=== PATIENT | female | born 1935 | race Caucasian/White ===

== ENCOUNTER → 2019-07-16 15:25 | Outpatient (BNVA) | payer MEDICARE, SELFPAY | PROVIDERS: Family Provider Family Medicine; PCP Family Medicine; Visit Provider Specialist | DX: G30.1 Alzheimer's disease with late onset (principal); F02.80 Dementia in other diseases classified elsewhere, unspecified severity, without behavioral disturbance, psychotic disturbance, mood disturbance, and anxiety | CPT/HCPCS: 99213; 99214 ==

== ENCOUNTER 2019-07-31 12:48 | Emergency (ER) | payer MEDICARE, SELFPAY ==
[2019-07-31 12:51] VITALS: BP 189/103; PULSE 90; RESP 14; TEMP 36.7; O2SAT 97; BMI 25.3
--- NOTE | 2019-07-31 13:10 | CT_ITS ---
WS: [id number] CT HEAD NONCONTRAST HISTORY: fall TECHNIQUE: Contiguous axial imaging performed through the brain in 2.5 mm imaging. Bone and soft tiss ue windows. Sagittal and coronal reformats reviewed. All CT scans at [facility] use at ast one of these dose optimization techniques: automated exposure control; mA and/or kV adjustment pe r patient size (includes targeted exams where dose is matched to clinical indication); or iterative r econstruction. DLP: 783.04 mGy.cm COMPARISON: None available. No acute intracranial hemorrhage, midline shift or mass effect. Mild symmetric atrophy. Mild chronic microvascular ischemic disease. Focal area of more decreased at tenuation in the RIGHT frontal lobe is most likely related to chronic ischemic disease. Ventricles: Normal size with no hydrocephalus. Paranasal sinuses: As visualized are clear. Mastoid air cells: Well pneumatized. Calvarium and scalp: No skull fracture is identified. There is a large acute scalp hematoma and lacer ation centered over the RIGHT lateral frontal bone. Mild atherosclerosis intracranial carotid arteries. CT/CT head wo con* [id number] IMPRESSION: 1. No acute intracranial hemorrhage or edema. 2. Large RIGHT frontal scalp hematoma and laceration.
--- NOTE | 2019-07-31 15:05 | ED_ITS ---
Entered by Dejah Garcia, acting as scribe for Alyx Sanchez MD Jul 31, 2019 12:48 HPI - Fall General: Chief Complaint: Fall Stated Complaint: fall Time Seen by Provider: 07/31/19 15:05 Source: patient Mode of arrival: wheelchair Limitations: no limitations History of Present Illness: HPI Narrative: 84 yo Female presents to ED with complaint of head pain post fall. Pt states that she thinks she tripped and fell, hitting her head on the door case. Pt denies any pain other than in her head. Pt denies any vomiting. MD complaint: fall Onset (ago): hour(s) (about 10:30 this morning) Fall from: standing Fall witnessed: no Place fall occurred: home Loss of consciousness: None Prolonged down time: no Symptoms prior to fall: none Context: tripped/slipped Location of injury: head Severity scale (1-10): 7 Associated symptoms-after fall: Reports headache(s); Denies abdominal pain, chest pain or neck pain Review of Systems Const: Denies: fever, chills, body aches or change in appetite Eyes: Denies: blurry vision or eye discomfort ENMT: Denies: throat pain or dental pain Card: Denies: chest pain Resp: Denies: shortness of breath GI: Denies: abdominal pain, nausea, vomiting or diarrhea : Denies: painful urination Musc: Denies: neck pain or back pain Skin/Breast: Denies: rash Neuro: Reports: headache Psych: Denies: depression Huang/Lymph: Denies: easy bruising All/Imm: Denies: hives PFSH ED PFSH: Statuses (acute, chronic, etc) shown below reflect problem list status as previously entered and may not be historically accurate Social History (Updated 07/16/19 @ 16:10 by Chanel Diana LPN) Smoking and tobacco status: never smoked Alcohol intake: never Physical Exam Const: COMMON NORMALS: no apparent distress, oriented x3 and healthy appearing HENMT: COMMON NORMALS: normocephalic; head/scalp not atraumatic HEAD & SCALP: normocephalic and hematoma right frontal ; not atraumatic Eye: COMMON NORMALS: PERRL and EOMs intact bilaterally PUPIL: Yes PERRL Neck/C-Spine: COMMON NORMALS: full ROM and supple Chest: COMMONS NORMALS: inspection of chest normal and palpation of chest normal Resp: COMMON NORMALS: normal respiratory effort, no retractions, no use of accessory muscles and clear to auscultation bilaterally AUSCULTATION: clear to auscultation bilaterally Cardio: COMMON NORMALS: regular rate, regular rhythm and no murmurs RATE: regular rate RHYTHM: regular rhythm GI: COMMON NORMALS: normal to inspection, nondistended, normoactive bowel sounds, soft to palpation, non-tender and no masses PALPATION: Yes soft Extremity: COMMON NORMALS: normal to inspection and full ROM Neuro: COMMON NORMALS: oriented x3, moves all extremities and no focal motor deficits Psych: COMMON NORMALS: mental status grossly normal, thought process normal and cooperative THOUGHT PROCESS: normal thought process Skin: COMMON NORMALS: no rashes or lesions noted and no wounds GENERAL SKIN EXAM: no rashes or lesions noted Course Vital Signs: Vital signs: Vital Signs Temperature 98.0 F 07/31/19 12:51 Pulse Rate 90 07/31/19 12:51 Respiratory Rate 14 07/31/19 12:51 Blood Pressure 189/103 07/31/19 12:51 Pulse Oximetry 97 07/31/19 12:51 MDM - Fall MDM Narrative: Medical decision making narrative: Patient presents here with a closed head injury from a fall. Patient's head CT here is negative. She has a mild headache and no other signs of injuries. She has no neck pain and no hip pain. Patient is amatory. Patient stable for discharge and is to follow-up with primary care doctor and return to ER if worsening. Imaging Data^: CT Head: Radiologist's impression: [address] [address] [address] Scan Report Signed Patient: Rebecca Longoria #: [id number] : 5Acct#:[id number] Age/Sex: 84 / FADM Date: 07/31/19 Loc: ERRoom/Bed: Attending Dr: Ordering Provider/Ordering MD: Alyx Sanchez MD Date of Service: 07/31/19 Procedure(s): CT head wo con* [id number] Accession Number(s): [id number] Report Number: [id number] WS: [id number] CT HEAD NONCONTRAST HISTORY: fall TECHNIQUE: Contiguous axial imaging performed through the brain in 2.5 mm frida ging. Bone and soft tissue windows. Sagittal and coronal reformats reviewed. All CT scans at [facility] use at least one of these dose optimization techniques: automated exposure control; mA and/or kV adjustment per patient size (includes targeted exams where dose is matched to clinical indication); or iterative reconstruction. DLP: 783.04 mGy.cm COMPARISON: None available. No acute intracranial hemorrhage, midline shift or mass effect. Mild symmetric atrophy. Mild chronic microvascular ischemic disease. Focal area of more decreased attenuation in the RIGHT frontal lobe is most likely related to chronic ischemic disease. Ventricles: Normal size with no hydrocephalus. Paranasal sinuses: As visualized are clear. Mastoid air cells: Well pneumatized. Calvarium and scalp: No skull fracture is identified. There is a large acute scalp hematoma and laceration centered over the RIGHT lateral frontal bone. Mild atherosclerosis intracranial carotid arteries. CT/CT head wo con* [id number] IMPRESSION: 1. No acute intracranial hemorrhage or edema. 2. Large RIGHT frontal scalp hematoma and laceration. Dictated By:Louise Fair DO Signed By:Louise Fair DOSigned Date/Time:07/31/19 1400 DD/ 1355 Discharge Plan Discharge Patient Disposition: Home, Self-Care Clinical Impression: Fall CHI (closed head injury) Qualifiers: Encounter type: initial encounter Qualified Code(s): S09.90XA - Unspecified injury of head, initial encounter Condition: Stable Prescriptions: No Action Xylimelts 550 mg muco-adhesive buccal tablet MUCOUS MEM ONCE RF: 0 apple cider vinegar 600 mg capsule 450 mg PO ONCE RF: 0 aloe vera 25 mg capsule PO ONCE RF: 0 prednisone 10 mg tablet 10 mg PO ONCE RF: 0 levothyroxine 50 mcg capsule 50 mcg PO ONCE RF: 0 hydroxychloroquine 200 mg tablet 200 mg PO BID RF: 0 acetaminophen [Tylenol] 325 mg capsule 325 mg PO ONCE RF: 0 melatonin 10 mg capsule 10 mg PO ONCE RF: 0 trazodone 100 mg tablet 100 mg PO ONCE RF: 0 folic acid 1 mg tablet 1 mg PO ONCE RF: 0 rivastigmine 9.5 mg/24 hr patch 24 hour 1 patch TRANSDERMA ONCE Qty: 30 RF: 5 Discharge Orders: Discharge Order (Routine); Ordered 07/31/19 Ordered By: Alyx Sanchez Referrals: Johnnie Tam, DO [Primary Care Provider] - 4-7 days Discharge Diet: Advance as tolerated Discharge Activity: Resume usual activity Patient Instructions: Minor Head Injury (ED), Fall Prevention (ED) Coding Level of Care Code ED Cloth Washer Back Tender for Chg Fwd Exam Problem Focused The documentation recorded by the Jose jesus Carmen, accurately reflects the service I personally performed and the decisions made by Laura velasco Korby, MD Jul 31, 2019 12:48
[2019-07-31] MEDS: acetaminophen 325 mg Tablet 650 MG PO (15:39)
[2019-07-31 15:48] VITALS: BP 118/73; PULSE 70; RESP 20; O2SAT 97
== END 2019-07-31 15:44 | disposition home or self-care (01) ==
PROVIDERS: Emergency Provider Emergency Medicine; Family Provider Family Medicine; PCP Family Medicine
DX: S09.8XXA Other specified injuries of head, initial encounter (principal); W01.0XXA Fall on same level from slipping, tripping and stumbling without subsequent striking against object, initial encounter; Y92.009 Unspecified place in unspecified non-institutional (private) residence as the place of occurrence of the external cause
CPT/HCPCS: 70450; 99281; 99282

== ENCOUNTER 2019-08-20 15:06 | Outpatient (CLI) | payer MEDICARE, SELFPAY ==
--- NOTE | 2019-08-20 15:27 | XR_ITS ---
WS: [id number] KNEE RIGHT TECHNIQUE: 3 views of the right knee CLINICAL INFORMATION: RIGHT HIP PAIN, RIGHT KNEE PAIN COMPARISON: None. FINDINGS: Postoperative changes right TKA. No evidence of hardware loosening. Hardware is in good position. Pat ellar resurfacing. Soft tissue edema. Patellar tendon enthesophyte. XR/XR knee RT 3V* [id number] IMPRESSION: 1. Postoperative changes right TKA. No evidence of loosening. Patellar resurfa cing.
--- NOTE | 2019-08-20 15:27 | XR_ITS ---
WS: [id number] HIP WITH PELVIS RIGHT TECHNIQUE: 3 views of the right hip with pelvis CLINICAL INFORMATION: RIGHT HIP PAIN, RIGHT KNEE PAIN COMPARISON: None. FINDINGS: Osteopenia. Moderate degenerative arthritis right hip with joint space narrowing. Normal pubic rami. No acute fractures. Pelvic phleboliths. XR/XR hip RT 2-3V wo/w pel* [id number] IMPRESSION: Moderate degenerative arthritis right hip. No acute fractures.
== END 2019-08-20 15:07 | disposition home or self-care (01) ==
LOC: RADWPI 15:09
PROVIDERS: Family Provider Family Medicine; PCP Family Medicine; Visit Provider Family Medicine
DX: M25.561 Pain in right knee (principal); W19.XXXA Unspecified fall, initial encounter; Z96.651 Presence of right artificial knee joint; M16.11 Unilateral primary osteoarthritis, right hip
CPT/HCPCS: 73502; 73562

== ENCOUNTER → 2019-09-05 08:46 | Outpatient (BNVA) | payer MEDICARE, SELFPAY | PROVIDERS: Family Provider Family Medicine; PCP Family Medicine; Visit Provider Specialist | DX: G31.83 Neurocognitive disorder with Lewy bodies; F02.80 Dementia in other diseases classified elsewhere, unspecified severity, without behavioral disturbance, psychotic disturbance, mood disturbance, and anxiety | CPT/HCPCS: 96116; 99214 ==

== ENCOUNTER 2019-09-11 06:00 | Outpatient (RCR) | payer MEDICARE, SELFPAY | END 2019-10-02 23:59 | disposition home or self-care (01) | LOC: SPT 06:00 | PROVIDERS: Family Provider Family Medicine; PCP Family Medicine; Referring Provider Family Medicine; Visit Provider Family Medicine | DX: R26.89 Other abnormalities of gait and mobility (principal); M62.81 Muscle weakness (generalized); G47.00 Insomnia, unspecified; F03.90 Unspecified dementia, unspecified severity, without behavioral disturbance, psychotic disturbance, mood disturbance, and anxiety | CPT/HCPCS: 97110; 97162 ==

== ENCOUNTER 2019-10-03 06:00 | Outpatient (RCR) | payer MEDICARE, SELFPAY | END 2019-11-01 23:59 | disposition home or self-care (01) | LOC: SPT 06:00 | PROVIDERS: Family Provider Family Medicine; PCP Family Medicine; Referring Provider Family Medicine; Visit Provider Family Medicine | DX: R26.89 Other abnormalities of gait and mobility (principal); M62.81 Muscle weakness (generalized); G47.00 Insomnia, unspecified; F03.90 Unspecified dementia, unspecified severity, without behavioral disturbance, psychotic disturbance, mood disturbance, and anxiety | CPT/HCPCS: 97110 ==

== ENCOUNTER → 2019-10-29 09:52 | Outpatient (BNVA) | payer MEDICARE, SELFPAY | PROVIDERS: Family Provider Family Medicine; PCP Family Medicine; Visit Provider Specialist | DX: G31.83 Neurocognitive disorder with Lewy bodies (principal); F02.80 Dementia in other diseases classified elsewhere, unspecified severity, without behavioral disturbance, psychotic disturbance, mood disturbance, and anxiety | CPT/HCPCS: 99213 ==

== ENCOUNTER → 2019-12-11 14:22 | Outpatient (BNVA) | payer MEDICARE, SELFPAY | PROVIDERS: Family Provider Family Medicine; PCP Family Medicine; Visit Provider Specialist | DX: G31.83 Neurocognitive disorder with Lewy bodies (principal); F02.80 Dementia in other diseases classified elsewhere, unspecified severity, without behavioral disturbance, psychotic disturbance, mood disturbance, and anxiety | CPT/HCPCS: 99213 ==

== ENCOUNTER → 2020-01-08 09:04 | Outpatient (BNVA) | payer MEDICARE, SELFPAY | PROVIDERS: Family Provider Family Medicine; PCP Family Medicine; Visit Provider Specialist | DX: G31.83 Neurocognitive disorder with Lewy bodies (principal) | CPT/HCPCS: 99213 ==

== ENCOUNTER → 2020-05-28 12:29 | Outpatient (BNVA) | payer MEDICARE, SELFPAY | PROVIDERS: Family Provider Family Medicine; PCP Family Medicine; Visit Provider Specialist | DX: F02.80 Dementia in other diseases classified elsewhere, unspecified severity, without behavioral disturbance, psychotic disturbance, mood disturbance, and anxiety (principal); G31.83 Neurocognitive disorder with Lewy bodies | CPT/HCPCS: 99213 ==

== ENCOUNTER 2020-07-24 15:14 | Outpatient (RCR) | payer MEDICARE, SELFPAY | END 2020-08-03 23:59 | disposition home or self-care (01) | LOC: SPT 15:14 | PROVIDERS: PCP Family Medicine; Referring Provider Family Medicine; Visit Provider Family Medicine | DX: R26.89 Other abnormalities of gait and mobility (principal); M62.81 Muscle weakness (generalized); Z91.81 History of falling | CPT/HCPCS: 97112; 97162 ==

== ENCOUNTER 2020-07-31 18:01 | Emergency (ER) | payer MEDICARE, SELFPAY ==
[2020-07-31] VITALS (8 sets, daily range): BP systolic 158–210; BP diastolic 78–108; PULSE 70–80; RESP 15–18; TEMP 36.7; O2SAT 97–100; BMI 26.2
--- NOTE | 2020-07-31 19:26 | CTR_ITS ---
PROCEDURE INFORMATION: Exam: CT Head Without Contrast Exam date and time: 07/31/2020 7:36 PM Age: 85 years old Clinical indication: Dizziness; Additional info: Dizzy TECHNIQUE: Imaging protocol: Computed tomography of the head without contrast. Radiation optimization: All CT scans at this facility use at least one of these dose optimization techniques: automated exposure control; mA and/or kV adjustment per patient size (includes targeted exams where dose is matched to clinical indication); or iterative reconstruction. COMPARISON: CT head wo con* [id number] 07/31/2019 2:03 PM RADIATION DOSE METRICS: Total DLP (mGy-cm): 768.05 FINDINGS: Brain: There is volume loss and periventricular low density compatible with chronic small vessel disease changes. There is no acute hemorrhage, edema or mass effect. There are small bifrontal benign hygromas. 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 Cerebral ventricles: No ventriculomegaly. Bones/joints: Unremarkable. No acute fracture. Paranasal sinuses: Visualized sinuses are unremarkable. No fluid levels. Mastoid air cells: There is unchanged trace opacity in the bilateral mastoid air cells. Soft tissues: Unremarkable. CT/CT head wo con* [id number] IMPRESSION: 1. No acute intracranial abnormality. 2. There is unchanged trace opacity in the bilateral mastoid air cells. Radiation Dose CTDIVOL = (mGy): DLP = 768.05 (mGy-cm)
--- NOTE | 2020-07-31 19:32 | ED_ITS ---
HPI - General Adult General: Chief complaint: General Medical Stated complaint: High blood pressure for a couple days Time Seen by Provider: 07/31/20 19:03 Source: patient Mode of arrival: ambulatory Limitations: no limitations History of Present Illness: HPI narrative: 85-year-old female states she been having high blood pressure over the last 2 to 3 weeks. Patient states she was started on metoprolol and her understanding she was supposed to take 1 tablet every other day. I reviewed her pill bottle and she is actually supposed to take 1 tablet twice a day so she has not been taking it for her blood pressure medicine. States she has had some slight dizziness. She denies any chest pain. Denies any worsening or improving factors. Associated symptoms: Deny chest pain, dyspnea, headache(s), nausea, rash or vomiting Review of Systems Const: Denies: fever(s), chills, body aches or change in appetite Eyes: Denies: blurry vision or eye discomfort ENMT: Denies: throat pain or dental pain Card: Denies: chest pain Resp: Denies: dyspnea GI: Denies: abdominal pain, nausea, vomiting or diarrhea : Denies: dysuria Musc: Denies: neck pain or back pain Skin/Breast: Denies: rash Neuro: Reports: dizziness; Denies: headache(s) Psych: Denies: depression Huang/Lymph: Denies: easy bruising All/Imm: Denies: urticaria PFSH ED PFSH: Medical History Pacemaker Surgical History S/P cardiac pacemaker procedure Family History Other CAD (coronary artery disease) Cancer Denies family history of Diabetes Hypertension Stroke Social History Smoking and tobacco status: never smoked Alcohol intake: never History of recent travel: No Physical Exam Const: COMMON NORMALS: no acute distress, patient oriented x3 and healthy appearing HENMT: COMMON NORMALS: normocephalic and atraumatic HEAD & SCALP: normocephalic and atraumatic Eye: COMMON NORMALS: Equal, round and reactive pupils present and EOMs intact bilaterally PUPIL: Yes Equal, round and reactive pupils present Neck/C-Spine: COMMON NORMALS: full ROM and supple Chest: COMMONS NORMALS: normal inspection of the chest and normal palpation of entire chest wall Resp: COMMON NORMALS: normal respiratory effort, No retractions, No use of accessory muscles and clear to auscultation bilaterally AUSCULTATION: clear to auscultation bilaterally Cardio: COMMON NORMALS: regular rate, regular rhythm and No murmurs present (Cardio) RATE: regular rate RHYTHM: regular rhythm GI: COMMON NORMALS: Normal to inspection, nondistended, normoactive bowel sounds present, Soft to palpation, non-tender and no masses PALPATION: Yes Soft to palpation Extremity: COMMON NORMALS: normal to inspection and full ROM Neuro: COMMON NORMALS: patient oriented x3, moves all extremities and no focal motor deficits Psych: COMMON NORMALS: mental status grossly normal, Normal thought process present and cooperative THOUGHT PROCESS: Normal thought process present Skin: COMMON NORMALS: no rashes or lesions noted and no wounds GENERAL SKIN EXAM: no rashes or lesions noted Course Vital Signs: Vital signs: Vital Signs Temperature 98.1 F 07/31/20 18:06 Pulse Rate 80 07/31/20 18:06 Respiratory Rate 16 07/31/20 18:06 Blood Pressure 189/103 07/31/20 18:06 Pulse Oximetry 99 07/31/20 18:06 MDM - General Adult MDM Narrative: Medical decision making narrative: Rebecca presents here with hypertension. After speaking to her she is actually been taking her medicine wrong. Said taking her metoprolol twice a day she has been taking it once every other day. This is likely causing her high blood pressure. I did inform her it probably help her to get a pillbox and will help her with her medications. Her blood pressure here is improved and her work appears all normal. She is stable for discharge and I informed her to take her blood pressure log and follow-up with her PCP. Lab Data: Labs: Lab Results 07/31/20 07/31/20 07/31/20 Range/Units 19:16 19:16 19:16 WBC 6.0 (4.0-10.0) 10^3/ uL RBC 4.36 (4.1-5.3) 10^6/u L Hgb 13.3 (11.5-15.3) g/dL Hct 42.9 (37.0-47.0) % MCV 98.4 (81-99) fL MCH 30.5 (28.0-34.0) pg MCHC 31.0 (30.0-36.0) g/dL RDW 12.8 (12.1-15.1) % Plt Count 199 (130-400) 10^3/c mm MPV 11.2 H (7.4-10.4) fL Neut % (Auto) 55.0 % Lymph % (Auto) 32.9 % Sac % (Auto) 8.4 % Eos % (Auto) 2.5 % Baso % (Auto) 1.0 % Neut # (Auto) 3.29 (1.8-7.7) 10^3/u L Lymph # (Auto) 2.0 (0.8-4.8) 10^3/u L Sac # (Auto) 0.5 (0.2-0.9) 10^3/u L Eos # (Auto) 0.2 (0.0-0.8) 10^3/u L Baso # (Auto) 0.1 (0.0-0.1) 10^3/u L Nucleated RBC % (a uto) 0 % Nucleated RBCs # 0.0 /100WBC Sodium 143 (136-145) mmol/L Potassium 3.9 (3.5-5.1) mmol/L Chloride 108 H (98-107) mmol/L Carbon Dioxide 29 (22-29) mmol/L Anion Gap 9.9 (5-19) BUN 19 (8-23) mg/dL Creatinine 0.9 (0.5-0.9) mg/dL GFR Calculation Not Reportable Glucose 96 (65-115) mg/dL Calculated Osmolal ity 298 H (285-295) mOsm/k g Calcium 9.7 (8.5-10.5) mg/dL TSH 2.37 (0.27-4.20) uIU/ mL [employer] 0.5 L (0.6-1.2) mmol/L Imaging Data^: CT Head: Attestation: I personally reviewed and interpreted this imaging study as follows: Radiologist's impression: [address] [address] [address] Scan Report Signed Patient: Rebecca Longoria Unit #: [id number] : 1935 Age/Sex: 85 / F ADM Date: 07/31/20 Loc: ER Room/Bed: Attending Dr: Ordering Provider/Ordering MD: Alyx Sanchez MD Date of Service: 07/31/20 Procedure(s): CT head wo con* [id number] Accession Number(s): [id number] Report Number: [id number] PROCEDURE INFORMATION: Exam: CT Head Without Contrast Exam date and time: 07/31/2020 7:36 PM Age: 85 years old Clinical indication: Dizziness; Additional info: Dizzy TECHNIQUE: Imaging protocol: Computed tomography of the head without contrast. Radiation optimization: All CT scans at this facility use at least one of these dose optimization techniques: automated exposure control; mA and/or kV adjustment per patient size (includes targeted exams where dose is matched to clinical indication); or iterative reconstruction. COMPARISON: CT head wo con* [id number] 07/31/2019 2:03 PM RADIATION DOSE METRICS: Total DLP (mGy-cm): 768.05 FINDINGS: Brain: There is volume loss and periventricular low density compatible with chronic small vessel disease changes. There is no acute hemorrhage, edema or mass effect. There are small bifrontal benign hygromas. 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 Cerebral ventricles: No ventriculomegaly. Bones/joints: Unremarkable. No acute fracture. Paranasal sinuses: Visualized sinuses are unremarkable. No fluid levels. Mastoid air cells: There is unchanged trace opacity in the bilateral mastoid air cells. Soft tissues: Unremarkable. CT/CT head wo con* [id number] IMPRESSION: 1. No acute intracranial abnormality. 2. There is unchanged trace opacity in the bilateral mastoid air cells. Radiation Dose CTDIVOL = (mGy): DLP = 768.05 (mGy-cm) Discharge Plan Discharge Patient Disposition: Home Clinical Impression: HTN (hypertension) with goal to be determined Condition: Stable Prescriptions: New metoprolol tartrate 25 mg tablet 25 mg PO BID Qty: 60 RF: 0 No Action levothyroxine 50 mcg capsule 50 mcg PO DAILY@0630 RF: 0 hydroxychloroquine 200 mg tablet 200 mg PO BID@0700,2100 RF: 0 acetaminophen [Tylenol] 325 mg capsule 487.5 mg PO BEDTIME@2099 RF: 0 folic acid 1 mg tablet 1 mg PO DAILY@0700 RF: 0 lithium carbonate 300 mg capsule See Rx Instructions PO BID RF: 0 latanoprost 0.005 % drops 1 drp ophthalmic (eye) BEDTIME@2099 RF: 0 metoprolol tartrate 25 mg tablet 25 mg PO Q12H RF: 0 rivastigmine [Exelon] 4.6 mg/24 hr patch 24 hour 1 patch transdermal Q24H RF: 0 Discharge Orders: Discharge ED (Routine); Ordered 07/31/20 Ordered By: Alyx Sanchez Referrals: Johnnie Tam, [Primary Care Provider] - 1-3 days Discharge Diet: Advance as tolerated Discharge Activity: Resume usual activity Patient Instructions: Hypertension (ED) Coding Level of Care Code ED Aquatic Instructor for Daniel Fwd Exam Comprehensive
[2020-07-31 19:35] LABS: Basophils # 0.1 10^3/uL (0.0-0.1); Eosinophils # 0.2 10^3/uL (0.0-0.8); Eosinophils % 2.5 %; Hematocrit 42.9 % (37.0-47.0); Hemoglobin 13.3 g/dL (11.5-15.3); Lymphocytes % 32.9 %; Mean Corpuscular Hemoglobin 30.5 pg (28.0-34.0); Mean Corpuscular Volume 98.4 fL (81-99); Mean Platelet Volume 11.2 fL (7.4-10.4); Monocytes # 0.5 10^3/uL (0.2-0.9); Monocytes % 8.4 %; Neutrophils # 3.29 10^3/uL (1.8-7.7); Nucleated Red Blood Cells % 0 %; Platelet Count 199 10^3/cmm (130-400); Red Blood Count 4.36 10^6/uL (4.1-5.3); Red Cell Distribution Width 12.8 % (12.1-15.1)
[2020-07-31 20:02] LABS: Lithium 0.5 mmol/L (0.6-1.2)
[2020-07-31 20:12] LABS: Anion Gap 9.9 (5-19); Blood Urea Nitrogen 19 mg/dL (8-23); Calcium 9.7 mg/dL (8.5-10.5); Carbon Dioxide 29 mmol/L (22-29); Chloride 108 mmol/L (98-107); Glucose 96 mg/dL (65-115); Osmolality Calculated 298 mOsm/kg (285-295); Potassium 3.9 mmol/L (3.5-5.1); Sodium 143 mmol/L (136-145); Thyroid Stimulating Hormone 2.37 uIU/mL (0.27-4.20)
[2020-07-31] MEDS: labetalol 5 mg/mL SDV 20mL 10 MG IVP (20:15)
== END 2020-07-31 21:09 | disposition home or self-care (01) ==
PROVIDERS: Emergency Provider Emergency Medicine; PCP Family Medicine
DX: I10 Essential (primary) hypertension (principal); Z95.0 Presence of cardiac pacemaker
CPT/HCPCS: 12345; 70450; 80048; 80178; 84443; 85025; 96374; 99283; J3490

== ENCOUNTER → 2020-10-22 12:17 | Outpatient (BNVA) | payer MEDICARE, SELFPAY | PROVIDERS: PCP Family Medicine; Visit Provider Specialist | DX: G31.83 Neurocognitive disorder with Lewy bodies (principal); F02.80 Dementia in other diseases classified elsewhere, unspecified severity, without behavioral disturbance, psychotic disturbance, mood disturbance, and anxiety | CPT/HCPCS: 99213 ==

== ENCOUNTER 2021-01-01 06:56 | Emergency (ER) | payer MEDICARE, SELFPAY ==
[2021-01-01 07:26] VITALS: BP 179/106; PULSE 77; RESP 16; TEMP 36.5; O2SAT 97; BMI 24.8
--- NOTE | 2021-01-01 07:37 | XR_ITS ---
WS: [id number] Left knee, 3 views, 01/01/2021 Clinical Data: fall Comparison: None. Findings: No fractures or dislocations are seen. The left knee arthroplasty is intact. No loosening is seen.. T he patella is intact. The soft tissues are unremarkable. XR/XR knee LT 3V* [id number] Impression: 1. Negative for left knee fracture. 2. Intact left knee arthroplasty. Kellgren-Kb Classification: NA
--- NOTE | 2021-01-01 07:37 | W.ED.FALL ---
HPI - Fall General: Chief Complaint: Fall Stated Complaint: FALL Time Seen by Provider: 01/01/21 07:30 Source: patient Mode of arrival: ambulatory Limitations: no limitations History of Present Illness: HPI Narrative: Patient is an 85-year-old female who presents to ED today with complaint of left knee pain following a fall that occurred yesterday. Patient tells me she was coming into her house from the garage and thinks she possibly tripped on one of the steps. She states there was also a box on the ground so is not sure if she tripped on the box. Patient states she never had any feeling of lightheadedness, dizziness. No chest pain, shortness of breath, palpitations. Patient has felt completely normal since the fall with the exception of her left knee pain. Patient has been ambulatory on the extremity since the incident. She states following the fall she could not get up from the ground secondary to my knees not working like that stating she has bilateral knee prosthesis. She states she was able to crawl to the living room and then use a piece of furniture to help pull herself up. She did not strike her head or lose consciousness. She does not complain of neck or back pain. No prolonged downtime. MD complaint: fall Onset (ago): day(s) (yesterday) Fall from: standing Fall witnessed: no Place fall occurred: home Loss of consciousness: None Prolonged down time: no Symptoms prior to fall: none Context: tripped/slipped Location of injury - extremities: Left: knee Associated symptoms-after fall: Denies abdominal pain, chest pain, confusion, difficulty walking, headache(s), lightheadedness, neck pain or vertigo Review of Systems Const: Denies: fever(s), chills, body aches, change in appetite, change in weight, fatigue or malaise Eyes: Denies: change in vision, blurry vision, photophobia, floaters or seeing flashes Card: Denies: chest pain, palpitations, irregular heart rhythm, edema, swelling of feet/ankles, lightheadedness, syncope, pre-syncope or dyspnea on exertion Resp: Denies: dyspnea GI: Denies: abdominal pain, nausea or vomiting : Denies: flank pain or dysuria Musc: Reports: joint pain (L knee) and joint swelling (L knee); Denies: neck pain, back pain, extremity pain, extremity swelling, joint redness, joint warmth or limited range of motion Skin/Breast: Reports: other (bruising to L knee) Neuro: Denies: headache(s), numbness in extremities, weakness in extremities, sensory changes, lack of coordination, difficulty walking, frequent falls, dizziness, vertigo, confusion, behavioral changes, Slurred speech present, difficulty communicating thoughts or seizure-like activity PFS ED PFSH: Medical History Pacemaker Surgical History S/P cardiac pacemaker procedure Family History Other CAD (coronary artery disease) Cancer Denies family history of Diabetes Hypertension Stroke Social History Smoking and tobacco status: never smoked Alcohol intake: never History of recent travel: No Physical Exam Const: COMMON NORMALS: no acute distress, average body habitus, patient oriented x3, no limitations, healthy appearing, alert and well nourished GENERAL APPEARANCE: cooperative ORIENTATION/CONSCIOUSNESS: Yes awake, Yes oriented to person, Yes oriented to place and Yes oriented to time HENMT: COMMON NORMALS: normocephalic and atraumatic HEAD & SCALP: normal to inspection, normocephalic and atraumatic FACE & SINUS: normal facial exam Eye: GENERAL EYE: appearance normal, both eyes and all related structures Neck/C-Spine: COMMON NORMALS: full ROM CERVICAL SPINE: Yes cervical ROM normal, No pain with cervical ROM, No Cervical spine tenderness and No Paracervical muscle tenderness Chest: COMMONS NORMALS: normal inspection of the chest and normal palpation of entire chest wall Resp: COMMON NORMALS: normal respiratory effort and clear to auscultation bilaterally AUSCULTATION: clear to auscultation bilaterally Cardio: COMMON NORMALS: regular rate and regular rhythm RATE: regular rate RHYTHM: regular rhythm Back/Pelvis: COMMON NORMALS: thoracic and lumbar spine normal to inspection, no thoracic nor lumbar tenderness, thoraco-lumbar ROM normal and straight leg raise negative bilaterally Extremity: GENERAL: Yes normal exam except as noted LEFT LOWER EXTREMITY: Yes knee joint (see below) OTHER: she has an area of healing ecchymosis to superior aspect of anterior knee that she states was from bumping it against something 2 wks ago; she has a small area of new ecchymosis to anterior knee just below patella; no obvious swelling noted; maintains fairly normal ROM; NV intact Neuro: COMMON NORMALS: patient oriented x3 SENSORIUM/ORIENTATION: Yes alert, Yes oriented to person, Yes oriented to place and Yes oriented to time Course Vital Signs: Vital signs: Vital Signs Temperature 97.7 F 01/01/21 07:26 Pulse Rate 69 01/01/21 07:40 Respiratory Rate 15 01/01/21 07:40 Blood Pressure 182/77 01/01/21 07:40 Pulse Oximetry 99 01/01/21 07:40 MDM - Fall Imaging Data^: XR L knee: My impression: NAD; no fxs noted; hardware appears intact Discharge Plan Discharge Patient Disposition: Home Clinical Impression: Acute pain of left knee Fall Qualifiers: Encounter type: initial encounter Qualified Code(s): W19.XXXA - Unspecified fall, initial encounter Condition: Stable Prescriptions: No Action levothyroxine 50 mcg capsule 50 mcg PO DAILY@0630 RF: 0 hydroxychloroquine 200 mg tablet 200 mg PO BID@0700,2100 RF: 0 acetaminophen [Tylenol] 325 mg capsule 487.5 mg PO BEDTIME@2100 RF: 0 folic acid 1 mg tablet 1 mg PO DAILY@0700 RF: 0 lithium carbonate 300 mg capsule See Rx Instructions PO BID RF: 0 rivastigmine [Exelon Patch] 4.6 mg/24 hour patch 24 hour 1 patch transdermal Q24H Qty: 30 RF: 5 latanoprost 0.005 % drops 1 drp ophthalmic (eye) BEDTIME@2100 RF: 0 metoprolol tartrate 25 mg tablet 25 mg PO Q12H RF: 0 metoprolol tartrate 25 mg tablet 25 mg PO BID Qty: 60 RF: 0 Discharge Orders: Discharge ED (Routine); Ordered 01/01/21 Ordered By: Romelia Omalley Referrals: Johnnie Tam DO [Primary Care Provider] - Coding Level of Care Code ED [facility] [employer] for Chg Fwd Exam Comprehensive
[2021-01-01 07:40] VITALS: BP 182/77; PULSE 69; RESP 15; O2SAT 99
[2021-01-01 09:17] VITALS: BP 182/77; PULSE 69; RESP 15; O2SAT 99
== END 2021-01-01 09:18 | disposition home or self-care (01) ==
PROVIDERS: Emergency Provider Physician Assistant; PCP Family Medicine
DX: M25.562 Pain in left knee (principal); W19.XXXA Unspecified fall, initial encounter; Z96.652 Presence of left artificial knee joint
CPT/HCPCS: 73562; 99282

== ENCOUNTER 2021-01-06 09:09 | Outpatient (CLI) | payer MEDICARE, SELFPAY ==
--- NOTE | 2021-01-06 09:25 | XRR_ITS ---
PROCEDURE INFORMATION: Exam: XR Bilateral Hips Exam date and time: 01/06/2021 9:25 AM Age: 85 years old Clinical indication: Pain and injury or trauma; Fall; Blunt trauma (contusions or hematomas); Bilateral; Hip pain and pelvic pain; Injury date: 07/2020; Additional info: Hip pain/low back pain/hx of accidental fall TECHNIQUE: Imaging protocol: XR bilateral hips. Views: 2 views of hips with pelvis when performed. COMPARISON: CR XR hip RT 2-3V wo/w pel* [id number] 08/20/2019 3:32 PM FINDINGS: Bones/joints: There is mild degenerative changes of the hip joints, manifested by joint space narrowing and periarticular osteophytes. No acute fracture or dislocation seen. Soft tissues: Unremarkable. XR/XR hip BI 3-4V wo/w pel [id number] IMPRESSION: 1. No acute injury. 2. 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
--- NOTE | 2021-01-06 09:25 | XRR_ITS ---
PROCEDURE INFORMATION: Exam: XR Lumbosacral Spine Exam date and time: 01/06/2021 9:25 AM Age: 85 years old Clinical indication: Pain and injury or trauma; Fall; Blunt trauma (contusions or hematomas); Low back pain; Injury date: 07/2020; Additional info: Hip pain/low back pain/hx of accidental fall TECHNIQUE: Imaging protocol: XR of the lumbosacral spine. Views: 2 or 3 views. COMPARISON: CR XR hip RT 2-3V wo/w pel* [id number] 08/20/2019 3:32 PM FINDINGS: Bones/joints: There is mild dextrocurvature of the lumbar spine. The normal lumbar lordosis is maintained, with grade 1 retrolisthesis of L2. There is mild loss of height along the superior endplate of L2, with evidence of sclerosis, suggestive of chronic fracture. No clear evidence of acute fracture. There is multilevel degenerative changes, manifested by intervertebral disc space narrowing, endplate osteophytes and facet joint arthrosis. Soft tissues: Unremarkable. Vasculature: Aortic atherosclerotic calcifications noted. XR/XR lumbar spine 2-3V* [id number] IMPRESSION: 1. No acute injury. 2. Chronic appearing mild loss of height of the L2 superior endplate. 3. Degenerative changes of the lumbar spine.
== END 2021-01-06 09:10 | disposition home or self-care (01) ==
PROVIDERS: PCP Family Medicine; Visit Provider Nurse Practitioner Family
DX: M25.551 Pain in right hip (principal); M25.552 Pain in left hip; M54.2 Cervicalgia; W19.XXXA Unspecified fall, initial encounter
CPT/HCPCS: 72100; 73522

== ENCOUNTER → 2021-07-11 16:50 | Outpatient (BNVA) | payer MEDICARE, SELFPAY | PROVIDERS: PCP Family Medicine; Visit Provider Family Medicine | DX: N39.0 Urinary tract infection, site not specified (principal) | CPT/HCPCS: 81000 ==

== ENCOUNTER 2021-07-12 17:20 | Observation (INO) | payer MEDICARE, SELFPAY ==
--- NOTE | 2021-07-12 17:23 | ED_ITS ---
Documented by User: Christopher Singleton MD 07/18/21 21:59 HPI - Altered Mental Status General: Chief Complaint: Altered Mental Status Stated Complaint: AMS Time Seen by Provider: 07/12/21 17:23 Source: patient, RN notes reviewed and old records reviewed Limitations: altered mental status History of Present Illness: HPI narrative: Ms. Longoria is an 86-year-old lady who per chart review has a history of hypertension, pacemaker, Parkinson's, Lewy body dementia, and visit for urinary tract infection started on Bactrim who presents to the emergency department due to altered mental status. History is severely limited by mental status. Per nursing report and review of chart patient has been confused perhaps since however more confused today. She was seen in clinic yesterday as noted. The patient apparently does take lithium and it was recommended in previous note by Dr. Villarreal that if patient continues to worsen/fails to improve that she needs to come to the [facility]. 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 Surgical History (Updated 07/12/21 @ 20:50 by Genna Bryant MD) History of bilateral knee arthroplasty S/P cardiac pacemaker procedure S/P carpal tunnel release S/P eye surgery S/P foot surgery S/P hysterectomy Family History Other CAD (coronary artery disease) Cancer Denies family history of Diabetes Hypertension Stroke Social History (Updated 07/12/21 @ 21:18 by Genna Bryant MD) Smoking and tobacco status: never smoked Alcohol intake: never Marital status: / Physical Exam Const: COMMON NORMALS: alert; negative for patient oriented x3 GENERAL APPEARANCE: ill appearing (mildly) ORIENTATION/CONSCIOUSNESS: Yes confused HENMT: COMMON NORMALS: normocephalic, atraumatic and Normal external nose present HEAD & SCALP: normocephalic and atraumatic NOSE: Normal external nose present MOUTH: Normal oral and palatal mucosa present (dry) THROAT: posterior oropharynx normal Eye: COMMON NORMALS: Equal, round and reactive pupils present and conjunctivae normal CONJUNCTIVA: Yes conjunctivae normal SCLERA: sclerae normal PUPIL: Yes Equal, round and reactive pupils present Neck/C-Spine: COMMON NORMALS: supple GENERAL: Yes trachea midline Resp: COMMON NORMALS: normal respiratory effort EFFORT & INSPECTION: Yes able to speak in complete sentences Cardio: COMMON NORMALS: regular rate and regular rhythm RATE: regular rate RHYTHM: regular rhythm GI: COMMON NORMALS: Soft to palpation PALPATION: Yes Soft to palpation, Yes Tenderness to palpation present (GI), No Guarding due to palpation present (GI) and No Rigid due to palpation Extremity: GENERAL: Yes normal exam except as noted and No edema Neuro: COMMON NORMALS: moves all extremities; negative for patient oriented x3 SENSORIUM/ORIENTATION: Yes alert and No Orientation impaired Psych: THOUGHT PROCESS: confused MEMORY/COGNITION: Yes memory grossly impaired Course ED course: - Patient was seen and evaluated by me at bedside - Patient placed on cardiac monitors, IV access obtained - Initial evaluation notable for confused and unable to provide significant history though no focality on neurologic exam. - Labs and imaging were ordered. -Patient care handed off to overnight ED physician pending completion of ED evaluation and likely admission. - Per review patient is supratherapeutic on lithium. Admitted for further treatment and management Note: Click bubbles or prepopulated ocampo in note writing are used for assistance with data collection and billing and are inherently more limited than narrative and other text portions of this note. Please use narrative for additional clinical history and defer to narrative/free test for any case of contradictory information. If information appears in only free text or click bubble it should be considered present or absent as reported. Please contact note senior underwriter for clarifications of clinical information or contradictory information. MDM is a brief summary, contradictory or erroneous seeming information should be clarified and full note griselda Vital Signs: Vital signs: Vital Signs Temperature 98.1 F 07/15/21 17:07 Pulse Rate 76 07/15/21 17:07 Respiratory Rate 18 07/15/21 17:07 Blood Pressure 159/76 07/15/21 17:07 Pulse Oximetry 94 07/15/21 17:07 MDM - Altered Mental Status Medical Records: Attestation: I reviewed the patient's medical records. Lab Data: Attestation: I reviewed the patient's lab results. Labs: Lab Results 07/12/21 07/12/21 07/12/21 18:02 18:02 18:02 WBC 10.0 10^3/uL 10^3 /uL (4.0-10.0) RBC 4.85 10^6/uL 10^6 /uL (4.1-5.3) Hgb 15.0 g/dL g/dL (11.5-15.3) Hct 44.5 % % (37.0-47.0) MCV 91.8 fl fl (81-99) MCH 30.9 pg pg (28.0-34.0) MCHC 33.7 g/dL g/dL (30.0-36.0) RDW 12.9 % % (12.1-15.1) Plt Count 202 10^3/cmm 10^3 /cmm (130-400) MPV 11.6 fL H fL (7.4-10.4) Neut % (Auto) 76.1 % % Lymph % (Auto) 14.6 % % [place] % (Auto) 7.4 % % Eos % (Auto) 1.3 % % Baso % (Auto) 0.3 % % Neut # (Auto) 7.57 10^3/uL 10^3 /uL (1.8-7.7) Lymph # (Auto) 1.5 10^3/uL 10^3/ uL (0.8-4.8) [place] # (Auto) 0.7 10^3/uL 10^3/ uL (0.2-0.9) Eos # (Auto) 0.1 10^3/uL 10^3/ uL (0.0-0.8) Baso # (Auto) 0.0 10^3/uL 10^3/ uL (0.0-0.1) Nucleated RBC % (a uto) 0 % % Nucleated RBCs # 0.0 /100WBC /100W BC Sodium 132 mmol/L L mmol /L (136-145) Potassium 4.3 mmol/L mmol/L (3.5-5.1) Chloride 101 mmol/L mmol/L (98-107) Carbon Dioxide 17 mmol/L L mmol/ L (22-29) Anion Gap 18.3 (5-19) BUN 22 mg/dL mg/dL (8-23) Creatinine 1.2 mg/dL H mg/dL (0.5-0.9) GFR Calculation Not Reportable Glucose 88 mg/dL mg/dL (65-115) POC Glucose Calculated Osmolal ity 277 mOsm/kg L mOs m/kg (285-295) Lactic Acid 0.9 mmol/L mmol/L (0.5-2.2) Calcium 9.6 mg/dL mg/dL (8.5-10.5) Total Bilirubin 0.4 mg/dL mg/dL (0.15-1.2) AST 22 U/L U/L (0-32) ALT 15 U/L U/L (0-33) Alkaline Phosphata se 81 IU/L IU/L (35-105) Creatine Kinase Total Protein 6.5 g/dL L g/dL (6.6-8.7) Albumin 4.3 g/dL g/dL (3.5-5.2) Globulin 2.2 g/dL g/dL (1.3-4.6) TSH 0.21 uIU/mL L uIU /mL (0.27-4.20) Free T4 Free T3 Urine Color Urine Appearance Urine pH Ur Specific Gravit y Urine Protein Urine Glucose (UA) Urine Ketones Urine Blood Urine Nitrate Urine Bilirubin Urine Urobilinogen Ur Leukocyte Alexandra ase Salicylates Urine Opiates Scre en Acetaminophen Ur Barbiturates Sc reen Ur Phencyclidine S crn Ur Amphetamines Sc reen U Benzodiazepines Scrn [place] Urine Cocaine Scre en U Marijuana (THC) Screen Ethyl Alcohol Coronavirus 229E ( PCR) SARS-CoV-2 (PCR) SARS-CoV-2 Ag (Rap id) 07/12/21 07/12/21 07/12/21 18:02 18:02 18:02 WBC RBC Hgb Hct MCV MCH MCHC RDW Plt Count MPV Neut % (Auto) Lymph % (Auto) [place] % (Auto) Eos % (Auto) Baso % (Auto) Neut # (Auto) Lymph # (Auto) [place] # (Auto) Eos # (Auto) Baso # (Auto) Nucleated RBC % (a uto) Nucleated RBCs # Sodium Potassium Chloride Carbon Dioxide Anion Gap BUN Creatinine GFR Calculation Glucose POC Glucose Calculated Osmolal ity Lactic Acid Calcium Total Bilirubin AST ALT Alkaline Phosphata se Creatine Kinase 73 U/L U/L (26-192) Total Protein Albumin Globulin TSH Free T4 2.18 ng/dL H ng/d L (0.82-1.77) Free T3 2.7 PG/ML PG/ML (2.0-4.4) Urine Color Yellow (Yellow) Urine Appearance Clear (CLEAR) Urine pH 7 (5-7) Ur Specific Gravit y 1.005 (1.005-1.030) Urine Protein Neg (Negative) Urine Glucose (UA) Norm (Normal) Urine Ketones Negative (Negative) Urine Blood Neg (Negative) Urine Nitrate Negative (Negative) Urine Bilirubin Neg (Negative) Urine Urobilinogen Norm mg/dL mg/dL (Negative) Ur Leukocyte Alexandra ase Negative (Negative) Salicylates Urine Opiates Scre en Acetaminophen Ur Barbiturates Sc reen Ur Phencyclidine S crn Ur Amphetamines Sc reen U Benzodiazepines Scrn [place] 2.5 mmol/L H* mmo l/L (0.6-1.2) Urine Cocaine Scre en U Marijuana (THC) Screen Ethyl Alcohol Coronavirus 229E ( PCR) SARS-CoV-2 (PCR) SARS-CoV-2 Ag (Rap id) 07/12/21 07/12/21 07/12/21 18:02 18:02 18:21 WBC RBC Hgb Hct MCV MCH MCHC RDW Plt Count MPV Neut % (Auto) Lymph % (Auto) [place] % (Auto) Eos % (Auto) Baso % (Auto) Neut # (Auto) Lymph # (Auto) [place] # (Auto) Eos # (Auto) Baso # (Auto) Nucleated RBC % (a uto) Nucleated RBCs # Sodium Potassium Chloride Carbon Dioxide Anion Gap BUN Creatinine GFR Calculation Glucose POC Glucose 87 mg/dL mg/dL (70-110) Calculated Osmolal ity Lactic Acid Calcium Total Bilirubin AST ALT Alkaline Phosphata se Creatine Kinase Total Protein Albumin Globulin TSH Free T4 Free T3 Urine Color Urine Appearance Urine pH Ur Specific Gravit y Urine Protein Urine Glucose (UA) Urine Ketones Urine Blood Urine Nitrate Urine Bilirubin Urine Urobilinogen Ur Leukocyte Alexandra ase Salicylates < 0.3 mg/dL L mg/ dL (3-10) Urine Opiates Scre en Negative ng/mL ng /mL (Negative) Acetaminophen < 5.0 ug/mL L ug/ mL (10-30) Ur Barbiturates Sc reen Negative ng/mL ng /mL (Negative) Ur Phencyclidine S crn Negative ng/mL ng /mL (Negative) Ur Amphetamines Sc reen Negative ng/mL ng /mL (Negative) U Benzodiazepines Scrn Negative ng/mL ng /mL (Negative) [place] Urine Cocaine Scre en Negative ng/mL ng /mL (Negative) U Marijuana (THC) Screen Negative ng/mL ng /mL (Negative) Ethyl Alcohol < 10 mg/dL mg/dL (0-10) Coronavirus 229E ( PCR) SARS-CoV-2 (PCR) SARS-CoV-2 Ag (Rap id) 07/12/21 07/12/21 21:36 22:35 WBC RBC Hgb Hct MCV MCH MCHC RDW Plt Count MPV Neut % (Auto) Lymph % (Auto) [place] % (Auto) Eos % (Auto) Baso % (Auto) Neut # (Auto) Lymph # (Auto) [place] # (Auto) Eos # (Auto) Baso # (Auto) Nucleated RBC % (a uto) Nucleated RBCs # Sodium Potassium Chloride Carbon Dioxide Anion Gap BUN Creatinine GFR Calculation Glucose POC Glucose Calculated Osmolal ity Lactic Acid Calcium Total Bilirubin AST ALT Alkaline Phosphata se Creatine Kinase Total Protein Albumin Globulin TSH Free T4 Free T3 Urine Color Urine Appearance Urine pH Ur Specific Gravit y Urine Protein Urine Glucose (UA) Urine Ketones Urine Blood Urine Nitrate Urine Bilirubin Urine Urobilinogen Ur Leukocyte Alexandra ase Salicylates Urine Opiates Scre en Acetaminophen Ur Barbiturates Sc reen Ur Phencyclidine S crn Ur Amphetamines Sc reen U Benzodiazepines Scrn [place] Urine Cocaine Scre en U Marijuana (THC) Screen Ethyl Alcohol Coronavirus 229E ( PCR) Not detected (NOT DETECT) SARS-CoV-2 (PCR) Not detected (NOT DETECT) SARS-CoV-2 Ag (Rap id) Negative (Negative) EKG Data^: EKG 1: Attestation: I personally reviewed and interpreted this EKG as follows: EKG interpretation date: 07/12/21 EKG interpretation time: 18:22 Interpretation: Twelve-lead EKG shows a regular rhythm at a rate of 70. MS interval 250. QRS duration 125. QTc 433. Left [place] deviation. Interpretation: Electronic atrially paced rhythm. Bundle branch block. Discharge Plan Discharge Patient Disposition: Admitted As Inpatient Admit Provider: Genna Bryant Clinical Impression: [place] toxicity, Acute renal insufficiency Condition: Stable Discharge Diet: Soft Mechanical Discharge Activity: Resume usual activity Coding Level of Care Code ED Silk Screen Etcher for Chg Fwd Exam Comprehensive Documented by User: Robert Mercado DO 07/12/21 23:10 HPI - Altered Mental Status General: Chief Complaint: Altered Mental Status Stated Complaint: AMS Time Seen by Provider: 07/12/21 17:23 PFSH ED PFSH: Medical History (Updated 07/16/21 @ 00:01 by ) Depression Glaucoma Hypertension Hyperthyroidism Hypothyroidism Lewy body dementia [place] toxicity Long-term use of hydroxychloroquine for treatment of unclear diagnosis 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 Surgical History (Updated 07/12/21 @ 20:50 by Genna Bryant MD) History of bilateral knee arthroplasty S/P cardiac pacemaker procedure S/P carpal tunnel release S/P eye surgery S/P foot surgery S/P hysterectomy Family History Other CAD (coronary artery disease) Cancer Denies family history of Diabetes Hypertension Stroke Social History (Updated 07/12/21 @ 21:18 by Genna Bryant MD) Smoking and tobacco status: never smoked Alcohol intake: never Marital status: / Course Consultations: Consultation #1: aryan Vital Signs: Vital signs: Vital Signs Temperature 98.1 F 07/15/21 17:07 Pulse Rate 76 07/15/21 17:07 Respiratory Rate 18 07/15/21 17:07 Blood Pressure 159/76 07/15/21 17:07 Pulse Oximetry 94 07/15/21 17:07 MDM - Altered Mental Status MDM Narrative: Medical decision making narrative: 86-year-old female checked out to me by the previous physician at shift change. This lady has a worsening mental status. She was diagnosed with a urinary tract infection on the day prior. Urine appears less suspicious today. Her creatinine is 1.2. Her bicarbonate level 17. Her sodium is 132. Her lithium is toxic at 2.5. This is more likely a cause of her decreased mental status she will be admitted for hydration, holding her lithium, other measures as necessary for lithium toxicity. Hospitalist has evaluated the patient in the ER. Lab Data: Labs: Lab Results 07/12/21 07/12/21 07/12/21 18:02 18:02 18:02 WBC 10.0 10^3/uL 10^3 /uL (4.0-10.0) RBC 4.85 10^6/uL 10^6 /uL (4.1-5.3) Hgb 15.0 g/dL g/dL (11.5-15.3) Hct 44.5 % % (37.0-47.0) MCV 91.8 fl fl (81-99) MCH 30.9 pg pg (28.0-34.0) MCHC 33.7 g/dL g/dL (30.0-36.0) RDW 12.9 % % (12.1-15.1) Plt Count 202 10^3/cmm 10^3 /cmm (130-400) MPV 11.6 fL H fL (7.4-10.4) Neut % (Auto) 76.1 % % Lymph % (Auto) 14.6 % % [place] % (Auto) 7.4 % % Eos % (Auto) 1.3 % % Baso % (Auto) 0.3 % % Neut # (Auto) 7.57 10^3/uL 10^3 /uL (1.8-7.7) Lymph # (Auto) 1.5 10^3/uL 10^3/ uL (0.8-4.8) [place] # (Auto) 0.7 10^3/uL 10^3/ uL (0.2-0.9) Eos # (Auto) 0.1 10^3/uL 10^3/ uL (0.0-0.8) Baso # (Auto) 0.0 10^3/uL 10^3/ uL (0.0-0.1) Nucleated RBC % (a uto) 0 % % Nucleated RBCs # 0.0 /100WBC /100W BC Sodium 132 mmol/L L mmol /L (136-145) Potassium 4.3 mmol/L mmol/L (3.5-5.1) Chloride 101 mmol/L mmol/L (98-107) Carbon Dioxide 17 mmol/L L mmol/ L (22-29) Anion Gap 18.3 (5-19) BUN 22 mg/dL mg/dL (8-23) Creatinine 1.2 mg/dL H mg/dL (0.5-0.9) GFR Calculation Not Reportable Glucose 88 mg/dL mg/dL (65-115) POC Glucose Calculated Osmolal ity 277 mOsm/kg L mOs m/kg (285-295) Lactic Acid 0.9 mmol/L mmol/L (0.5-2.2) Calcium 9.6 mg/dL mg/dL (8.5-10.5) Total Bilirubin 0.4 mg/dL mg/dL (0.15-1.2) AST 22 U/L U/L (0-32) ALT 15 U/L U/L (0-33) Alkaline Phosphata se 81 IU/L IU/L (35-105) Creatine Kinase Total Protein 6.5 g/dL L g/dL (6.6-8.7) Albumin 4.3 g/dL g/dL (3.5-5.2) Globulin 2.2 g/dL g/dL (1.3-4.6) TSH 0.21 uIU/mL L uIU /mL (0.27-4.20) Free T4 Free T3 Urine Color Urine Appearance Urine pH Ur Specific Gravit y Urine Protein Urine Glucose (UA) Urine Ketones Urine Blood Urine Nitrate Urine Bilirubin Urine Urobilinogen Ur Leukocyte Alexandra ase Salicylates Urine Opiates Scre en Acetaminophen Ur Barbiturates Sc reen Ur Phencyclidine S crn Ur Amphetamines Sc reen U Benzodiazepines Scrn [place] Urine Cocaine Scre en U Marijuana (THC) Screen Ethyl Alcohol Coronavirus 229E ( PCR) SARS-CoV-2 (PCR) SARS-CoV-2 Ag (Rap id) 07/12/21 07/12/21 07/12/21 18:02 18:02 18:02 WBC RBC Hgb Hct MCV MCH MCHC RDW Plt Count MPV Neut % (Auto) Lymph % (Auto) [place] % (Auto) Eos % (Auto) Baso % (Auto) Neut # (Auto) Lymph # (Auto) [place] # (Auto) Eos # (Auto) Baso # (Auto) Nucleated RBC % (a uto) Nucleated RBCs # Sodium Potassium Chloride Carbon Dioxide Anion Gap BUN Creatinine GFR Calculation Glucose POC Glucose Calculated Osmolal ity Lactic Acid Calcium Total Bilirubin AST ALT Alkaline Phosphata se Creatine Kinase 73 U/L U/L (26-192) Total Protein Albumin Globulin TSH Free T4 2.18 ng/dL H ng/d L (0.82-1.77) Free T3 2.7 PG/ML PG/ML (2.0-4.4) Urine Color Yellow (Yellow) Urine Appearance Clear (CLEAR) Urine pH 7 (5-7) Ur Specific Gravit y 1.005 (1.005-1.030) Urine Protein Neg (Negative) Urine Glucose (UA) Norm (Normal) Urine Ketones Negative (Negative) Urine Blood Neg (Negative) Urine Nitrate Negative (Negative) Urine Bilirubin Neg (Negative) Urine Urobilinogen Norm mg/dL mg/dL (Negative) Ur Leukocyte Alexandra ase Negative (Negative) Salicylates Urine Opiates Scre en Acetaminophen Ur Barbiturates Sc reen Ur Phencyclidine S crn Ur Amphetamines Sc reen U Benzodiazepines Scrn [place] 2.5 mmol/L H* mmo l/L (0.6-1.2) Urine Cocaine Scre en U Marijuana (THC) Screen Ethyl Alcohol Coronavirus 229E ( PCR) SARS-CoV-2 (PCR) SARS-CoV-2 Ag (Rap id) 07/12/21 07/12/21 07/12/21 18:02 18:02 18:21 WBC RBC Hgb Hct MCV MCH MCHC RDW Plt Count MPV Neut % (Auto) Lymph % (Auto) [place] % (Auto) Eos % (Auto) Baso % (Auto) Neut # (Auto) Lymph # (Auto) [place] # (Auto) Eos # (Auto) Baso # (Auto) Nucleated RBC % (a uto) Nucleated RBCs # Sodium Potassium Chloride Carbon Dioxide Anion Gap BUN Creatinine GFR Calculation Glucose POC Glucose 87 mg/dL mg/dL (70-110) Calculated Osmolal ity Lactic Acid Calcium Total Bilirubin AST ALT Alkaline Phosphata se Creatine Kinase Total Protein Albumin Globulin TSH Free T4 Free T3 Urine Color Urine Appearance Urine pH Ur Specific Gravit y Urine Protein Urine Glucose (UA) Urine Ketones Urine Blood Urine Nitrate Urine Bilirubin Urine Urobilinogen Ur Leukocyte Alexandra ase Salicylates < 0.3 mg/dL L mg/ dL (3-10) Urine Opiates Scre en Negative ng/mL ng /mL (Negative) Acetaminophen < 5.0 ug/mL L ug/ mL (10-30) Ur Barbiturates Sc reen Negative ng/mL ng /mL (Negative) Ur Phencyclidine S crn Negative ng/mL ng /mL (Negative) Ur Amphetamines Sc reen Negative ng/mL ng /mL (Negative) U Benzodiazepines Scrn Negative ng/mL ng /mL (Negative) [place] Urine Cocaine Scre en Negative ng/mL ng /mL (Negative) U Marijuana (THC) Screen Negative ng/mL ng /mL (Negative) Ethyl Alcohol < 10 mg/dL mg/dL (0-10) Coronavirus 229E ( PCR) SARS-CoV-2 (PCR) SARS-CoV-2 Ag (Rap id) 07/12/21 07/12/21 21:36 22:35 WBC RBC Hgb Hct MCV MCH MCHC RDW Plt Count MPV Neut % (Auto) Lymph % (Auto) [place] % (Auto) Eos % (Auto) Baso % (Auto) Neut # (Auto) Lymph # (Auto) [place] # (Auto) Eos # (Auto) Baso # (Auto) Nucleated RBC % (a uto) Nucleated RBCs # Sodium Potassium Chloride Carbon Dioxide Anion Gap BUN Creatinine GFR Calculation Glucose POC Glucose Calculated Osmolal ity Lactic Acid Calcium Total Bilirubin AST ALT Alkaline Phosphata se Creatine Kinase Total Protein Albumin Globulin TSH Free T4 Free T3 Urine Color Urine Appearance Urine pH Ur Specific Gravit y Urine Protein Urine Glucose (UA) Urine Ketones Urine Blood Urine Nitrate Urine Bilirubin Urine Urobilinogen Ur Leukocyte Alexandra ase Salicylates Urine Opiates Scre en Acetaminophen Ur Barbiturates Sc reen Ur Phencyclidine S crn Ur Amphetamines Sc reen U Benzodiazepines Scrn [place] Urine Cocaine Scre en U Marijuana (THC) Screen Ethyl Alcohol Coronavirus 229E ( PCR) Not detected (NOT DETECT) SARS-CoV-2 (PCR) Not detected (NOT DETECT) SARS-CoV-2 Ag (Rap id) Negative (Negative) Discharge Plan Discharge Patient Disposition: Admitted As Inpatient Admit Provider: Genna Bryant Clinical Impression: [place] toxicity, Acute renal insufficiency Condition: Stable Discharge Diet: Soft Mechanical Discharge Activity: Resume usual activity Coding Level of Care Code ED Silk Screen Etcher for g Fwd Exam Comprehensive
[2021-07-12 17:30] VITALS: BP 162/71; PULSE 74; RESP 18; TEMP 37.1; O2SAT 94; BMI 23.8
--- NOTE | 2021-07-12 17:39 | CTR_ITS ---
PROCEDURE INFORMATION: Exam: CT Head Without Contrast Exam date and time: 07/12/2021 5:39 PM Age: 86 years old Clinical indication: Altered mental status/memory loss; Patient HX: AMS / PT unable to follow instructions and kept moving even with padding and straps. Best images possible TECHNIQUE: Imaging protocol: Computed tomography of the head without contrast. Total images: 207 Radiation optimization: All CT scans at this facility use at least one of these dose optimization techniques: automated exposure control; mA and/or kV adjustment per patient size (includes targeted exams where dose is matched to clinical indication); or iterative reconstruction. COMPARISON: CT head wo con* [id number] 07/31/2020 7:34 PM RADIATION DOSE METRICS: Total DLP (mGy-cm): 1741.38 FINDINGS: Brain: No evidence of active or acute intracranial pathologic process, hemorrhage, or trauma. No cerebral edema. 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 No mass effect. No midline shift. No hyperdense MCA or insular ribbon sign. Atrophic changes not inconsistent with the patient's advanced chronological age. Cerebral ventricles: No ventriculomegaly. Paranasal sinuses: Visualized sinuses are unremarkable. No fluid levels. Mastoid air cells: Visualized mastoid air cells are well aerated. Bones/joints: Unremarkable. No acute fracture. Soft tissues: Unremarkable. Other findings: Motion artifact. CT/CT head wo con* [id number] IMPRESSION: No evidence of active or acute intracranial pathologic process, hemorrhage, or trauma.
--- NOTE | 2021-07-12 17:39 | XRR_ITS ---
PROCEDURE INFORMATION: Exam: XR Chest Exam date and time: 07/12/2021 5:39 PM Age: 86 years old Clinical indication: Other: AMS; Prior surgery; Surgery type: Pacemaker TECHNIQUE: Imaging protocol: XR of the chest. Views: 1 view. Total images: 1 COMPARISON: CT abdomen pelvis w con* [id number] 09/12/2018 4:29 PM FINDINGS: Tubes, catheters and devices: Pacemaker. Lungs: No visible active interstitial or alveolar airspace disease. Pleural spaces: Unremarkable. No pleural effusion. No pneumothorax. Heart/Mediastinum: Cardiac structures in configuration with arteriosclerosis. Bones/joints: Unremarkable. XR/XR chest 1V portable [id number] IMPRESSION: Nonacute.
--- NOTE | 2021-07-12 17:40 | ECG_ITS ---
[facility] Test Date: 2021-07-12 Pat Name: Rebecca Longoria Department: Room: Gender: Female Ordnance Technician: : 1935 Requested By: Christopher Singleton Order Number: [id number] Owens MD: Tiesha Estrada M.D. Measurements Intervals [place] Rate: 70 P: -73 CA: 250 QRS: -24 QRSD: 125 T: 46 QT: 411 QTc: 446 Interpretive Statements ELECTRONIC ATRIAL PACEMAKER POSSIBLE RIGHT VENTRICULAR CONDUCTION DELAY [RSR (QR) IN V1/V2] LEFT VENTRICULAR HYPERTROPHY AND ST-T CHANGE [VOLTAGE CRITERIA PLUS ST/T ABNORMALITY] POSSIBLE SEPTAL MYOCARDIAL INFARCTION , PROBABLY OLD [30 ms Q WAVE IN V1/V2] No previous ECG available for comparison Electronically Signed On 07-14-2021 5:05:58 OSTRICH FARMER by Tiesha Estrada M.D. [id number] [email or web address]
[2021-07-12 18:06] VITALS: BP 143/67; PULSE 71; RESP 14; O2SAT 98
[2021-07-12 18:11] LABS: Basophils % 0.3 %; Eosinophils # 0.1 10^3/uL (0.0-0.8); Eosinophils % 1.3 %; Hematocrit 44.5 % (37.0-47.0); Lymphocytes # 1.5 10^3/uL (0.8-4.8); Lymphocytes % 14.6 %; Mean Corpuscular HGB Conc 33.7 g/dL (30.0-36.0); Mean Corpuscular Hemoglobin 30.9 pg (28.0-34.0); Mean Corpuscular Volume 91.8 fl (81-99); Mean Platelet Volume 11.6 fL (7.4-10.4); Monocytes # 0.7 10^3/uL (0.2-0.9); Monocytes % 7.4 %; Neutrophils # 7.57 10^3/uL (1.8-7.7); Neutrophils % 76.1 %; Nucleated Red Blood Cells % 0 %; Platelet Count 202 10^3/cmm (130-400); Red Blood Count 4.85 10^6/uL (4.1-5.3); Red Cell Distribution Width 12.9 % (12.1-15.1)
[2021-07-12 18:24] LABS: Glucose Point of Care 87 mg/dL (70-110)
[2021-07-12] MEDS: sodium chloride 0.9% 1,000 ML 999 ML IV (18:28)
[2021-07-12 18:32] LABS: Add Urine Microscopic? NO; Charge for UA Resulting for Rev
[2021-07-12 18:34] LABS: Lactic Sepsis W/Reflex 0.9 mmol/L (0.5-2.2)
[2021-07-12 18:41] LABS: Bilirubin Urine Neg (Negative); Blood Urine Neg (Negative); Glucose Urine UA Norm (Normal); Ketones Urine Negative (Negative); Leukocyte Esterase Urine Negative (Negative); Nitrate Urine Negative (Negative); Protein Urine Neg (Negative); Specific Gravity, Urine 1.005 (1.005-1.030); Urine Appearance Clear (CLEAR); Urine Color Yellow (Yellow); Urobilinogen Urine Norm (Negative); pH Urine 7 (5-7)
[2021-07-12 18:48] LABS: Lithium 2.5 mmol/L (0.6-1.2)
[2021-07-12 19:21] LABS: Alanine Aminotransferase 15 U/L (0-33); Albumin Level 4.3 g/dL (3.5-5.2); Alkaline Phosphatase 81 IU/L (35-105); Anion Gap 18.3 (5-19); Aspartate Amino Transferase 22 U/L (0-32); Blood Urea Nitrogen 22 mg/dL (8-23); Calcium 9.6 mg/dL (8.5-10.5); Carbon Dioxide 17 mmol/L (22-29); Chloride 101 mmol/L (98-107); Globulin 2.2 g/dL (1.3-4.6); Glucose 88 mg/dL (65-115); Osmolality Calculated 277 mOsm/kg (285-295); Potassium 4.3 mmol/L (3.5-5.1); Sodium 132 mmol/L (136-145); Thyroid Stimulating Hormone 0.21 uIU/mL (0.27-4.20); Total Bilirubin 0.4 mg/dL (0.15-1.2); Total Protein 6.5 g/dL (6.6-8.7)
--- NOTE | 2021-07-12 19:25 | CTR_ITS ---
PROCEDURE INFORMATION: Exam: CT Abdomen And Pelvis With Contrast Exam date and time: 07/12/2021 7:25 PM Age: 86 years old Clinical indication: Abdominal pain; Generalized; TECHNIQUE: Imaging protocol: Computed tomography of the abdomen and pelvis with contrast. Radiation optimization: All CT scans at this facility use at least one of these dose optimization techniques: automated exposure control; mA and/or kV adjustment per patient size (includes targeted exams where dose is matched to clinical indication); or iterative reconstruction. Contrast material: VISI; Contrast volume: 95 ml; Contrast route: INTRAVENOUS (IV); COMPARISON: CT abdomen pelvis w con* [id number] 09/12/2018 4:29 PM RADIATION DOSE METRICS: Total DLP (mGy-cm): 1091.08 FINDINGS: Tubes, catheters and devices: Partially visualized pacemaker leads. Liver: There are sub cm cysts with benign features in the liver. Follow-up is not necessary. Gallbladder and bile ducts: Normal. No calcified stones. No ductal dilation. Pancreas: Normal. No ductal dilation. Spleen: Normal. No splenomegaly. Adrenal glands: Normal. No mass. Kidneys and ureters: Multiple renal with benign features the larger of which arises from the anterior aspect of the left kidney measuring 2.6 cm. Follow-up is not necessary. There is an extrarenal pelvis on the right. Stomach and bowel: Moderate stool burden. There is diverticulosis of the colon without evidence of diverticulitis. Appendix: A normal appendix is identified. Intraperitoneal space: Unremarkable. No free air. No significant fluid collection. Vasculature: Calcified plaque is present within multiple vascular structures. Infrarenal abdominal aorta is ectatic measuring 2.1 cm in the transverse dimension. Lymph nodes: Unremarkable. No enlarged lymph nodes. Urinary bladder: Unremarkable as visualized. Reproductive: The uterus is not visualized, consistent with hysterectomy. Bones/joints: There are degenerative changes in the spine. [id number] lower thoracic/upper lumbar dextroscoliosis. Soft tissues: Unremarkable. CT/CT abdomen pelvis w con* [id number] IMPRESSION: No acute findings.Non acute findings as described above.
[2021-07-12 19:56] VITALS: RESP 16
[2021-07-12] MEDS: iodixanol 320 mg/mL 100mL Btl IV (19:56)
[2021-07-12] MEDS: ondansetron 2 mg/ML SDV 2 mL 4 MG IVP (19:56)
[2021-07-12] MEDS: morphine 4 mg/mL SDV 1 mL 2 MG IVP (19:56)
--- NOTE | 2021-07-12 20:45 | PM.HP ---
Providers/Chief Complaint Admitting Physician: Genna Bryant MD Primary Care Provider: Johnnie Tam DO Chief Complaint: AMS History of Present Illness Rebecca Longoria is a 86 year old female with a history of Lewy body dementia who presented to the emergency room with altered mental status. Her in October of this year. She has declined since then. History is obtained from her sister and her niece. They think that in dealing with her grief after he that she quit taking a lot of her medications. The last time she saw Dr. Kennedy in October was when her was in the hospital prior to his . There is indication that she had not been taking her medications as prescribed at that time because of being worried about him. She had wanted Dr. Kennedy to prescribe her a sleeping pill. Several had been tried without any result. Dr. Kennedy iterated that she was not going to prescribe a sleeping pill and patient has not followed with her since then. She was previously stabilized, in terms of her dementia, on Exelon patches 4.6 mg daily. The sister is fairly certain she has not taken the Exelon patch since shortly after that appointment. Looks like the last time prescription appears electronically is in December of 2020. Patient lived alone and had progressively increasing memory issues and confusion over time. She had also had weight loss and was not interacting with her sister as much. She had an apartment in [facility] where she moved to and was staying there. Around a month ago the degree of her confusion worsened possibly acutely. Was taken to [facility] in [place]. She was evaluated in the emergency room and subsequently sent to a nursing facility in [facility]. Unclear if was a dementia unit or other type of facility. She was not actually admitted to the hospital apart from the emergency room according to the sister. From what I gather her mental status and conditioning has further declined in the interim. Patient's son went to visit her in [place] facility she was at about a week ago and she was subsequently taken out of that facility and placed at [facility] living locally on this past . On Tuesday she was seen at the urgent care clinic for possible urinary tract infection. Complaints at that time were altered mental status, dysuria, left-sided flank pain. Urinalysis had leukocyte esterase. She was diagnosed clinically as UTI/Pyelo. Received a dose of Rocephin and was started on some Bactrim of which she has had 1 dose. Today brought in to the emergency room for evaluation due to progressively worsening symptoms even further, today weak and not able to get around as good, not as responsive. There is no report of any fever, vomiting, diarrhea known. In the ED she looks like she was having some abdominal pain. Repeat urinalysis here was normal. She was found to have low sodium, low chloride and slight bump in creatinine. She takes lithium chronically and has for many many years. Unknown if any recent dose changes. Honeygo level was found to be toxic at 2.5. TSH was also found to be low. She does have a history of hypothyroidism and is on chronic levothyroxine. Again unknown if recent dosage changes. She is being admitted for further treatment and evaluation. Review of Systems General: Reports: ROS unobtainable due to medical condition and ROS unobtainable due to mental status Medications/Allergies Home Medications Medication Instructions Recorded Confirmed Last Taken Type folic acid 1 mg tablet 1 mg PO DAILY@79907/16/19 07/12/21 07/12/21 History hydroxychloroquine 200 mg tablet 200 mg PO BID@799,199907/16/19 07/12/21 07/12/21 History levothyroxine 50 mcg capsule 50 mcg PO DAILY@79907/16/19 07/12/21 07/12/21 History lithium carbonate 300 mg capsule 600 mg PO BID@01/08/20 07/12/21 07/12/21 History latanoprost 1 drp OPHTHALMIC (EYE) BEDTIME@199907/31/20 07/12/21 07/11/21 History Bactrim DS 1 tab PO BID@07/12/21 07/12/21 07/12/21 History docusate sodium 100 mg PO DAILY PRN 07/12/21 07/12/21 Unknown History escitalopram oxalate [Lexapro] 5 mg PO DAILY 07/12/21 07/12/21 07/12/21 History melatonin 10 mg PO BEDTIME@199907/12/21 07/12/21 07/11/21 History metoprolol tartrate 150 mg PO BID@07/12/21 07/12/21 07/12/21 History ondansetron HCl [Zofran] 4 mg PO Q6H PRN 07/12/21 07/12/21 Unknown History Allergies Allergy/AdvReac Type Severity Reaction Status Date / Time No Known Allergies Allergy Verified 07/12/21 17:30 PFSH Acute PFSH: Medical History (Updated 07/13/21 @ 08:42 by Genna Bryant MD) Depression Glaucoma Hypertension Hypothyroidism Lewy body dementia Long-term use of hydroxychloroquine for treatment of unclear diagnosis 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 Surgical History (Updated 07/12/21 @ 20:50 by Genna Bryant MD) History of bilateral knee arthroplasty S/P cardiac pacemaker procedure S/P carpal tunnel release S/P eye surgery S/P foot surgery S/P hysterectomy Family History Other CAD (coronary artery disease) Cancer Denies family history of Diabetes Hypertension Stroke Social History (Updated 07/12/21 @ 21:18 by Genna Bryant MD) Smoking and tobacco status: never smoked Alcohol intake: never Substance/Drug Use: never Marital status: / Vitals/I&O/Wt Last Vital Signs Temp 98.8 F 07/12/21 17:30 Pulse 71 07/12/21 18:06 Resp 16 07/12/21 19:56 BP 143/67 07/12/21 18:06 Pulse Ox 98 07/12/21 18:06 Weight last 48 hrs Weight 67.132 kg Physical Exam Narrative: EXAM NARRATIVE: Constitutional: Asleep, not arousing mumbles quite a bit, wants to try to get up to the bedside commode. She speaks in very soft tones, will follow instructions if it has made clear that she needs to but only briefly, looks both acutely and chronically ill HEENT: Bitemporal wasting is noted, pupils are sluggish but equally reactive, extraocular movements are intact though it takes repeated attempts, horizontal gaze nystagmus present, nasopharynx is clear, lips are very dry, limited visualization of the tongue and anterior oral mucosa is also dry, patient is keeping her jaw shut, opens only a small amount with talking, pulls away and will not let me examine her mouth further Neck: Patient keeps her head and neck somewhat rigid every time I touch her. Is not appear rigid when she is trying to position herself from the bed to the bedside commode. Right thyroid lobe is more prominent than the left but not grossly enlarged otherwise. On the left side of the neck there is a 5 to 6 mm diameter soft, somewhat rubbery feeling soft tissue in line with the anterior cervical chain Respiratory: Clear to auscultation bilaterally, mildly tachypneic Cardiovascular: Regular rate and rhythm Abdomen: Soft, mildly tender throughout but inconsistent, nondistended, positive bowel sounds : Normal external genitalia Extremities: No pitting edema, no calf tenderness Skin: Dry, flaking in some places, pale Neuro: Face is symmetric, speech is mumbled and soft, handgrip strength is equal bilaterally, while getting up with assistance from supine position to the side of the bed patient moved in very small increments with every position change. Some mild truncal ataxia noted, she is somewhat plopped down to the bedside commode rather than easing herself into it and had to use her arms to pull up out of it. She has some muscle wasting in her extremities as well. No myoclonic-like movements noted, appears oriented to person but not to place or situation, more task or need oriented in my brief interactions with her Psych: Flat affect Data : 07/12/21 18:02 07/13/21 04:55 Other Labs: Radiology Impressions Chest X-Ray 07/12/21 17:39 IMPRESSION: Nonacute. Head CT 07/12/21 17:39 IMPRESSION: No evidence of active or acute intracranial pathologic process, hemorrhage, or trauma. Abdomen/Pelvis CT 07/12/21 19:25 IMPRESSION: No acute findings.Non acute findings as described above. Laboratory Results WBC 10.0 10^3/uL (4.0-10.0) 07/12/21 18: RBC 4.85 10^6/uL (4.1-5.3) 07/12/21 18: Hgb 15.0 g/dL (11.5-15.3) 07/12/21 18: Hct 44.5 % (37.0-47.0) 07/12/21 18: MCV 91.8 fl (81-99) 07/12/21 18: MCH 30.9 pg (28.0-34.0) 07/12/21 18:02 MCHC 33.7 g/dL (30.0-36.0) 07/12/21 18:02 RDW 12.9 % (12.1-15.1) 07/12/21 18:02 Plt Count 202 10^3/cmm (130-400) 07/12/21 18:02 MPV 11.6 fL (7.4-10.4) H 07/12/21 18:02 Neut % (Auto) 76.1 % 07/12/21 18:02 Lymph % (Auto) 14.6 % 07/12/21 18:02 Posey % (Auto) 7.4 % 07/12/21 18:02 Eos % (Auto) 1.3 % 07/12/21 18: Baso % (Auto) 0.3 % 07/12/21 18:02 Neut # (Auto) 7.57 10^3/uL (1.8-7.7) 07/12/21 18:02 Lymph # (Auto) 1.5 10^3/uL (0.8-4.8) 07/12/21 18:02 Posey # (Auto) 0.7 10^3/uL (0.2-0.9) 07/12/21 18:02 Eos # (Auto) 0.1 10^3/uL (0.0-0.8) 07/12/21 18:02 Baso # (Auto) 0.0 10^3/uL (0.0-0.1) 07/12/21 18: Nucleated RBC % (auto) 0 % 07/12/21 18: Nucleated RBCs # 0.0 /100WBC 07/12/21 18:02 Sodium 132 mmol/L (136-145) L 07/12/21 18:02 Potassium 4.3 mmol/L (3.5-5.1) 07/12/21 18:02 Chloride 101 mmol/L (98-107) 07/12/21 18:02 Carbon Dioxide 17 mmol/L (22-29) L 07/12/21 18:02 Anion Gap 18.3 (5-19) 07/12/21 18:02 BUN 22 mg/dL (8-23) 07/12/21 18:02 Creatinine 1.2 mg/dL (0.5-0.9) H 07/12/21 18:02 GFR Calculation Not Reportable 07/12/21 18: Glucose 88 mg/dL (65-115) 07/12/21 18: POC Glucose 87 mg/dL (70-110) 07/12/21 18:21 Calculated Osmolality 277 mOsm/kg (285-295) L 07/12/21 18: Lactic Acid 0.9 mmol/L (0.5-2.2) 07/12/21 18: Calcium 9.6 mg/dL (8.5-10.5) 07/12/21 18: Total Bilirubin 0.4 mg/dL (0.15-1.2) 07/12/21 18: AST 22 U/L (0-32) 07/12/21 18: ALT 15 U/L (0-33) 07/12/21 18: Alkaline Phosphatase 81 IU/L (35-105) 07/12/21 18: Total Protein 6.5 g/dL (6.6-8.7) L 07/12/21 18: Albumin 4.3 g/dL (3.5-5.2) 07/12/21 18: Globulin 2.2 g/dL (1.3-4.6) 07/12/21 18: TSH 0.21 uIU/mL (0.27-4.20) L 07/12/21 18:02 Urine Color Yellow (Yellow) 07/12/21 18: Urine Appearance Clear (CLEAR) 07/12/21 18: Urine pH 7 (5-7) 07/12/21 18: Ur Specific [place] 1.005 (1.005-1.030) 07/12/21 18: Urine Protein Neg (Negative) 07/12/21 18: Urine Glucose (UA) Norm (Normal) 07/12/21 18: Urine Ketones Negative (Negative) 07/12/21 18: Urine Blood Neg (Negative) 07/12/21 18: Urine Nitrate Negative (Negative) 07/12/21 18: Urine Bilirubin Neg (Negative) 07/12/21 18: Urine Urobilinogen Norm mg/dL (Negative) 07/12/21 18: Ur Leukocyte Esterase Negative (Negative) 07/12/21 18:02 Honeygo 2.5 mmol/L (0.6-1.2) H* 07/12/21 18:02 A&P Assessment and plan (1) Honeygo toxicity: Accidental from the sound of it and it may also be in part due to her coming off of her medications and subsequently being restarted on them at some point or even choosing to take them again. With advancing age I would expect her to need decreasing doses as it is really cleared. Does not have usual GI symptoms associated with acute lithium toxicity beyond complaining of abdominal discomfort. Appears more of a subacute or chronic toxicity with primarily neurological sequalea. Status: Acute Qualifiers: Encounter type: initial encounter Injury intent: accidental or unintentional Qualified Code(s): T56.891A - Toxic effect of other metals, accidental (unintentional), initial encounter (2) Hyperthyroidism: Most likely this is secondary to lithium toxicity but it could also be playing in the presentation both presently as well as in the past 6 to 8 months as her condition has declined. Difficult to know based on reviewing labs at 1 point in time. Also would be impacted by utilization or lack of utilization of her medications.. Status: Acute (3) Acute renal insufficiency: Compared to previously available comparative labs from right at a year ago. May be natural progression in somebody with advanced age versus acute process that exacerbated lithium toxicity in particular. Can also be secondary to lithium toxicity. Status: Acute (4) Lewy body dementia: Previously had had good control on Exelon patch but looks like she quit taking it in December of last year Status: Chronic Qualifiers: Dementia behavioral disturbance: with behavioral disturbance Qualified Code(s): G31.83 - Dementia with Lewy bodies; F02.81 - Dementia in other diseases classified elsewhere with behavioral disturbance (5) Hypertension: Chronically on metoprolol Status: Chronic Qualifiers: Hypertension type: primary hypertension Qualified Code(s): I10 - Essential (primary) hypertension (6) Pacemaker: Placed secondary to bradycardia some years ago Status: Chronic (7) Long-term use of hydroxychloroquine: Unclear diagnosis for which this was prescribed. Clinically patient does not appear to have rheumatoid arthritis nor do I see clear evidence of SLE which is some of the more common diagnoses for which hydroxychloroquine is prescribed. I am wondering if it is being utilized as an alternative anti-inflammatory agent that is a bit more compatible with lithium for osteoarthritis. I do have documentation available in the medical record that she was taking it before the COVID pandemic started. 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 (9) Depression: I wonder if she does not have bipolar depression and that is the reason that she is on the lithium Status: Chronic Qualifiers: Depression Type: other depression Qualified Code(s): F32.89 - Other specified depressive episodes (10) Glaucoma: Utilizes latanoprost eyedrops Status: Chronic Qualifiers: Glaucoma type: unspecified Additional A&P Information Status post Rocephin IM on 07/11/2021 for presumptive UTI, based on symptoms and leukocyte esterase on urinalysis, also started on Bactrim same date; repeat urinalysis here today is unremarkable beyond showing a very concentrated urine by comparison. Recent ED visit in [place] with subsequent SNF, for increasing memory issues and confusion that may have been secondary to lithium toxicity or progression of Lewy body dementia Grieving of her who in October 2020 Inpatient admission IV fluids Hold lithium Serial labs to include renal function and lithium level From what I gather patient has been maintained on lithium for many many years. With such a narrow therapeutic window and advancing age and dementia it may be reasonable to not restart lithium or at the very least considerably decrease the dose to limit risk of toxicity in the future Hold levothyroxine Check free T3 and free T4 Will need repeat check of thyroid function studies upon follow-up and estimates to medications accordingly Monitor urine output closely Hold further Bactrim, discussed with patient's sister and niece, including upon discharge due to risk of worsening renal insufficiency and worsening of lithium toxicity Continue home metoprolol but at half usual dose Telemetry monitoring for arrhythmias Holding hydroxychloroquine presently Request records from asked to see if we can clarify why she is on it Continue latanoprost to both eyes Continue Lexapro at usual home dose Supportive care otherwise Try to avoid medications that may increase lithium levels Depending on clinical course, [facility]; currently not in a state to be able to live in an assisted living facility but hopefully she will improve with correction of the lithium toxicity. She very well may benefit from geriatric psychiatry involvement although I am wondering if that is not what had been arranged as [facility] ER. Will request records from at [facility] visit [facility] for DVT prophylaxis Presently full code. Patient's son has power of state's attorney for decision-making authority. Patient's sister and niece are here locally. They are not certain if Ms. Longoria has expressed specific wishes regarding end-of-life care. They said that her son would be able to provide that information. Attestations Medical Necessity Statement*: Anticipated stay greater than two midnights inpatient presenting with alteration in mental status found to have lithium toxicity, acute renal insufficiency and other issues as described. Presently receiving IV fluids, serial labs and close monitoring. At risk of significant behavioral disturbance, arrhythmia, worsening in renal function and other clinical changes necessitating monitoring in the inpatient stay. Plans are as indicated. Coding Level of Care Code Acute [employer] for [employer] Diagnoses Honeygo toxicity T56.891A Encounter type: initial encounter Injury intent: accidental or unintentional Hyperthyroidism E05.90 Acute renal insufficiency N28.9 Lewy body dementia G31.83; F02.81 Dementia behavioral disturbance: with behavioral disturbance Hypertension I10 Hypertension type: primary hypertension Pacemaker Z95.0 Long-term use of hydroxychloroquine Z79.899 Parkinsonism G21.8 Parkinsonism type: secondary Parkinsonism Secondary Parkinsonism type: other secondary Depression F32.89 Depression Type: other depression Glaucoma H40.9 Glaucoma type: unspecified
[2021-07-12] MEDS: LORazepam 2 mg/mL INJ 1 mL 0.5 MG IVP (20:56)
[2021-07-12 22:12] LABS: SARS Covid-2 Antigen Negative (Negative)
[2021-07-12 22:29] LABS: Creatine Phosphokinase 73 U/L (26-192)
[2021-07-12 22:36] LABS: Free T4 Free Thyroxine 2.18 ng/dL (0.82-1.77); T3 Free 2.7 PG/ML (2.0-4.4)
[2021-07-13] VITALS: BP 165/82; PULSE 80; RESP 17; TEMP 36.5; O2SAT 96
[2021-07-13] MEDS: metoprolol tartrate 50 mg Tablet 75 MG PO ×3 (00:03→20:55)
[2021-07-13] MEDS: enoxaparin 30 mg/0.3 mL Syringe SUBCUT ×2 (00:03→23:14)
[2021-07-13] MEDS: sodium chloride 0.9% 1,000 ML 100 ML IV ×2 (00:03→19:51)
[2021-07-13 00:38] LABS: Adenovirus Not Detected (NOT DETECT); Chlamydia Pneumoniae Not Detected (NOT DETECT); Coronavirus 229E,HKU1,NL63,OC4 Not Detected (NOT DETECT); Human Metapneumovirus Not Detected (NOT DETECT); Human Rhinovirus/Enterovirus Not Detected (NOT DETECT); Influenza A Not Detected (NOT DETECT); Influenza A H1 Not Detected (NOT DETECT); Influenza A H1-2009 Not Detected (NOT DETECT); Influenza A H3 Not Detected (NOT DETECT); Influenza B Not Detected (NOT DETECT); Mycoplasma Pneumoniae Not Detected (NOT DETECT); Parainfluenza Virus Type 1 Not Detected (NOT DETECT); Parainfluenza Virus Type 2 Not Detected (NOT DETECT); Parainfluenza Virus Type 3 Not Detected (NOT DETECT); Parainfluenza Virus Type 4 Not Detected (NOT DETECT); Respiratory Syncytial Virus A Not Detected (NOT DETECT); Respiratory Syncytial Virus B Not Detected (NOT DETECT); SARS-COV-2 Not Detected (NOT DETECT)
[2021-07-13 04:00] VITALS: BP 149/83; PULSE 76; RESP 17; TEMP 36.6; O2SAT 96
[2021-07-13 06:32] LABS: Anion Gap 13.8 (5-19); Blood Urea Nitrogen 18 mg/dL (8-23); Calcium 10.1 mg/dL (8.5-10.5); Carbon Dioxide 20 mmol/L (22-29); Chloride 111 mmol/L (98-107); Glucose 85 mg/dL (65-115); Magnesium 2.3 mg/dL (1.7-2.3); Osmolality Calculated 293 mOsm/kg (285-295); Phosphorus 2.9 mg/dL (2.5-4.5); Potassium 3.8 mmol/L (3.5-5.1); Sodium 141 mmol/L (136-145)
[2021-07-13 06:42] LABS: Lithium 1.8 mmol/L (0.6-1.2)
[2021-07-13 08:00] VITALS: BP 138/77; PULSE 71; RESP 20; TEMP 36.9; O2SAT 96
[2021-07-13] MEDS: folic acid 1 mg Tablet PO (09:17)
[2021-07-13] MEDS: escitalopram 10 mg Tablet 5 MG PO (09:18)
--- NOTE | 2021-07-13 09:41 | PC.CHAP ---
Pastoral Care Encounter/Spiritual Assessment Type of Contact [] Declined business law teacher visit [] Patient/Family/Request visit [] Outpatient visit [] Follow-up visit [] Physician referral [] Code/Alert [] Routine visit [] Staff referral [] Actively dying [] Patient sleeping [] Family support [] [] Out of room [] Palliative care [] [] Receiving care in room [] Pre-surgical visit [] Trauma [] Long length of stay [] ICU visit [] Other: Relational/Emotional Strength [] Patient feels connected with others/family/visitors/staff [] Distress [] Loneliness/isolation [] Abandonment Spirituality of Patient [] Person of Luda [] Attends Orthodox of their Luda [] Believes in Prayer [] Reads Bible or Rastafari materials [] There are Spiritual issues to be addressed Broom Worker Interventions [x] Prayer [x] Active listening [x] Non-anxious presence [] Spiritual/emotional support [] Crisis/trauma care [] Spiritual counseling [] Bereavement support [] Provided bereavement packet [] Provided Bible/devotional materials [] Provided toy/stuffed animal, coloring book to patient or family member [] Provided Communion [] Anointing/Loyal [] Salvation [x] Completed spiritual assessment [] Other: Impact on Illness or Injury [] Angry [] Fearful [] Anxious [] Often cries [] Exhaustion [] Unable to work [] Unable to attend nondenominational [] Unable to walk/stand [] Unable to read [] Unable to drive [] Unable to eat/drink [] Unable to sleep [] Unable to be with family [] Patient intubated [] Other: Summary Time spent with patient 10 min x
--- NOTE | 2021-07-13 10:01 | ECG_ITS ---
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 Measurements Intervals [place]ow Rate: 69 P: 171 WA: 249 QRS: -37 QRSD: 122 T: -19 QT: 415 QTc: 447 Interpretive Statements ELECTRONIC ATRIAL PACEMAKER LEFT AXIS DEVIATION [QRS AXIS < -30] POSSIBLE RIGHT VENTRICULAR CONDUCTION DELAY [RSR (QR) IN V1/V2] LEFT VENTRICULAR HYPERTROPHY AND ST-T CHANGE [VOLTAGE CRITERIA PLUS ST/T ABNORMALITY] POSSIBLE SEPTAL MYOCARDIAL INFARCTION , PROBABLY OLD [30 ms Q WAVE IN V1/V2] Compared to ECG 07/12/2021 18:18:44 Left-axis deviation now present ST (T wave) deviation still present Myocardial infarct finding still present Electronically Signed On 07-14-2021 5:03:45 BRIGHT CUTTER by Tiesha Estrada M.D. [email or web address]
[2021-07-13 12:00] VITALS: BP 150/78; PULSE 70; RESP 18; TEMP 36.9; O2SAT 97
[2021-07-13 13:05] LABS: Acetaminophen < 5.0 ug/mL (10-30); Alcohol Level < 10 mg/dL (0-10); Salicylate < 0.3 mg/dL (3-10)
--- NOTE | 2021-07-13 14:23 | CT_ITS ---
WS: [id number] CT angio headneck* [id number] REASON FOR EXAM: ams, post circulation cva TECHNIQUE: Coronal and sagittal 2-D and MIP reformations. IV CONTRAST ADMINISTERED: 95 mL of Omnipaque 350. TOTAL EXAM DLP: 4085.[address] scans at [facility] use at least one of these dose optimization techniques: automat ed exposure control; mA and/or kV adjustment per patient size (includes targeted exams where dose is matched to clinical indication); or iterative reconstruction. FINDINGS: ORIGINS OF GREAT VESSELS HAND CERVICAL REGION. Patient motion artifact and the pacemaker render the aortic arch and the cervical portion of this exa mination nondiagnostic. As best as can be ascertained the common carotid, internal carotids, and vert ebral arteries are not occluded between the aortic arch and the base of the skull. INTRACRANIAL CIRCULATION. The siphon and terminus portions of the internal carotid arteries are patent and without significant stenosis or thrombus. The anterior and middle cerebral arterial circulations demonstrate no significant stenosis or thrombu s. The basilar artery is patent and without significant stenosis or thrombus. The superior cerebellar and posterior cerebral arterial circulations are patent and without significa nt stenosis or thrombus. CT/CT angio headneck* [id number] IMPRESSION: Limited examination as above with no arterial obstruction identified.
[2021-07-13 14:45] LABS: Rapid Plasma Reagin Syphilis Nonreactive (Nonreactive)
[2021-07-13 15:08] LABS: Folate Level > 20.0 ng/mL (4.8-37.3)
[2021-07-13 15:15] LABS: Vitamin B12 306 pg/mL (232-1245)
[2021-07-13] MEDS: iohexol 350 mg/mL 100 mL Btl IV (15:23)
[2021-07-13 15:57] VITALS: BP 157/76; PULSE 71; RESP 18; TEMP 36.8; O2SAT 94
--- NOTE | 2021-07-13 17:22 | P.PN_ITS ---
Subjective Subjective: Interval history: Sister at bedside. Admitted overnight. On examination lying comfortably in bed. Start patient is mumbling but when spoken to directly is able to answer completely. She states her name, place. States she wants to pass urine. Denies any nausea, vomiting, headache. In distress because of needing to pass urine. Vitals/I&O/Wt Last Vital Signs Temp 98.3 F 07/13/21 15:57 Pulse 71 07/13/21 15:57 Resp 18 07/13/21 15:57 BP 157/76 07/13/21 15:57 Pulse Ox 94 07/13/21 15:57 07/13/21 07/13/21 07/13/21 06:59 14:59 22:59 Intake Total 120 / 120 Output Total 350 / 350 850 / 850 Balance -350 / 650 120 / 120 -850 / -730 Weight last 48 hrs Weight 67.132 kg Physical Exam Narrative: EXAM NARRATIVE: General: In distress as patient wants to pass urine, on entering the room patient is mumbling but speaks currently when spoken to directly, alert to self and place. Fidgety. HEENT: PERRLA, pupils bilaterally equal and reactive erythematous tongue. Chest: Normal vesicular breath sounds, no added sounds, equal good air entry bilaterally CVS: S1-S2 regular, no murmurs, no tachycardia, no gallops, no rubs Abdomen: Soft, nontender, no organomegaly, bowel sounds present Neuro: No focal deficits, no facial deformity, AO x3, power 5/5 in all limbs Data : 07/12/21 18:02 07/13/21 04:55 Micro: Microbiology 07/13/21 10:50 Blood Culture - Preliminary Blood SPECIMEN COLLECTED 07/13/21 10:53 Blood Culture - Preliminary Blood SPECIMEN COLLECTED A&P Assessment and plan (1) Delirium: Most likely worsening of underlying Lewy body dementia along with a possible history of bipolar depression. Patient takes lithium as an outpatient. Less likely infectious cause as patient has had ongoing delirium worsening for last 6 to 7 months since demise of her . Less likely secondary to mildly elevated lithium levels. Requested MRI but could not be done because of history of pacemaker implantation. Check CTA head and neck. Check vitamin B12, folate, RPR, add urine drug screen, salicylate and Tylenol level to labs from yesterday. Repeat lithium level tomorrow morning. Sitter. Frequent reorientation. Day catheterization. Status: Acute (2) Lewy body dementia: Previously had had good control on Exelon patch but looks like she quit taking it in December of last year. Seems to be the driving reason Status: Chronic Qualifiers: Dementia behavioral disturbance: with behavioral disturbance Qualified Code(s): G31.83 - Dementia with Lewy bodies; F02.81 - Dementia in other diseases classified elsewhere with behavioral disturbance (3) [place] toxicity: Not sure of lithium toxicity as not sure how long before the lithium was tested that patient take her medicine. Repeat lithium 1.8 today. Repeat lithium every morning. Start patient on low-dose 300 mg twice daily to avoid withdrawal. Most likely patient takes lithium for bipolar disorder/bipolar depression. Status: Acute Qualifiers: Encounter type: initial encounter Injury intent: accidental or unintentional Qualified Code(s): T56.891A - Toxic effect of other metals, accidental (unintentional), initial encounter (4) Hyperthyroidism: Most likely secondary to high lithium levels. TSH low, free T4 mildly elevated troponin T3 is normal. Will restart levothyroxine at 50 mcg which is her home dose. Does not have any tachycardia, fever, constipation. Status: Acute (5) Acute renal insufficiency: Resolved. Most likely secondary to dehydration admission. Continue with IV fluids as above. Monitor BMP daily. Status: Acute (6) Hypertension: Goal blood pressure less than 140/90 mmHg. On metoprolol goal blood pressure less than 140/90 mmHg. Status: Chronic Qualifiers: Hypertension type: primary hypertension Qualified Code(s): I10 - [place] tial (primary) hypertension (7) Depression: Status: Chronic Qualifiers: Depression Type: other depression Qualified Code(s): F32.89 - Other specified depressive episodes (8) Long-term use of hydroxychloroquine: Unclear diagnosis for which this was prescribed. Clinically patient does not appear to have rheumatoid arthritis nor do I see clear evidence of SLE which is some of the more common diagnoses for which hydroxychloroquine is prescribed. I am wondering if it is being utilized as an alternative anti-inflammatory agent that is a bit more compatible with lithium for osteoarthritis. I do have documentation available in the medical record that she was taking it before the COVID pandemic started. 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 Full code for now. Will discussion detail with son when possible. Tried calling but no answer. Discussed with sister at bedside. She wants uncle to make decisions. Full liquid diet. Protonix OPD prophylaxis. Lovenox for DVT prophylaxis. Attestations Medical Necessity Statement*: Requires further hospitalization for management and evaluation of delirium most likely secondary to advanced Lewy body dementia, possible lithium toxicity while safe discharge planning is sought Time Spent in Patient Care: Greater than 35 minutes (>than 50% of time spent in counselling and/or direct pt care on unit) . Coding Level of Care Code Acute [facility] Liner for [facility] Fwd Diagnoses Delirium R41.0 Lewy body dementia G31.83; F02.81 Dementia behavioral disturbance: with behavioral disturbance [place] toxicity T56.891A Encounter type: initial encounter Injury intent: accidental or unintentional Hyperthyroidism E05.90 Acute renal insufficiency N28.9 Hypertension I10 Hypertension type: primary hypertension Depression F32.89 Depression Type: other depression Long-term use of hydroxychloroquine Z79.899 Parkinsonism G21.8 Parkinsonism type: secondary Parkinsonism Secondary Parkinsonism type: other secondary Glaucoma H40.9 Glaucoma type: unspecified Pacemaker Z95.0
--- NOTE | 2021-07-13 19:15 | PC.NURSE ---
Shift report received from Rome MELTON. Patient sitting up in bed/ alarm on for prevention of falls/safety. Confusion present and patient does challenge bed alarm. Unable to comprehend to use call light for assistance. IV L FA/SL. No fluids infusing at this time as patient per report continually pulls on line. Day patent/draining clear yellow urine. Telemetry monitoring present. No needs noted at this time.
[2021-07-13 19:34] LABS: Amphetamines Screen Urine Negative (Negative); Barbiturates Screen Urine Negative (Negative); Benzodiazepines Screen Urine Negative (Negative); Cocaine Screen Urine Negative (Negative); Opiate Screen Urine Negative (Negative); PCP Screen Urine Negative (Negative); THC Screen Urine Negative (Negative)
[2021-07-13 20:00] VITALS: BP 144/80; PULSE 77; RESP 18; TEMP 36.6; O2SAT 96
[2021-07-13] MEDS: latanoprost 0.005% Op Soln 2.5 mL Btl 1 DROP EYE-BOTH (20:54)
[2021-07-14] VITALS (8 sets, daily range): BP systolic 148–186; BP diastolic 70–92; PULSE 69–81; RESP 16–18; TEMP 36.7–37.1; O2SAT 95–98
--- NOTE | 2021-07-14 00:20 | PC.NURSE ---
Patient in bed/awake. No s/s of pain or discomfort. Sitter at bedside to preserve medical lines. Patient is restless and keeps trying to get out of bed. Patient challenges bed alarm and does not comprehend to call staff for ADL's.
[2021-07-14] MEDS: haloperidol inj 5 mg/mL INJ 1 mL IVP ×3 (01:48→22:11)
--- NOTE | 2021-07-14 02:50 | PC.NURSE ---
Patient in bed/resting at this time. No s/s of pain or discomfort. Sitter at bedside for integrity of medical lines/prevention of falls.
[2021-07-14 07:26] LABS: Alanine Aminotransferase 15 U/L (0-33); Albumin Level 3.9 g/dL (3.5-5.2); Alkaline Phosphatase 93 IU/L (35-105); Aspartate Amino Transferase 22 U/L (0-32); Blood Urea Nitrogen 14 mg/dL (8-23); Calcium 9.5 mg/dL (8.5-10.5); Carbon Dioxide 19 mmol/L (22-29); Chloride 111 mmol/L (98-107); Globulin 1.5 g/dL (1.3-4.6); Glucose 94 mg/dL (65-115); Osmolality Calculated 292 mOsm/kg (285-295); Sodium 141 mmol/L (136-145); Total Bilirubin 0.7 mg/dL (0.15-1.2); Total Protein 5.4 g/dL (6.6-8.7)
[2021-07-14 07:27] LABS: Anion Gap 15.2 (5-19); Potassium 4.2 mmol/L (3.5-5.1)
[2021-07-14 07:46] LABS: Basophils # 0.1 10^3/uL (0.0-0.1); Basophils % 0.5 %; Eosinophils # 0.1 10^3/uL (0.0-0.8); Eosinophils % 1.3 %; Hematocrit 40.6 % (37.0-47.0); Hemoglobin 13.2 g/dL (11.5-15.3); Lymphocytes # 1.3 10^3/uL (0.8-4.8); Lymphocytes % 13.9 %; Mean Corpuscular HGB Conc 32.5 g/dL (30.0-36.0); Mean Corpuscular Hemoglobin 30.8 pg (28.0-34.0); Mean Corpuscular Volume 94.9 fl (81-99); Mean Platelet Volume 14.2 fL (7.4-10.4); Monocytes # 0.8 10^3/uL (0.2-0.9); Monocytes % 8.2 %; Neutrophils # 7.14 10^3/uL (1.8-7.7); Neutrophils % 75.8 %; Nucleated Red Blood Cells % 0 %; Platelet Count 102 10^3/cmm (130-400); Red Blood Count 4.28 10^6/uL (4.1-5.3); Red Cell Distribution Width 13.1 % (12.1-15.1); White Blood Count 9.4 10^3/uL (4.0-10.0)
[2021-07-14 07:47] LABS: Slide Review Slide Review Perform
[2021-07-14] MEDS: sodium chloride 0.9% 1,000 ML 100 ML IV ×3 (08:37→22:52)
[2021-07-14] MEDS: lithium carbonate 300 mg Capsule PO ×2 (08:38→17:29)
[2021-07-14] MEDS: folic acid 1 mg Tablet PO (08:38)
[2021-07-14] MEDS: levothyroxine 50 mcg Tablet PO (08:39)
[2021-07-14] MEDS: escitalopram 10 mg Tablet 5 MG PO (08:39)
[2021-07-14] MEDS: pantoprazole DR 40 mg Tablet PO (08:39)
[2021-07-14] MEDS: metoprolol tartrate 50 mg Tablet 75 MG PO ×2 (08:39→21:52)
[2021-07-14] MEDS: amlodipine 10 mg Tablet PO (10:24)
--- NOTE | 2021-07-14 19:55 | PC.NURSE ---
Shift report received from Lolita MELTON. Patient in bed awake. No s/s of pain or discomfort. IV patent/ infusing NS at 100mL/hr. Day patent draining clear yellow urine. Sitter at bedside for integrity of medical lines/prevention of falls. No needs voiced at this time.
[2021-07-14] MEDS: latanoprost 0.005% Op Soln 2.5 mL Btl 1 DROP EYE-BOTH (21:52)
--- NOTE | 2021-07-14 21:58 | P.PN_ITS ---
Subjective Subjective: Interval history: No acute events overnight. Patient has remained comfortable, sitter at bedside. Patient remains confused. Mumbling but following simple commands. Denies of any acute complaints. Blood pressures have remained slightly elevated. Otherwise have remained on room air and afebrile. MRI could not be done yesterday because of history of pacemaker implantation. Vitals/I&O/Wt Last Vital Signs Temp 98.4 F 07/14/21 15:30 Pulse 73 07/14/21 15:30 Resp 16 07/14/21 15:30 BP 160/70 07/14/21 15:30 Pulse Ox 96 07/14/21 15:30 07/14/21 07/14/21 07/14/21 06:59 14:59 22:59 Intake Total 1000 / 2360 480 / 480 1008.333 / 1488.333 Output Total 1450 / 2800 1150 / 1150 Balance -450 / -440 -670 / -670 1008.333 / 338.333 Physical Exam Narrative: EXAM NARRATIVE: General: In no acute distress, confused, awake, following simple commands, mumbling and fidgety HEENT: PERRLA, pupils bilaterally equal and reactive erythematous tongue. Chest: Normal vesicular breath sounds, no added sounds, equal good air entry bilaterally CVS: S1-S2 regular, no murmurs, no tachycardia, no gallops, no rubs Abdomen: Soft, nontender, no organomegaly, bowel sounds present Neuro: No focal deficits, no facial deformity, AO x3, power 5/5 in all limbs Urinary Catheter Management^: Day: Cath Placed During This Visit: yes Reason for Continuing Indwelling Catheter: Accurate Measurement of Urinary Output in Critically Ill Patients Urinary Catheter Date of Insertion: 07/13/21 Data : 07/14/21 06:06 07/14/21 06:06 Micro: Microbiology 07/13/21 10:53 Blood Culture - Preliminary Blood NEGATIVE TO DATE 07/13/21 10:50 Blood Culture - Preliminary Blood NEGATIVE TO DATE A&P Assessment and plan (1) Delirium: Most likely worsening of underlying Lewy body dementia along with a possible history of bipolar depression. Can be secondary to press syndrome because of elevated blood pressures but less likely. Patient takes lithium as an outpatient. Less likely infectious cause as patient has had ongoing delirium worsening for last 6 to 7 months since demise of her . Less likely secondary to mildly elevated lithium levels. [place] levels within normal limits now. Requested MRI but unfortunately could not be done because of history of pacemaker implantation so cannot confirm press syndrome. CTA head and neck negative for any acute abnormality. Vitamin B12, folate, urine drug screen, salicylate and Tylenol levels within normal limits. RPR pending. Continue with sitter. Frequent reorientation. Day catheterization. Status: Acute (2) Lewy body dementia: Previously had had good control on Exelon patch but looks like she quit taking it in December of last year. Seems to be the driving reason Status: Chronic Qualifiers: Dementia behavioral disturbance: with behavioral disturbance Qualified Code(s): G31.83 - Dementia with Lewy bodies; F02.81 - Dementia in other diseases classified elsewhere with behavioral disturbance (3) [place] toxicity: Resolved. Not sure of lithium toxicity as not sure how long before the lithium was tested that patient take her medicine. Repeat lithium level within normal limits. Start patient on low-dose 300 mg twice daily to avoid withdrawal. Most likely patient takes lithium for bipolar disorder/bipolar depression. Status: Acute Qualifiers: Encounter type: initial encounter Injury intent: accidental or unintentional Qualified Code(s): T56.891A - Toxic effect of other metals, accidental (unintentional), initial encounter (4) Hyperthyroidism: Most likely secondary to high lithium levels. TSH low, free T4 mildly elevated troponin T3 is normal. Will restart levothyroxine at 50 mcg which is her home dose. Does not have any tachycardia, fever, constipation. Will recheck thyroid panel in 1 week. Status: Acute (5) Acute renal insufficiency: Resolved. Most likely secondary to dehydration admission. Continue with IV fluids as above. Monitor BMP daily. Status: Acute (6) Hypertension: Goal blood pressure less than 140/90 mmHg. Continue with home dose of metoprolol, and amlodipine 10 mg daily. We will add further medication if required and a blood pressure higher than excepted range. Status: Chronic Qualifiers: Hypertension type: primary hypertension Qualified Code(s): I10 - Essential (primary) hypertension (7) Depression: Status: Chronic Qualifiers: Depression Type: other depression Qualified Code(s): F32.89 - Other specified depressive episodes (8) Long-term use of hydroxychloroquine: Unclear diagnosis for which this was prescribed. Clinically patient does not appear to have rheumatoid arthritis nor do I see clear evidence of SLE which is some of the more common diagnoses for which hydroxychloroquine is prescribed. I am wondering if it is being utilized as an alternative anti-inflammatory agent that is a bit more compatible with lithium for osteoarthritis. I do have documentation available in the medical record that she was taking it before the COVID pandemic started. 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 Have tried multiple times to get in touch with him but unable. We will confirm the number with case management. Full code for now. Will discussion detail with son when possible. Tried calling but no answer. Discussed with sister at bedside. She wants uncle to make decisions. Full liquid diet. Protonix OPD prophylaxis. Lovenox for DVT prophylaxis. Discharge planning: Unfortunately this seems to be patient's baseline mentation which seems to be getting worse because of worsening Lewy body dementia. Patient is a resident at assisted living. We will get physical therapy evaluation and plan to discharge to [facility] versus SNF depending on the evaluation. Case management alerted. Attestations Medical Necessity Statement*: Requires further management and evaluation for worsening delirium in setting of Lewy body dementia, possible bipolar disorder and advanced age lady with physical deconditioning while safe discharge planning is sought. Time Spent in Patient Care: Greater than 35 minutes (>than 50% of time spent in counselling and/or direct pt care on unit) . Coding Level of Care Code Acute Creative Engagement Director for [facility] Fwd Diagnoses Delirium R41.0 Lewy body dementia G31.83; F02.81 Dementia behavioral disturbance: with behavioral disturbance [place] toxicity T56.891A Encounter type: initial encounter Injury intent: accidental or unintentional Hyperthyroidism E05.90 Acute renal insufficiency N28.9 Hypertension I10 Hypertension type: primary hypertension Depression F32.89 Depression Type: other depression Long-term use of hydroxychloroquine Z79.899 Parkinsonism G21.8 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
--- NOTE | 2021-07-14 22:15 | PC.NURSE ---
Patient is verbally upset/ screaming at staff/ restless/ sitter at bedside. PRN administered at this time.
[2021-07-15 04:00] VITALS: BP 169/71; PULSE 72; RESP 18; TEMP 36.5; O2SAT 98
--- NOTE | 2021-07-15 05:54 | PC.NURSE ---
Trying to attempt to take vital signs for patient and she screams don't touch me. Was able to get bp in ankle.
[2021-07-15] MEDS: lithium carbonate 300 mg Capsule PO (07:44)
[2021-07-15] MEDS: pantoprazole DR 40 mg Tablet PO (07:45)
[2021-07-15] MEDS: levothyroxine 50 mcg Tablet PO (07:45)
[2021-07-15] MEDS: metoprolol tartrate 50 mg Tablet 75 MG PO (07:45)
[2021-07-15 07:46] VITALS: BP 186/80; PULSE 70; RESP 17; O2SAT 96
[2021-07-15] MEDS: folic acid 1 mg Tablet PO (07:46)
[2021-07-15] MEDS: amlodipine 10 mg Tablet PO (07:46)
[2021-07-15] MEDS: escitalopram 10 mg Tablet 5 MG PO (07:46)
[2021-07-15] MEDS: sodium chloride 0.9% 1,000 ML 100 ML IV (07:58)
[2021-07-15 08:00] VITALS: BP 186/80; PULSE 70; RESP 17
[2021-07-15] MEDS: cloNIDine 0.2 mg/24 hr Patch 1 PATCH TRANSDERMA (11:25)
[2021-07-15 12:00] VITALS: BP 164/75; PULSE 72; RESP 15; O2SAT 94
--- NOTE | 2021-07-15 12:10 | PC.SOCIAL ---
IM follow up provided to patient Lars Kim by phone and he verbalized understanding. Left copy in room as well. He is okay with dc today if HH is set up.
--- NOTE | 2021-07-15 14:33 | P.DS_ITS ---
Discharge Providers Date of Admission: 07/12/21 23:16 Date of Discharge: July 15, 2021 Attending Provider at Admission: Genna Bryant MD Attending Provider at Discharge: Jake Palm MD Primary Care Provider: Johnnie Tam DO Diagnoses at Discharge Discharge Diagnosis (1) Delirium: Status: Acute (2) Lewy body dementia: Status: Chronic Qualifiers: Dementia behavioral disturbance: with behavioral disturbance Qualified Code(s): G31.83 - Dementia with Lewy bodies; F02.81 - Dementia in other diseases classified elsewhere with behavioral disturbance (3) [place] toxicity: Status: Acute Qualifiers: Encounter type: initial encounter Injury intent: accidental or unintentional Qualified Code(s): T56.891A - Toxic effect of other metals, accidental (unintentional), initial encounter (4) Hyperthyroidism: Status: Acute (5) Acute renal insufficiency: Status: Acute (6) Hypertension: Status: Chronic Qualifiers: Hypertension type: primary hypertension Qualified Code(s): I10 - Essential (primary) hypertension (7) Depression: Status: Chronic Qualifiers: Depression Type: other depression Qualified Code(s): F32.89 - Other specified depressive episodes (8) Long-term use of hydroxychloroquine: Status: Chronic Permanent problem details: for treatment of unclear diagnosis (9) 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 Qualifiers: 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 Her in October of this year. She has declined since then. History is obtained from her sister and her niece. They think that in dealing with her grief after he that she quit taking a lot of her medications. The last time she saw Dr. Kennedy in October was when her was in the hospital prior to his . There is indication that she had not been taking her medications as prescribed at that time because of being worried about him. She had wanted Dr. Kennedy to prescribe her a sleeping pill. Several had been tried without any result. Dr. Kennedy iterated that she was not going to prescribe a sleeping pill and patient has not followed with her since then. She was previously stabilized, in terms of her dementia, on Exelon patches 4.6 mg daily. The sister is fairly certain she has not taken the Exelon patch since shortly after that appointment. Looks like the last time prescription appears electronically is in December of 2020. Patient lived alone and had progressively increasing memory issues and confusion over time. She had also had weight loss and was not interacting with her sister as much. She had an apartment in [facility] where she moved to and was staying there. Around a month ago the degree of her confusion worsened possibly acutely. Was taken to [facility] in [place]. She was evaluated in the emergency room and subsequently sent to a nursing facility in [facility]. Unclear if was a dementia unit or other type of facility. She was not actually admitted to the hospital apart from the emergency room according to the sister. From what I gather her mental status and conditioning has further declined in the interim. Patient's son went to visit her in [place] facility she was at about a week ago and she was subsequently taken out of that facility and placed at [facility] locally on this past . On Tuesday she was seen at the urgent care clinic for possible urinary tract infection. Complaints at that time were altered mental status, dysuria, left-sided flank pain. Urinalysis had leukocyte esterase. She was diagnosed clinically as UTI/Pyelo. Received a dose of Rocephin and was started on some Bactrim of which she has had 1 dose. Today brought in to the emergency room for evaluation due to progressively worsening symptoms even further, today weak and not able to get around as good, not as responsive. There is no report of any fever, vomiting, diarrhea known. Hospital course: Patient was admitted to the hospital for further evaluation of delirium. Multiple organic causes including electrolyte abnormality, liver dysfunction, stroke were ruled out. On admission patient had mildly elevated lithium level for which lithium was withheld for 24 hours and repeat lithium level was checked which showed resolution and lithium was started on lower dose. On admission patient had mildly deranged thyroid levels most likely from lithium and she was continued on her home dose of levothyroxine. On admission patient was in mild RAJNI which was treated with IV hydration and Kidney functions are back to baseline. Stroke was ruled out with a negative CT and CTA head and neck. Patient continued to remain confused. Patient's confusion is more chronic process rather than acute hence infectious cause was ruled out. RPR was negative, vitamin B12, folate levels were within range. Patient was found to have elevated blood pressures for which her antihypertensives were adjusted. She was started on amlodipine 10 mg daily and a clonidine patch. 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 Unfortunately MRI could not be done because of history of pacemaker implantation. Patient's care and plan was discussed in detail with patient's son/DPOA over the phone. He verbalized understanding. Care was also discussed with staff at assisted living facility and they were agreeable for patient to be back with home health. Home health was arranged. Patient is being discharged in hemodynamically stable condition at her baseline mentation. CODE STATUS were discussed in detail with the son. He wants to go ahead with patient's wishes and patient is DNR/DNI. Physical Exam Narrative: EXAM NARRATIVE: General: In no acute distress, confused, awake, following simple commands, mumbling and fidgety HEENT: PERRLA, pupils bilaterally equal and reactive erythematous tongue. Chest: Normal vesicular breath sounds, no added sounds, equal good air entry bilaterally CVS: S1-S2 regular, no murmurs, no tachycardia, no gallops, no rubs Abdomen: Soft, nontender, no organomegaly, bowel sounds present Neuro: No focal deficits, no facial deformity, AO x3, power 5/5 in all limbs Urinary Catheter Management^: Day: Cath Placed During This Visit: yes Reason for Continuing Indwelling Catheter: Other Urinary Catheter Date of Insertion: 07/13/21 Discharge Data Data Completed and Pending: Completed Studies During Hospitalization Category Date Time Status CT abdomen pelvis w con* [id number] Urge nt Cat Scan 07/12/21 19:[address] angio headneck * [id number] Rout ine Cat Scan 07/13/21 14:[address] head wo con* [id number] Urgent Cat Scan 07/12/21 17:39 Completed XR chest 1V josee ble [id number] Urgent Exams 07/12/21 17:39 Completed Pending at discharge Category Date Time Status Blood Culture Sta t Lab 07/12/21 17:40 Results Addt'l Data from Hospital Stay: Radiology Impressions Chest X-Ray 07/12/21 17:39 IMPRESSION: Nonacute. Head CT 07/12/21 17:39 IMPRESSION: No evidence of active or acute intracranial pathologic process, hemorrhage, or trauma. Abdomen/Pelvis CT 07/12/21 19:25 IMPRESSION: No acute findings.Non acute findings as described above. Head/Neck CTA 07/13/21 14:23 IMPRESSION: Limited examination as above with no arterial obstruction identified. Microbiology 07/13/21 10:53 Blood Blood Culture - Preliminary NEGATIVE TO DATE 07/13/21 10:50 Blood Blood Culture - Preliminary NEGATIVE TO DATE Laboratory Results WBC 9.4 10^3/uL (4.0- 10.0) 07/14/21 06:06 RBC 4.28 10^6/uL (4.1 -5.3) 07/14/21 06:06 Hgb 13.2 g/dL (11.5-1 5.3) 07/14/21 06:06 Hct 40.6 % (37.0-47.0 ) 07/14/21 06:06 MCV 94.9 fl (81-99) 07/14/21 06:06 MCH 30.8 pg (28.0-34. 0) 07/14/21 06:06 MCHC 32.5 g/dL (30.0-3 6.0) 07/14/21 06:06 RDW 13.1 % (12.1-15.1 ) 07/14/21 06:06 Plt Count 102 10^3/cmm (130 -400) L 07/14/21 06:06 MPV 14.2 fL (7.4-10.4 ) H 07/14/21 06:06 Neut % (Auto) 75.8 % 07/14/21 06:06 Lymph % (Auto) 13.9 % 07/14/21 06:06 Bradford % (Auto) 8.2 % 07/14/21 06:06 Eos % (Auto) 1.3 % 07/14/21 06:06 Baso % (Auto) 0.5 % 07/14/21 06:06 Neut # (Auto) 7.14 10^3/uL (1.8 -7.7) 07/14/21 06:06 Lymph # (Auto) 1.3 10^3/uL (0.8- 4.8) 07/14/21 06:06 Bradford # (Auto) 0.8 10^3/uL (0.2- 0.9) 07/14/21 06:06 Eos # (Auto) 0.1 10^3/uL (0.0- 0.8) 07/14/21 06:06 Baso # (Auto) 0.1 10^3/uL (0.0- 0.1) 07/14/21 06:06 Nucleated RBC % (a uto) 0 % 07/14/21 06:06 Nucleated RBCs # 0.0 /100WBC 07/14/21 06:06 Sodium 141 mmol/L (136-1 45) 07/14/21 06:06 Potassium 4.2 mmol/L (3.5-5 .1) 07/14/21 06:06 Chloride 111 mmol/L (98-10 7) H 07/14/21 06:06 Carbon Dioxide 19 mmol/L (22-29) L 07/14/21 06:06 Anion Gap 15.2 (5-19) 07/14/21 06:06 BUN 14 mg/dL (8-23) 07/14/21 06:06 Creatinine 0.7 mg/dL (0.5-0. 9) 07/14/21 06:06 GFR Calculation Not Reportable 07/14/21 06:06 Glucose 94 mg/dL (65-115) 07/14/21 06:06 POC Glucose 87 mg/dL (70-110) 07/12/21 18:21 Calculated Osmolal ity 292 mOsm/kg (285- 295) 07/14/21 06:06 Lactic Acid 0.9 mmol/L (0.5-2 .2) 07/12/21 18:02 Calcium 9.5 mg/dL (8.5-10 .5) 07/14/21 06:06 Phosphorus 2.9 mg/dL (2.5-4. 5) 07/13/21 04:55 Magnesium 2.3 mg/dL (1.7-2. 3) 07/13/21 04:55 Total Bilirubin 0.7 mg/dL (0.15-1 .2) 07/14/21 06:06 AST 22 U/L (0-32) 07/14/21 06:06 ALT 15 U/L (0-33) 07/14/21 06:06 Alkaline Phosphata se 93 IU/L (35-105) 07/14/21 06:06 Creatine Kinase 73 U/L (26-192) 07/12/21 18:02 Total Protein 5.4 g/dL (6.6-8.7 ) L 07/14/21 06:06 Albumin 3.9 g/dL (3.5-5.2 ) 07/14/21 06:06 Globulin 1.5 g/dL (1.3-4.6 ) 07/14/21 06:06 Vitamin B12 306 pg/mL (232-12 45) 07/13/21 04:55 Folate > 20.0 ng/mL (4.8 -37.3) 07/13/21 04:55 TSH 0.21 uIU/mL (0.27 -4.20) L 07/12/21 18:02 Free T4 2.18 ng/dL (0.82- 1.77) H 07/12/21 18:02 Free T3 2.7 PG/ML (2.0-4. 4) 07/12/21 18:02 Urine Color Yellow (Yellow) 07/12/21 18:02 Urine Appearance Clear (CLEAR) 07/12/21 18:02 Urine pH 7 (5-7) 07/12/21 18:02 Ur Specific Gravit y 1.005 (1.005-1.0 30) 07/12/21 18:02 Urine Protein Neg (Negative) 07/12/21 18:02 Urine Glucose (UA) Norm (Normal) 07/12/21 18: Urine Ketones Negative (Negati ve) 07/12/21 18: Urine Blood Neg (Negative) 07/12/21 18: Urine Nitrate Negative (Negati ve) 07/12/21 18:02 Urine Bilirubin Neg (Negative) 07/12/21 18:02 Urine Urobilinogen Norm mg/dL (Negat neo) 07/12/21 18:02 Ur Leukocyte Alexandra ase Negative (Negati ve) 07/12/21 18:02 Salicylates < 0.3 mg/dL (3-10 ) L 07/12/21 18:02 Urine Opiates Scre en Negative ng/mL (N egative) 07/12/21 18:02 Acetaminophen < 5.0 ug/mL (10-3 0) L 07/12/21 18:02 Ur Barbiturates Sc reen Negative ng/mL (N egative) 07/12/21 18:02 Ur Phencyclidine S crn Negative ng/mL (N egative) 07/12/21 18:02 Ur Amphetamines Sc reen Negative ng/mL (N egative) 07/12/21 18:02 U Benzodiazepines Scrn Negative ng/mL (N egative) 07/12/21 18:02 [place] 1.0 mmol/L (0.6-1 .2) 07/14/21 06:24 Urine Cocaine Scre en Negative ng/mL (N egative) 07/12/21 18:02 U Marijuana (THC) Screen Negative ng/mL (N egative) 07/12/21 18:02 Ethyl Alcohol < 10 mg/dL (0-10) 07/12/21 18:02 RPR Nonreactive (Non reactive) 07/13/21 04:55 Coronavirus 229E ( PCR) Not detected (NO T DETECT) 07/12/21 22:35 SARS-CoV-2 (PCR) Not detected (NO T DETECT) 07/12/21 22:35 SARS-CoV-2 Ag (Rap id) Negative (Negati ve) 07/12/21 21:36 Vitals: Last Vital Signs Temp 97.7 F 07/15/21 04:00 Pulse 72 07/15/21 12:00 Resp 15 07/15/21 12:00 BP 164/75 07/15/21 12:00 Pulse Ox 94 07/15/21 12:00 Discharge Plan Discharge Patient Disposition: Home Health Service Condition: Stable Prescriptions: New clonidine 0.2 mg/24 hr Patch Weekly 1 patch transdermal Q7D 30 Days Qty: 5 RF: 3 amlodipine 10 mg Tablet 10 mg PO DAILY 30 Days Qty: 30 RF: 0 pantoprazole 40 mg Tablet,Delayed Release (Dr/Ec) 40 mg PO DAILY 30 Days Qty: 30 RF: 0 Continued levothyroxine 50 mcg capsule 50 mcg PO DAILY@0800 RF: 0 folic acid 1 mg tablet 1 mg PO DAILY@799 RF: 0 latanoprost 0.005 % drops 1 drp ophthalmic (eye) BEDTIME@1999 RF: 0 Zofran 4 mg Tablet 4 mg PO Q6H PRN (Reason: Nausea) RF: 0 docusate sodium 100 mg Capsule 100 mg PO DAILY PRN (Reason: Constipation) RF: 0 Lexapro 5 mg Tablet 5 mg PO DAILY RF: 0 melatonin 5 mg Tablet 10 mg PO BEDTIME@1999 RF: 0 Changed lithium carbonate 300 mg capsule 300 mg PO BID@ Qty: 0 RF: 0 metoprolol tartrate 100 mg Tablet 100 mg PO BID@ Qty: 0 RF: 0 Discontinued hydroxychloroquine 200 mg tablet 200 mg PO BID@799,1999 RF: 0 Bactrim DS 800-160 mg tablet 1 tab PO BID@ RF: 0 Discharge Orders: Discharge Order (Routine); Ordered 07/15/21 Ordered By: Jake Palm Referrals: [facility] ([facility]) [Outside] Johnnie Tam DO [Primary Care Provider] - 2 weeks Discharge Diet: Soft Mechanical Discharge Activity: Resume usual activity Patient Instructions: Opioid Safety Activity Restrictions/Additional Instructions: Dose of metoprolol has been changed to 100 mg daily. Dose of lithium has been changed to 300 mg twice daily. Clonidine patch 0.2 mg has been added to the medication list. Amlodipine 10 mg has also been added. Please continue with fall precautions. Discharge Attestations Time Spent in Discharge Care*: greater than 30 min Specific Discharge Activities: educating and/or supporting family/caregiver, discussing with pcp/other providers, discussing with case planner/social w orkers/dc planners, documenting/other paperwork and evaluating patient/reviewing data Status at Discharge: Cognitive status at discharge: severely impaired cognition , Behavioral status at discharge: cooperative , Functional status at discharge: other assisted ambulation Overall status at discharge: patient is back to baseline Quality Metrics Clinical Quality Measures During this hospital stay, did patient experience: None Coding Level of Care Code Acute [facility] DC note Diagnoses Delirium R41.0 Lewy body dementia G31.83; F02.81 Dementia behavioral disturbance: with behavioral disturbance [place] toxicity T56.891A Encounter type: initial encounter Injury intent: accidental or unintentional Hyperthyroidism E05.90 Acute renal insufficiency N28.9 Hypertension I10 Hypertension type: primary hypertension Depression F32.89 Depression Type: other depression Long-term use of hydroxychloroquine Z79.899 Parkinsonism G21.8 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
[2021-07-15 16:00] VITALS: BP 159/76; PULSE 76; RESP 18; TEMP 36.7; O2SAT 94
[2021-07-15 17:07] VITALS: BP 159/76; PULSE 76; RESP 18; TEMP 36.7; O2SAT 94
== END 2021-07-15 17:07 | disposition home health service (06) ==
LOC: ER 23:10 → MEDSURG 23:34
PROVIDERS: Emergency Medicine; Admitting Provider Hospitalist; Emergency Provider Emergency Medicine; PCP Family Medicine; Visit Provider Student in an Organized Health Care Education/Training Program
DX: R41.0 Disorientation, unspecified (principal); G31.83 Neurocognitive disorder with Lewy bodies; F02.81 Dementia in other diseases classified elsewhere, unspecified severity, with behavioral disturbance; T56.891A Toxic effect of other metals, accidental (unintentional), initial encounter; E05.90 Thyrotoxicosis, unspecified without thyrotoxic crisis or storm; N28.9 Disorder of kidney and ureter, unspecified; I10 Essential (primary) hypertension; F32.89 Other specified depressive episodes; Z79.899 Other long term (current) drug therapy; H40.9 Unspecified glaucoma; Z95.0 Presence of cardiac pacemaker; R53.81 Other malaise; Z82.49 Family history of ischemic heart disease and other diseases of the circulatory system
CPT/HCPCS: 36415; 36416; 51702; 70450; 70496; 70498; 71045; 74177; 80048; 80053; 80178; 80306; 80307; 81000; 81003; 82550; 82607; 82746; 82962; 83605; 83735; 84100; 84439; 84443; 84481; 85025; 86592; 87040; 87426; 87635; 93005; 96361; 96372; 96374; 96375; 97162; 97530; 99285; G0378; J1630; J1650; J2060; J2270; J2405; J7030; Q9967

== ENCOUNTER 2021-09-02 00:30 | Emergency (ER) | payer MEDICARE, SELFPAY ==
--- NOTE | 2021-09-02 00:34 | XRR_ITS ---
PROCEDURE INFORMATION: Exam: XR Right Hip Exam date and time: 09/02/2021 12:34 AM Age: 86 years old Clinical indication: Injury or trauma; Fall; Blunt trauma (contusions or hematomas); Right; Patient HX: Patient fell onto floor at home. C/O RT hip pain. TECHNIQUE: Imaging protocol: XR Right hip. Views: 1 view hip with pelvis when performed. COMPARISON: CT abdomen pelvis w con* [id number] 07/12/2021 7:42 PM FINDINGS: Bones/joints: Alignment is normal. No acute fracture. Small osteophytes and mild joint space narrowing at the right hip. Vascular calcification in the proximal thigh. Soft tissues: Visible soft tissues are unremarkable. XR/XR hip RT 2-3V wo/w pel* [id number] IMPRESSION: No acute fracture.
--- NOTE | 2021-09-02 00:34 | XRR_ITS ---
PROCEDURE INFORMATION: Exam: XR Lumbosacral Spine Exam date and time: 09/02/2021 12:34 AM Age: 86 years old Clinical indication: Injury or trauma; Fall; Blunt trauma (contusions or hematomas); Patient HX: Patient fell onto floor at home. C/O back pain. TECHNIQUE: Imaging protocol: XR of the lumbosacral spine. Views: 2 or 3 views. COMPARISON: CR XR lumbar spine 2-3V* [id number] 01/06/2021 9:44 AM FINDINGS: Bones/joints: Mild broad-based convex right scoliosis in the lumbar spine centered at L2. No acute fracture. The visible portion of the pelvis and sacrum is intact. Chronic L2 superior endplate compression fracture is stable since 01/06/2021. Moderate lumbar facet spondylosis. Disc space narrowing at L5-S1 and L2-L3. Soft tissues: Unremarkable. Vasculature: Marked aortic atherosclerotic calcification. XR/XR lumbar spine 2-3V* [id number] IMPRESSION: 1. No acute findings. 2. Lumbar degenerative disease and scoliosis. 3. Chronic L2 compression fracture
[2021-09-02 00:35] VITALS: BP 136/77; PULSE 74; RESP 16; TEMP 36.7; O2SAT 97; BMI 24.2
--- NOTE | 2021-09-02 00:37 | W.ED.FALL ---
HPI - Fall General: Chief Complaint: Fall Stated Complaint: FALL Time Seen by Provider: 09/02/21 00:34 Source: patient and EMS Mode of arrival: EMS Limitations: no limitations History of Present Illness: 86-year-old female who states that she got up in the night prison slipped and fell. States she fell onto her right side and fell on her right buttock she has right hip pain along with right lower back pain states pain is a 3 out of 10 she denies hitting her head denies pain elsewhere she has full range of motion of that leg with minimal pain. She denies any upper extremity injuries. Associated symptoms-after fall: Denies abdominal pain, chest pain, headache(s) or neck pain Review of Systems Const: Denies: fever(s), chills, body aches or change in appetite Eyes: Denies: blurry vision or eye discomfort ENMT: Denies: throat pain or dental pain Card: Denies: chest pain Resp: Denies: dyspnea GI: Denies: abdominal pain, nausea, vomiting or diarrhea : Denies: dysuria Musc: Reports: back pain; Denies: neck pain Skin/Breast: Denies: rash Neuro: Denies: headache(s) Psych: Denies: depression Huang/Lymph: Denies: easy bruising All/Imm: Denies: urticaria PFSH ED PFSH: Medical History Depression Glaucoma Hypertension Hyperthyroidism Hypothyroidism Lewy body dementia [place] toxicity Long-term use of hydroxychloroquine for treatment of unclear diagnosis 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 Surgical History History of bilateral knee arthroplasty S/P cardiac pacemaker procedure S/P carpal tunnel release S/P eye surgery S/P foot surgery S/P hysterectomy Family History Other CAD (coronary artery disease) Cancer Denies family history of Diabetes Hypertension Stroke Social History Smoking and tobacco status: never smoked Alcohol intake: never Marital status: / Physical Exam Const: COMMON NORMALS: no acute distress, patient oriented x3 and healthy appearing HENMT: COMMON NORMALS: normocephalic and atraumatic HEAD & SCALP: normocephalic and atraumatic Eye: COMMON NORMALS: Equal, round and reactive pupils present and EOMs intact bilaterally PUPIL: Yes Equal, round and reactive pupils present Neck/C-Spine: COMMON NORMALS: full ROM and supple Chest: COMMONS NORMALS: normal inspection of the chest and normal palpation of entire chest wall Resp: COMMON NORMALS: normal respiratory effort, No retractions, No use of accessory muscles and clear to auscultation bilaterally AUSCULTATION: clear to auscultation bilaterally Cardio: COMMON NORMALS: regular rate, regular rhythm and No murmurs present (Cardio) RATE: regular rate RHYTHM: regular rhythm GI: COMMON NORMALS: Normal to inspection, nondistended, normoactive bowel sounds present, Soft to palpation, non-tender and no masses PALPATION: Yes Soft to palpation Back/Pelvis: OTHER: Tenderness to right lower back Extremity: COMMON NORMALS: normal to inspection and full ROM Neuro: COMMON NORMALS: patient oriented x3, moves all extremities and no focal motor deficits Psych: COMMON NORMALS: mental status grossly normal, Normal thought process present and cooperative THOUGHT PROCESS: Normal thought process present Skin: COMMON NORMALS: no rashes or lesions noted and no wounds GENERAL SKIN EXAM: no rashes or lesions noted Course Vital Signs: Vital signs: Vital Signs Temperature 98.0 F 09/02/21 00:35 Pulse Rate 74 09/02/21 00:35 Respiratory Rate 16 09/02/21 00:35 Blood Pressure 136/77 09/02/21 00:35 Pulse Oximetry 97 09/02/21 00:35 MDM - Fall Medical Decision Making Patient presents here with contusion from the fall she is ambulatory here with no difficulty walking has been walking the halls with no pain currently she did have some point tender pain on her right lower back no midline pain x-ray of her hip and back are normal no head injury no neck injury. Lab Data Radiology Impressions Lumbar Spine X-Ray 09/02/21 00:34 IMPRESSION: 1. No acute findings. 2. Lumbar degenerative disease and scoliosis. 3. Chronic L2 compression fracture Discharge Plan Discharge Patient Disposition: Home Clinical Impression: Fall, Contusion of lower back Condition: Stable Prescriptions: No Action levothyroxine 50 mcg capsule 50 mcg PO DAILY@0800 0RF folic acid 1 mg tablet 1 mg PO DAILY@0800 0RF latanoprost 0.005 % drops 1 drp ophthalmic (eye) BEDTIME@1999 0RF Rx Instructions: use in each eye. Zofran 4 mg Tablet 4 mg PO Q6H PRN (Reason: Nausea) 0RF docusate sodium 100 mg Capsule 100 mg PO DAILY PRN (Reason: Constipation) 0RF Lexapro 5 mg Tablet 5 mg PO DAILY 0RF melatonin 5 mg Tablet 10 mg PO BEDTIME@1999 0RF clonidine 0.2 mg/24 hr Patch Weekly 1 patch transdermal Q7D 30 Days Qty: 5 3RF metoprolol tartrate 100 mg Tablet 100 mg PO BID@08,20 Qty: 0 0RF lithium carbonate 300 mg capsule 300 mg PO BID@08,20 Qty: 0 0RF Discharge Orders: Discharge ED (Routine); Ordered 09/02/21 Ordered By: Alyx Sanchez Referrals: Johnnie Tam, [Primary Care Provider] - Discharge Diet: Advance as tolerated Discharge Activity: Resume usual activity Patient Instructions: Contusion Coding Level of Care Code ED Fire Watcher for Chg Fwd Exam Comprehensive
[2021-09-02] MEDS: HYDROcodone-acetaminophen 5-325 mg Tablet 1 TAB PO (01:19)
[2021-09-02 02:06] VITALS: BP 122/71; PULSE 70; RESP 16; O2SAT 98
--- NOTE | 2021-09-02 07:06 | PC.NURSE ---
sister called for an update. patient awaiting transport
--- NOTE | 2021-09-02 07:11 | PC.NURSE ---
report to patricia - nurse at [facility]
== END 2021-09-02 07:56 | disposition home or self-care (01) ==
PROVIDERS: Emergency Provider Emergency Medicine; PCP Family Medicine
DX: S30.0XXA Contusion of lower back and pelvis, initial encounter (principal); I10 Essential (primary) hypertension; G31.83 Neurocognitive disorder with Lewy bodies; F02.80 Dementia in other diseases classified elsewhere, unspecified severity, without behavioral disturbance, psychotic disturbance, mood disturbance, and anxiety; Z95.0 Presence of cardiac pacemaker; W01.0XXA Fall on same level from slipping, tripping and stumbling without subsequent striking against object, initial encounter; Y92.129 Unspecified place in nursing home as the place of occurrence of the external cause
CPT/HCPCS: 72100; 73502; 99283

== ENCOUNTER 2021-10-25 20:44 | Emergency (ER) | payer MEDICARE, SELFPAY ==
[2021-10-25 21:03] VITALS: BMI 23.6
[2021-10-25 21:10] VITALS: BP 158/86; PULSE 70; RESP 16; TEMP 36.9; O2SAT 98
--- NOTE | 2021-10-25 21:10 | XRR_ITS ---
PROCEDURE INFORMATION: Exam: XR Right Hip Exam date and time: 10/25/2021 9:23 PM Age: 86 years old Clinical indication: Injury or trauma; Fall; Blunt trauma (contusions or hematomas); Right; Hip TECHNIQUE: Imaging protocol: XR Right hip. Views: 1 view hip with pelvis when performed. COMPARISON: CR (PELVIS, ) 09/02/2021 1:08 AM FINDINGS: Bones/joints: Moderate right hip osteoarthritis. Soft tissues: Unremarkable. Vasculature: Scattered vascular calcifications. PROCEDURE INFORMATION: Exam: XR Left Hip Exam date and time: 10/25/2021 9:26 PM Age: 86 years old Clinical indication: Injury or trauma; Fall; Blunt trauma (contusions or hematomas); Left; Groin; Additional info: Hip TECHNIQUE: Imaging protocol: XR Left hip. Views: 2 or 3 views hip with pelvis when performed. COMPARISON: CT abdomen pelvis w con* [id number] 07/12/2021 7:42 PM FINDINGS: Bones/joints: Moderate left hip osteoarthritis. Soft tissues: Unremarkable. Vasculature: Scattered vascular calcifications. XR/XR hip LT 2-3V wo/w pel* [id number] IMPRESSION: 1. Negative for fracture or dislocation 2. Moderate left hip osteoarthritis. 3. Scattered vascular calcifications. Dictated By: Von Deleon MD Signed By: Von Deleon MD Signed Date/Time: 10/25/212234 DD/ 25 MTD XR/XR hip BI m 5V wo/w pel* [id number] IMPRESSION: 1. Negative for fracture or dislocation 2. Moderate right hip osteoarthritis. 3. Scattered vascular calcifications.
--- NOTE | 2021-10-25 21:11 | XRR_ITS ---
PROCEDURE INFORMATION: Exam: XR Left Hip Exam date and time: 10/25/2021 9:26 PM Age: 86 years old Clinical indication: Injury or trauma; Fall; Blunt trauma (contusions or hematomas); Left; Groin; Additional info: Hip TECHNIQUE: Imaging protocol: XR Left hip. Views: 2 or 3 views hip with pelvis when performed. COMPARISON: CT abdomen pelvis w con* [id number] 07/12/2021 7:42 PM FINDINGS: Bones/joints: Moderate left hip osteoarthritis. Soft tissues: Unremarkable. Vasculature: Scattered vascular calcifications.
--- NOTE | 2021-10-25 21:12 | W.ED.FALL ---
HPI - Fall General: Chief Complaint: Fall Stated Complaint: fall, r hip pain Time Seen by Provider: 10/25/21 21:01 Source: patient and EMS Mode of arrival: EMS Limitations: no limitations History of Present Illness: Patient was transported from her assisted living facility due to a fall. She states that she was getting up and walking across the room and stepped on a electrical cord it was on the floor and slipped on the cord falling on her right side striking her right hip. She states her head glanced off the nightstand but it did not hurt her and she did not suffer a loss of consciousness and has no headache or other symptoms at this time. She apparently was able to get to her feet but now complains of not only right hip pain but some left anterior pelvis and left hip pain. She denies any other extremity pain or any other symptoms. There was no prodrome, syncope etc. prior to her slip and fall. MD complaint: fall Fall from: standing Place fall occurred: home Loss of consciousness: None Context: tripped/slipped Location of injury - extremities: Bilateral: thigh Severity: moderate Associated symptoms-after fall: Reports no associated symptoms; Denies abdominal pain, chest pain, difficulty walking, headache(s), lightheadedness, neck pain or vertigo Review of Systems Const: Denies: fever(s) or chills Eyes: Denies: change in vision or blurry vision ENMT: Denies: throat pain or odynophagia Card: Denies: chest pain, palpitations, irregular heart rhythm, lightheadedness, syncope or dyspnea on exertion Resp: Denies: dyspnea, productive cough or non-productive cough GI: Denies: abdominal pain, nausea or vomiting : Denies: flank pain, difficulty voiding or dysuria Musc: Reports: extremity pain and joint pain; Denies: neck pain or back pain Skin/Breast: Denies: rash, pruritus or erythema Neuro: Denies: headache(s), numbness in extremities, weakness in extremities, difficulty walking, dizziness or vertigo Psych: Denies: anxiety or depression Endo: Denies: polyuria or polydipsia PFS ED PFSH: Medical History Depression Glaucoma Hypertension Hyperthyroidism Hypothyroidism Lewy body dementia [place] toxicity Long-term use of hydroxychloroquine for treatment of unclear diagnosis 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 She appears to be comfortable. Const: COMMON NORMALS: no acute distress, patient oriented x3 and alert GENERAL APPEARANCE: cooperative, comfortable and well kempt HENMT: COMMON NORMALS: normocephalic, atraumatic (No step-off or tenderness.), Normal nasal mucous membranes and turbinates present and moist oral mucous membranes HEAD & SCALP: normocephalic and atraumatic (No step-off or tenderness.) NOSE: Normal nasal mucous membranes and turbinates present Eye: COMMON NORMALS: Equal, round and reactive pupils present and EOMs intact bilaterally PUPIL: Yes Equal, round and reactive pupils present Neck/C-Spine: CERVICAL SPINE: Yes cervical ROM normal, No Cervical spine tenderness, No step off deformity, No Paracervical muscle tenderness, No Paracervical spasm and No Trapezius muscle tenderness OTHER: She is able to range her neck voluntarily 45 degrees the left and to the right as well as forward bend 15 degrees without difficulty. No midline tenderness or step-off. Chest: COMMONS NORMALS: normal inspection of the chest and normal palpation of entire chest wall Resp: COMMON NORMALS: normal respiratory effort, No use of accessory muscles and clear to auscultation bilaterally AUSCULTATION: clear to auscultation bilaterally Cardio: COMMON NORMALS: regular rate, No gallops present (Cardio), No murmurs present (Cardio) and Peripheral pulses 2+ throughout RATE: regular rate PERIPHERAL PULSES: Peripheral pulses 2+ throughout GI: COMMON NORMALS: Normal to inspection, nondistended, normoactive bowel sounds present, Soft to palpation and non-tender PALPATION: Yes Soft to palpation : COMMON NORMALS: Yes no CVA tenderness BLADDER/KIDNEY EXAM: Yes no CVA tenderness Back/Pelvis: COMMON NORMALS: no CVA tenderness, thoracic and lumbar spine normal to inspection, no thoracic nor lumbar tenderness and straight leg raise negative bilaterally PELVIS: Yes tenderness over symphysis pubis on the left SACROILIAC JOINTS: Yes SI joint(s) abnormal (Mild tenderness over the right SI joint region is soft tissue without ecchy) SI joint details: tender to palpation (Right) SACRUM: no ecchymosis Extremity: COMMON NORMALS: normal to inspection, capillary refill normal, no calf tenderness and no pedal edema NARRATIVE EXTREMITY EXAM: Examination of left upper extremities reveal no deformity normal range of motion without restriction or tenderness. No ecchymosis. Lower extremities remarkable in that she has no deformity of the lower extremities noted. No shortening or rotation deformity. Bilateral knees and ankles are unremarkable and normal range of motion. She has tenderness over the posterior greater trochanter of the right hip. She is able to flex and internally and externally rotate the right hip. Her left hip is tender over the anterior portion of the hip joint. She has no deformity or's or other lateral hip tenderness. GENERAL: Yes normal exam except as noted and No deformity RIGHT LOWER EXTREMITY: Yes hip joint (Tender posterior normal range of motion) Right hip: Yes ROM (Limited by pain) Neuro: COMMON NORMALS: patient oriented x3, moves all extremities, no focal motor deficits and no sensory deficits noted SENSORIUM/ORIENTATION: Yes alert SPEECH: speech normal Psych: APPEARANCE: Yes well kempt Course Reevaluation(s): Reevaluation #1: Patient ambulated about the emergency department unaided without difficulty. I shared the results of her pelvis and hip x-rays as being normal. I think this is likely a soft tissue injury although she did share with me that her left hip has been bothering her for several months which I suspect is probably arthritic in nature. No evidence of hip or pelvis fractures this evening. Her repeat examination reveals her to be alert and interactive without any new or focal findings on reevaluation. Discussed expected course and reasons for return. Time: 22:34 Vital Signs: Vital signs: Vital Signs Temperature 98.4 F 10/25/21 21:10 Pulse Rate 70 10/25/21 21:59 Respiratory Rate 17 10/25/21 21:59 Blood Pressure 153/78 10/25/21 21:59 Pulse Oximetry 98 10/25/21 21:59 MDM - Fall Medical Decision Making Elderly female with a ground level fall without syncope this evening. X-rays were reassuring and she was allowed to ambulate in the emergency department which she did do unaided. She is stable for discharge at this time with return precautions should she develop any persistent or new symptoms. Medical Records I reviewed the patient's medical records. Other Data I personally reviewed and interpreted the following: Bilateral hips as well as pelvis did not reveal any findings suggestive of fracture or other acute injury at this time. Discharge Plan Discharge Patient Disposition: Home Clinical Impression: Fall from ground level, Soft tissue injury of hip Condition: Stable Prescriptions: No Action levothyroxine 50 mcg capsule 50 mcg PO DAILY@0800 0RF folic acid 1 mg tablet 1 mg PO DAILY@0800 0RF latanoprost 0.005 % drops 1 drp ophthalmic (eye) BEDTIME@2000 0RF Rx Instructions: use in each eye. Zofran 4 mg Tablet 4 mg PO Q6H PRN (Reason: Nausea) 0RF docusate sodium 100 mg Capsule 100 mg PO DAILY PRN (Reason: Constipation) 0RF Lexapro 5 mg Tablet 5 mg PO DAILY 0RF melatonin 5 mg Tablet 10 mg PO BEDTIME@2000 0RF clonidine 0.2 mg/24 hr Patch Weekly 1 patch transdermal Q7D 30 Days Qty: 5 3RF metoprolol tartrate 100 mg Tablet 100 mg PO BID@08,20 Qty: 0 0RF lithium carbonate 300 mg capsule 300 mg PO BID@08,20 Qty: 0 0RF Discharge Orders: Discharge ED (Routine); Ordered 10/25/21 Ordered By: Elijah Vega Referrals: Johnnie Tam DO [Primary Care Provider] - Discharge Diet: Usual diet Discharge Activity: Increase activity as tolerated Patient Instructions: Opioid Safety Activity Restrictions/Additional Instructions: Continue all your usual medications as previously prescribed. Increase your physical activity as tolerated. If you have persistent pain in your hips or pelvis or low back return to this or the nearest emergency department for reevaluation. You may use acetaminophen 650 mg twice daily as needed for pain. 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
[2021-10-25 21:59] VITALS: BP 153/78; PULSE 70; RESP 17; O2SAT 98
[2021-10-25 22:49] VITALS: BP 144/71; PULSE 71; RESP 17; O2SAT 97
== END 2021-10-25 22:54 | disposition home or self-care (01) ==
PROVIDERS: Emergency Provider Emergency Medicine; PCP Family Medicine
DX: S76.001A Unspecified injury of muscle, fascia and tendon of right hip, initial encounter (principal); S76.002A Unspecified injury of muscle, fascia and tendon of left hip, initial encounter; W01.0XXA Fall on same level from slipping, tripping and stumbling without subsequent striking against object, initial encounter; Y92.099 Unspecified place in other non-institutional residence as the place of occurrence of the external cause; G31.83 Neurocognitive disorder with Lewy bodies; Z96.653 Presence of artificial knee joint, bilateral; Z95.0 Presence of cardiac pacemaker
CPT/HCPCS: 73502; 73523; 99283

== ENCOUNTER → 2022-03-05 09:32 | Outpatient (BNVA) | payer MEDICARE, SELFPAY | PROVIDERS: PCP Family Medicine; Visit Provider Internal Medicine Cardiovascular Disease | DX: Z45.010 Encounter for checking and testing of cardiac pacemaker pulse generator [battery] (principal) | CPT/HCPCS: 93280 ==

== ENCOUNTER → 2022-05-21 11:01 | Outpatient (BNVA) | payer MEDICARE, SELFPAY | PROVIDERS: PCP Family Medicine; Visit Provider Internal Medicine Cardiovascular Disease | DX: Z45.010 Encounter for checking and testing of cardiac pacemaker pulse generator [battery] (principal) | CPT/HCPCS: 93280 ==

== ENCOUNTER → 2022-05-26 11:00 | Outpatient (BNVA) | payer MEDICARE, SELFPAY | PROVIDERS: PCP Family Medicine; Visit Provider Internal Medicine Cardiovascular Disease | DX: I10 Essential (primary) hypertension (principal); Z95.0 Presence of cardiac pacemaker; F32.89 Other specified depressive episodes | CPT/HCPCS: 99214 ==

== ENCOUNTER → 2022-06-04 10:56 | Outpatient (BNVA) | payer MEDICARE, SELFPAY | PROVIDERS: PCP Family Medicine; Visit Provider Family Medicine | DX: J02.9 Acute pharyngitis, unspecified (principal); I10 Essential (primary) hypertension; J02.8 Acute pharyngitis due to other specified organisms; B96.89 Other specified bacterial agents as the cause of diseases classified elsewhere; R53.1 Weakness | CPT/HCPCS: 87880 ==

== ENCOUNTER 2022-06-28 15:05 | Outpatient (CLI) | payer MEDICARE, SELFPAY ==
[2022-06-28 15:50] LABS: Basophils # 0.1 10^3/uL (0.0-0.1); Basophils % 1.3 %; Eosinophils # 0.2 10^3/uL (0.0-0.8); Eosinophils % 2.9 %; Hematocrit 40.9 % (37.0-47.0); Hemoglobin 12.7 g/dL (11.5-15.3); Lymphocytes # 1.9 10^3/uL (0.8-4.8); Lymphocytes % 34.4 %; Mean Corpuscular HGB Conc 31.1 g/dL (30.0-36.0); Mean Corpuscular Volume 99.8 fl (81-99); Mean Platelet Volume 11.9 fL (7.4-10.4); Monocytes # 0.6 10^3/uL (0.2-0.9); Monocytes % 10.7 %; Neutrophils # 2.76 10^3/uL (1.8-7.7); Neutrophils % 50.7 %; Nucleated Red Blood Cells % 0 %; Platelet Count 214 10^3/cmm (130-400); Red Cell Distribution Width 13.9 % (12.1-15.1); White Blood Count 5.4 10^3/uL (4.0-10.0)
[2022-06-28 15:59] LABS: INR 1.06 (0.83-1.21); Prothrombin Time (Patient) 14.1 Seconds (12.0-15.1)
[2022-06-28 16:09] LABS: Anion Gap 11.3 (5-19); Blood Urea Nitrogen 18 mg/dL (8-23); Calcium 9.4 mg/dL (8.5-10.5); Carbon Dioxide 25 mmol/L (22-29); Chloride 109 mmol/L (98-107); Glucose 87 mg/dL (65-115); Osmolality Calculated 293 mOsm/kg (285-295); Potassium 4.3 mmol/L (3.5-5.1); Sodium 141 mmol/L (136-145)
== END 2022-06-28 15:06 | disposition home or self-care (01) ==
PROVIDERS: PCP Family Medicine; Visit Provider Internal Medicine Cardiovascular Disease
DX: I10 Essential (primary) hypertension (principal); R53.1 Weakness; Z95.0 Presence of cardiac pacemaker; R58 Hemorrhage, not elsewhere classified
CPT/HCPCS: 36415; 80048; 85025; 85610; 86850; 86900

== ENCOUNTER 2022-07-01 07:38 | Outpatient (CLI) | payer MEDICARE, SELFPAY ==
[2022-07-01] VITALS (10 sets, daily range): BP systolic 113–150; BP diastolic 72–88; PULSE 69–73; RESP 16–18; TEMP 36.3–36.8; O2SAT 91–98; BMI 28.4
--- NOTE | 2022-07-01 08:17 | P.HP_ITS ---
Providers/Chief Complaint Admitting Physician: AURORA Nazario MD Primary Care Provider: Johnnie Tam DO Chief Complaint: Pacemaker LYNDSAY History of Present Illness Rebecca Longoria is a 87 year old female with a history of hypertension, mild aortic valve stenosis, had a permanent pacemaker implantation for symptomatic bradycardia. She was found to have LYNDSAY on the pacemaker during routine i nterrogation. She is here for pacemaker revision. Patient denies any fever or chills. No cough. No chest pain or chest tightness. Had LV ejection fraction was within normal limits, by echocardiogram in 2015. Review of Systems Narrative: CONSTITUTIONAL: No fever or chills. EYES: No blurring of vision or other visual disturbances lately. ENT: No hoarseness of voice, auditory disturbances or sore throat. CARDIOVASCULAR: As mentioned above. RESPIRATORY: No significant cough. GASTROINTESTINAL: No hematemesis or melena. GENITOURINARY: No dysuria or hematuria. INTEGUMENTARY: No skin rashes or history of skin cancer. NEURO: History of dementia PSYCHIATRIC: No history of psychosis or major depression. HEMATOLOGIC: No bleeding disorders or significant anemia. ENDOCRINE: No history of polyuria or polydipsia. MUSCULOSKELETAL: No recent joint pain or swelling. ALLERGY/IMMUNOLOGY: As mentioned above. Medications/Allergies Home Medications Medication Instructions Recorded Confirmed Last Taken Type folic acid 1 mg tablet 1 mg PO DAILY@79907/16/19 06/30/22 07/12/21 History levothyroxine 50 mcg capsule 50 mcg PO DAILY@0807/16/19 06/30/22 07/12/21 History latanoprost 0.005 % eye drops 1 drp ophthalmic (eye) BEDTIME@199907/31/20 06/30/22 07/11/21 History docusate sodium 100 mg capsule 100 mg PO DAILY PRN Constipation 07/12/21 06/30/22 Unknown History escitalopram oxalate 5 mg tablet 5 mg PO DAILY 07/12/21 06/30/22 07/12/21 History (Lexapro) melatonin 5 mg tablet 10 mg PO BEDTIME@199907/12/21 06/30/22 07/11/21 History ondansetron HCl 4 mg tablet 4 mg PO Q6H PRN Nausea 07/12/21 06/30/22 Unknown History (Zofran) metoprolol tartrate 100 mg tablet 100 mg PO BID@ #0 tabs 07/15/21 06/30/22 07/12/21 Rx lithium carbonate 300 mg capsule 300 mg PO BID@ bipoloar #180 01/27/22 06/30/22 Unknown Rx caps psyllium husk 3.4 gram/5.4 gram 1 tbsp PO DAILY #660 grams 02/26/22 06/30/22 Unknown Rx oral powder (Metamucil) triamcinolone acetonide 0.1 % 1 applic topical BID #30 grams 04/30/22 06/30/22 Unknown Rx topical cream amoxicillin 875 mg tablet 875 mg PO BID for infection #14 06/04/22 06/30/22 Unknown Rx tabs Allergies Allergy/AdvReac Type Severity Reaction Status Date / Time No Known Allergies Allergy Verified 06/30/22 08:41 PFSH Acute PFSH: Medical History Depression Glaucoma Hypertension Hyperthyroidism Hypothyroidism Lewy body dementia [place] toxicity Long-term use of hydroxychloroquine for treatment of unclear diagnosis 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 Surgical History History of bilateral knee arthroplasty S/P cardiac pacemaker procedure S/P carpal tunnel release S/P eye surgery S/P foot surgery S/P hysterectomy Family History Other CAD (coronary artery disease) Cancer Denies family history of Diabetes Hypertension Stroke Social History Smoking and tobacco status: never smoked Alcohol intake: never Caregiver/support person: Yes Lives independently: No Housing: Assisted Living Facility Marital status: / Number of children: 2 Highest education level completed: Bachelor's Degree 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 Not in any acute distress. HEENT: No significant pallor, icterus or lymphadenopathy.Oral cavity: There are no mucous membrane lesions. NECK: Trachea appears to be central. No masses noted. No JVD or thyromegaly appreciated. RESPIRATORY: Chest is symmetrical. No intercostals muscle retraction or any accessory muscle activation. There is no chest wall tenderness. Breath sounds are heard bilaterally. No rales or rhonchi heard. No evidence of any consolidation. BREASTS: Deferred. HEART: The heart sounds are normal. No S3 or S4. Ejection sternal murmur grade 3 or 6 in the aortic area. No diastolic murmurs. No pericardial rub ABDOMEN: No vessel pulsations or distention. No tenderness. No organomegaly appreciated. Bowel sounds are normally heard. : Deferred. RECTAL: Deferred. LYMPHATIC: No lymphadenopathy noted in the neck. EXTREMITIES: No edema or cyanosis. No clubbing. MUSCULOSKELETAL: No acute joint deformities or swelling SKIN: There are no significant rashes or ecchymosis NEUROPSYCHIATRIC: The patient is alert and oriented x3. Appears to be in a good mood. No tremors or rigidity noted. A&P Assessment and plan (1) Pacemaker at end of battery life: For further management of the patient condition, she requires a pacemaker revision. The risk of bleeding, hematoma, vascular injury, infection, and other concomitant complications were explained in detail. The patient [] understood this well and consented to proceed. (2) Benign essential HTN: The blood pressure is in the moderate range. We will continue on the current medications. (3) Mild aortic valve stenosis: Patient may not require any specific intervention at this point. Plan Pacemaker revision today. Patient will be kept overnight in the hospital for IV antibiotics. If she remains stable, will be discharged home tomorrow Attestations Medical Necessity Statement*: Patient requires at least 1 midnight stay Coding Level of Care Code Acute Director Of Dementia Operations for Chg Fwd History Expanded Problem Focused Exam Expanded Problem Focused Medical Decision Making Moderate Complexity Diagnoses Pacemaker at end of battery life Z45.010 Benign essential HTN I10 Mild aortic valve stenosis I35.0
--- NOTE | 2022-07-01 08:27 | W.PM.OPSUD ---
Surgery/Procedure H&P Update DATE OF PROCEDURE: July 01, 2022 DATE H&P PERFORMED: 07/01/22 H&P UPDATE INFORMATION: I have reviewed H&P completed within last 30 days, I have examined patient prior to procedure and No changes to prior documentation PREOP DIAGNOSIS: Pacemaker LYNDSAY PRIMARY INDICATION FOR PROCEDURE: Symptomatic bradycardia/pacemaker LYNDSAY PLANNED PROCEDURE: Operation Date: 07/01/22 08:30 Proposed Procedures p Pacemaker Generator Change [id number],Z95.0,Z45.018,R00.1,I45.5,R53.1(Not Applicable) - Serge Nazario MD PATIENT REASSESSED PRIOR TO SEDATION, WITH NO CHANGE NOTED: Yes PHYSICAL EXAM: alert, oriented x 3, clear to auscultation bilaterally and regular rate & rhythm AIRWAY EVAL/ANESTHESIA PLAN: normal airway, see other exam findings, ASA II, Monitored Anesthesia, Local Anesthesia, Risks, benefits & alternatives of sedation and/or procedure discussed and Patient agrees to continue as planned
--- NOTE | 2022-07-01 13:22 | PC.NURSE ---
Report called Report called to [facility] at this time. All questions answered. Pt transferred to 2nd floor via w/c, family at side.
[2022-07-01] MEDS: ceFAZolin 2,000 MG in sodium chloride 0.9% (plus) 50 ML 100 MG IV (16:27)
[2022-07-01] MEDS: lithium carbonate 300 mg Capsule PO (19:48)
[2022-07-01] MEDS: metoprolol tartrate 50 mg Tablet 100 MG PO (19:48)
--- NOTE | 2022-07-01 20:41 | PM.OP ---
Operative Report Date of procedure: July 01, 2022 Pre-op diagnosis: Preop Diagnosis Pacemaker LYNDSAY Procedure: PROCEDURE: PACEMAKER REVISION PREOPERATIVE DIAGNOSIS: Pacemaker elective replacement indication. POSTOPERATIVE DIAGNOSIS: Pacemaker elective replacement indication. ESTIMATED BLOOD LOSS: Around less than 5 milliliters. COMPLICATIONS: None. BRIEF HISTORY: The patient is 87-year-old white female who had a permanent pacemaker implantation for sinus node dysfunction/symptomatic bradycardia. The patient was found to have elective replacement indication, during routine office followup evaluation. For further management of patient's condition for the symptomatic bradycardia, the patient required a pacemaker revision. Patient required a dual-chamber pacemaker for symptom relief and the need for AV synchrony The procedure was explained to the patient and and her sister in detail with the risks and benefits. The risks of bleeding, hematoma, vascular injury, infection and other concomitant complications were explained in detail, which the patient understood well and consented to proceed. PROCEDURES PERFORMED: 1. Explantation of the old pacemaker generator. 2. Implantation of the new generator. The patient brought to the Cardiac Biostatistics Teacher. The left side of the neck and the subclavian area were cleaned and draped in a sterile fashion. 1% Xylocaine was used for local anesthetic agent. A 2 inch long incision was made just below the previous pacemaker scar. By sharp and blunt dissection, the pacemaker pocket was accessed. The old generator was delivered from the pocket. The generator was detached from the lead. The new Medtronic generator was attached to the lead. The pacemaker pocket was copiously irrigated with vancomycin solution. Complete hemostasis was achieved. The lead was positioned behind the generator and the generator was attached to the pectoralis fascia by suturing with 0 Surgilon. Sponge counts were confirmed. The pacemaker pocket was closed in layers. Skin was approximated using 4-0 Vicryl. EXPLANTED DEVICE: Pacemaker Generator: Brand: Adapta. Model number:[id number] Serial number: [id number]. Date of implant: 12/05/2012 IMPLANTED DEVICES: Ventricular Lead: Date of implantation: 12/05/2012 Model number: [id number]/52 Serial number: [id number] Make: Medtronic. Atrial lead Date of implantation: 12/05/2012 Model number: 5076/45 Serial number: [id number] Make: Medtronic. Implanted Generator: Date of implantation : 07/01/2022 Brand: Hannah Wells. Model number: [id number] DR 01 Serial number: [id number] Make: Medtronic Stimulation Threshold: The ventricular sensing was 4.0 millivolts. Ventricular lead impedance was 361 ohms and the pacing threshold was 0.75 volts at 0.4 milliseconds. The atrial sensing was 1.9 millivolts. Atrial lead impedance was 361 ohms and the pacing threshold was 0.5 volts at 0.4 milliseconds. The pacemaker was set for AAIR/DDDR mode with an upper rate of 130 and a lower rate of 70. Atrial sensitivity 0.3 and ventricular sensitivity 0.9. Atrial output 3.5 V at 0.4 ms; ventricular output 3.5 V at 0.4 ms A pressure dressing was applied over the pacemaker site. The patient was transferred back to medical floor in stable condition. Sponge counts were correct.
[2022-07-01] MEDS: latanoprost 0.005% Op Soln 2.5 mL Btl 1 DROP EYE-BOTH (21:30)
[2022-07-01] MEDS: sodium chloride 0.9% 1,000 ML 75 ML IV (21:32)
[2022-07-02 00:08] VITALS: BP 138/73; PULSE 70; RESP 18; TEMP 36.7; O2SAT 94
[2022-07-02] MEDS: ceFAZolin 2,000 MG in sodium chloride 0.9% (plus) 50 ML 100 MG IV ×2 (00:18→08:29)
[2022-07-02 04:08] VITALS: BP 155/77; PULSE 70; RESP 19; TEMP 37; O2SAT 96
[2022-07-02 06:00] VITALS: PULSE 72
--- NOTE | 2022-07-02 06:00 | ECG_ITS ---
[facility] Test Date: 2022-07-02 Pat Name: Rebecca Longoria Department: Room: 271 Gender: Female Brick Wheeler: : 1935 Requested By: Serge Nazario Order Number: [id number] Graciela MD: Tiesha Estrada M.D. Measurements Intervals [place] Rate: 69 P: 130 SD: 254 QRS: -44 QRSD: 120 T: -40 QT: 417 QTc: 449 Interpretive Statements ELECTRONIC ATRIAL PACEMAKER LEFT AXIS DEVIATION [QRS AXIS < -30] MODERATE INTRAVENTRICULAR CONDUCTION DELAY ST DEVIATION AND MODERATE T-WAVE ABNORMALITY, CONSIDER ANTERIOR ISCHEMIA Compared to ECG 07/13/2021 11:04:53 Intraventricular conduction delay now present T-wave abnormality now present Possible ischemia now present Left ventricular hypertrophy no longer present ST (T wave) deviation no longer present Myocardial infarct finding no longer present Electronically Signed On 07-02-2022 20:35:31 MERCHANDISE PICKUP/RECEIVING ASSOCIATE by Tiesha Estrada M.D. [id number]
[2022-07-02 07:49] VITALS: BP 143/76; PULSE 69; RESP 16; TEMP 36.5; O2SAT 94
--- NOTE | 2022-07-02 08:12 | PC.OT ---
OT Eval Not Completed - Patient discharged before time of evaluation.
[2022-07-02] MEDS: psyllium powder Pkt 1 PACKET PO (08:28)
[2022-07-02] MEDS: levothyroxine 50 mcg Tablet PO (08:29)
[2022-07-02] MEDS: folic acid 1 mg Tablet PO (08:30)
[2022-07-02] MEDS: escitalopram 10 mg Tablet 5 MG PO (08:30)
[2022-07-02] MEDS: lithium carbonate 300 mg Capsule PO (08:36)
[2022-07-02] MEDS: metoprolol tartrate 50 mg Tablet 100 MG PO (08:36)
--- NOTE | 2022-07-02 10:30 | PM.PN ---
Subjective Subjective: This patient was admitted to the hospital following the pacemaker revision for IV antibiotics and monitoring. She remained stable throughout the hospital course. No hematoma or bleeding from the pacemaker insertion site. Vital signs remained stable. Medications: Medication Review Details: Current Medications Hydrocodone Bitart/Acetaminophen (Hydrocodone-Acetaminophen 5-325 Mg Tablet) 1 tab PO Q4H PRN PRN Reason: MODERATE PAIN Docusate Sodium (Docusate Sodium 100 Mg Capsule) 100 mg PO DAILY PRN PRN Reason: Constipation Escitalopram Oxalate (Escitalopram 10 Mg Tablet) 5 mg PO DAILY [facility] Last Admin: 07/02/22 08:30 Dose: 5 mg Folic Acid (Folic Acid 1 Mg Tablet) 1 mg PO DAILY@08 [facility] Last Admin: 07/02/22 08:30 Dose: 1 mg Sodium Chloride (Sodium Chloride 0.9%) 1,000 mls @ 75 mls/hr IV .[id number] [facility] Last Admin: 07/01/22 21:32 Dose: 75 mls/hr Latanoprost (Latanoprost 0.005% Op Soln 2.5 Ml Btl) 1 drop EYE-BOTH BEDTIME@1999 [facility] Last Admin: 07/01/22 21:30 Dose: 1 drop Levothyroxine Sodium (Levothyroxine 50 Mcg Tablet) 50 mcg PO DAILY@799 [facility] Last Admin: 07/02/22 08:29 Dose: 50 mcg [place] Carbonate ([place] Carbonate 300 Mg Capsule) 300 mg PO BID@ [facility] Last Admin: 07/02/22 08:36 Dose: 300 mg Metoprolol Tartrate (Metoprolol Tartrate 50 Mg Tablet) 100 mg PO BID@ [facility] Last Admin: 07/02/22 08:36 Dose: 100 mg Non-Formulary Medication (Melatonin) 10 mg PO BEDTIME@1999 [facility] Last Admin: 07/01/22 19:49 Dose: Not Given Ondansetron HCl (Ondansetron 4 Mg Tablet) 4 mg PO Q6H PRN PRN Reason: Nausea Psyllium Hydrophilic Mucilloid (Psyllium Powder Pkt) 1 packet PO DAILY [facility] Last Admin: 07/02/22 08:28 Dose: 1 packet Triamcinolone Acetonide (Triamcinolone 0.1% Cream 15 Gm) 1 applic TOPICAL BID [facility] Last Admin: 07/02/22 08:30 Dose: Not Given Vitals/I&O/Wt Last Vital Signs Temp 97.7 F 07/02/22 07:49 Pulse 69 07/02/22 07:49 Resp 16 07/02/22 07:49 BP 143/76 07/02/22 07:49 Pulse Ox 94 07/02/22 07:49 O2 Del Method 07/02/22 07:49 07/01/22 07/02/22 07/02/22 22:59 06:59 14:59 Intake Total 230 / 230 50 / 280 120 / 120 Output Total 800 / 800 Balance 230 / 230 -750 / -520 120 / 120 Weight last 48 hrs Weight 171 lb Weight 171 lb Physical Exam Narrative: GENERAL: The patient is alert and oriented times three. Not in any acute distress. HEENT: No significant pallor, icterus or lymphadenopathy.Oral cavity: There are no mucous membrane lesions. NECK: Trachea appears to be central. No masses noted. No JVD or thyromegaly appreciated. RESPIRATORY: Chest is symmetrical. No intercostals muscle retraction or any accessory muscle activation. There is no chest wall tenderness. Breath sounds are heard bilaterally. No rales or rhonchi heard. No evidence of any consolidation. The pacemaker site has no hematoma or bleeding BREASTS: Deferred. HEART: The heart sounds are normal. No S3 or S4. No significant murmurs. No pericardial rub ABDOMEN: No vessel pulsations or distention. No tenderness. No organomegaly appreciated. Bowel sounds are normally heard. : Deferred. RECTAL: Deferred. LYMPHATIC: No lymphadenopathy noted in the neck. EXTREMITIES: No edema or cyanosis. No clubbing. MUSCULOSKELETAL: No acute joint deformities or swelling SKIN: There are no significant rashes or ecchymosis NEUROPSYCHIATRIC: The patient is alert and oriented x3. Appears to be in a good mood. No tremors or rigidity noted. Data Micro: Microbiology 07/13/21 10:53 Blood Culture - Preliminary Blood NEGATIVE TO DATE 07/13/21 10:50 Blood Culture - Preliminary Blood NEGATIVE TO DATE A&P Assessment and plan (1) Mild aortic valve stenosis: Since the patient has no specific symptoms of valve dysfunction, advised to continue on the current measures. Will have a follow-up evaluation as scheduled. (2) Pacemaker at end of battery life: Please patient has a pacemaker revision yesterday. Currently is doing okay. Pacemaker was interrogated this morning. The function was found to be appropriate. (3) Benign essential HTN: Blood pressure seems to be fairly under control. We will continue on the current medications. Plan The patient has remained stable, she is being discharged home today. Post pacemaker instructions are given. Attestations Medical Necessity Statement*: Discharge home today Coding Level of Care Code Acute Framing Manager for [facility] Fwd Diagnoses Mild aortic valve stenosis I35.0 Pacemaker at end of battery life Z45.010 Benign essential HTN I10
--- NOTE | 2022-07-02 11:02 | PC.NURSE ---
FOLLOW UP APPOINTMENTS SCHEDULING FOR [facility] DOES NOT HAVE AN OPENING UNTIL 07/14/22 AND THEY WILL SCHEDULE FOR DR. HINES AT THAT APPOINTMENT.
[2022-07-02 11:34] VITALS: BP 145/77; PULSE 69; RESP 16; TEMP 36.6; O2SAT 93
--- NOTE | 2022-07-02 13:27 | PC.OT ---
OT EVAL ATTEMPTED - PATIENT DISCHARGE BEFORE TIME OF EVAL.
== END 2022-07-02 12:52 | disposition home or self-care (01) ==
LOC: CCL 08:18 → MEDSURG 13:46
PROVIDERS: PCP Family Medicine; Visit Provider Internal Medicine Cardiovascular Disease
DX: Z45.010 Encounter for checking and testing of cardiac pacemaker pulse generator [battery] (principal); I10 Essential (primary) hypertension; E03.9 Hypothyroidism, unspecified; G20 Parkinson's disease
CPT/HCPCS: 33213; 33228; 36415; 93005; 96361; 96365; 96367; 99152; 99153; C1769; C1786; J0690; J2250; J3010; J3370; J7030; J7050

== ENCOUNTER → 2022-07-14 13:45 | Outpatient (BNVA) | payer MEDICARE, SELFPAY | PROVIDERS: PCP Family Medicine; Visit Provider Nurse Practitioner Family | DX: I10 Essential (primary) hypertension (principal); Z95.0 Presence of cardiac pacemaker | CPT/HCPCS: 93280; 99213 ==

== ENCOUNTER → 2022-09-29 10:15 | Outpatient (BNVA) | payer MEDICARE, SELFPAY | PROVIDERS: PCP Family Medicine; Visit Provider Family Medicine | DX: R39.9 Unspecified symptoms and signs involving the genitourinary system (principal) | CPT/HCPCS: 81000 ==

== ENCOUNTER → 2022-10-22 10:57 | Outpatient (BNVA) | payer MEDICARE, SELFPAY | PROVIDERS: PCP Family Medicine; Visit Provider Family Medicine | DX: G47.09 Other insomnia (principal); R53.1 Weakness; E05.90 Thyrotoxicosis, unspecified without thyrotoxic crisis or storm | CPT/HCPCS: 80053; 84443 ==

== ENCOUNTER → 2022-12-08 14:11 | Outpatient (BNVA) | payer MEDICARE, SELFPAY | PROVIDERS: PCP Family Medicine; Visit Provider Internal Medicine | DX: I10 Essential (primary) hypertension (principal); Z95.0 Presence of cardiac pacemaker; F32.89 Other specified depressive episodes | CPT/HCPCS: 99214 ==

== ENCOUNTER 2022-12-24 13:06 | Outpatient (CLI) | payer MEDICARE, SELFPAY ==
--- NOTE | 2022-12-24 13:00 | USCV_ITS ---
Rebecca Longoria Age: 87 Gender: F : 1935 Exam Date: 12/24/2022 13:25 Ordering Phys: Armond Bro M.D ([email or web address]) Technologist: [place] [facility] [place]: chest pain BP: 130 / 72 HR: 77 Rhythm: Sinus Technical Quality: Adequate MEASUREMENTS (Male / Female) Normal Values 2D ECHO LV Diastolic Diameter PLAX 5.1 cm 4.2 - 5.9 / 3.9 - 5.3 cm LV Systolic Diameter PLAX 3.4 cm IVS Diastolic Thickness 1.3 cm 0.6 - 1.0 / 0.6 - 0.9 cm IVS Systolic Thickness 2.0 cm LVPW Diastolic Thickness 1.2 cm 0.6 - 1.0 / 0.6 - 0.9 cm LVPW Systolic Thickness 1.5 cm LVOT Diameter 2.0 cm LV Ejection Fraction 2D Teich 60.6 % LV Ejection Fraction MOD 2C 72.7 % LV Ejection Fraction 2C AL 73.6 % LA Diameter 3.9 cm Aorta at Sinotubular Diameter 2.2 cm IVC Diameter 1.8 cm M-MODE Aortic Annulus Diameter 3.8 cm LA Ao Ratio MM 1.1 MV E Point Septal Separation 1.8 cm DOPPLER AV Peak Velocity 231.0 cm/s LVOT Peak Velocity 101.0 cm/s AV Area Cont Eq vti 1.9 cm squared AV Area Cont Eq pk 1.4 cm squared MV Area PHT 6.3 cm squared MV E' Velocity 45.0 cm/s Mitral E to MV E' Ratio 18.9 Mitral E to LV E' Lateral Ratio 18.9 Mitral E to LV E' Septal Ratio 19.3 TR Peak Velocity 262.3 cm/s TR Peak Gradient 27.5 mmHg TV Peak E Velocity 88.0 cm/s Right Atrial Pressure 3.0 mmHg Pulmonary Artery Systolic Pressu 30.5 mmHg RV Acceleration Time 0.2 s FINDINGS Left Ventricle Left ventricle is normal size. LV systolic function is normal with EF of 55 to 60%. No regional wall motion abnormalities are seen. Grade 1 diastolic dysfunction Right Ventricle Normal in size and function Right Atrium Normal in size Left Atrium Normal in size Mitral Valve Mitral valve is thickened. Mild mitral regurgitation. Aortic Valve Aortic valve is thickened and calcified. Mild aortic stenosis with aortic valve area of 1.86cm2 and mean gradient across aortic valve of 8.4mmHg. Mild aortic regurgitation. Tricuspid Valve Mild tricuspid regurgitation. RVSP is 35-40mmHg. This is consistent with mild pulmonary hypertension Pulmonic Valve Not well visualized Pericardium Normal Aorta Normal in size IVC Appears to be normal CONCLUSIONS LV systolic function is normal with EF of 55 to 60%. Grade 1 diastolic dysfunction. Mild mitral regurgitation mild aortic stenosis with aortic valve area of 1.86 cm squared and mean gradient across aortic valve of 8.4mmHg. Mild aortic regurgitation Mild tricuspid regurgitation Mild pulmonary hypertension Compared to prior echocardiogram from 2014, no significant changes are seen. Armond Bro MD (Electronically Signed) Final Date: 02 January 2023 12:59 S
== END 2022-12-24 13:07 | disposition home or self-care (01) ==
PROVIDERS: PCP Family Medicine; Visit Provider Internal Medicine
DX: R06.02 Shortness of breath (principal)
CPT/HCPCS: 93306

== ENCOUNTER → 2023-02-18 10:19 | Outpatient (BNVA) | payer MEDICARE, SELFPAY | PROVIDERS: PCP Family Medicine; Visit Provider Family Medicine | DX: E05.90 Thyrotoxicosis, unspecified without thyrotoxic crisis or storm (principal); N28.9 Disorder of kidney and ureter, unspecified; E03.9 Hypothyroidism, unspecified | CPT/HCPCS: 80053; 84443 ==

== ENCOUNTER → 2023-05-16 11:15 | Outpatient (BNVA) | payer MEDICARE, SELFPAY | PROVIDERS: PCP Family Medicine; Visit Provider Family Medicine | DX: N28.9 Disorder of kidney and ureter, unspecified (principal); E05.90 Thyrotoxicosis, unspecified without thyrotoxic crisis or storm; R53.1 Weakness; I10 Essential (primary) hypertension; E03.9 Hypothyroidism, unspecified | CPT/HCPCS: 80053; 80178; 84443; 85025 ==

== ENCOUNTER → 2023-06-08 14:21 | Outpatient (BNVA) | payer MEDICARE, SELFPAY | PROVIDERS: PCP Family Medicine; Visit Provider Internal Medicine | DX: I10 Essential (primary) hypertension (principal); Z95.0 Presence of cardiac pacemaker; F32.89 Other specified depressive episodes | CPT/HCPCS: 99214 ==

== ENCOUNTER → 2023-08-08 09:57 | Outpatient (BNVA) | payer MEDICARE, SELFPAY | PROVIDERS: PCP Family Medicine; Visit Provider Family Medicine | DX: I10 Essential (primary) hypertension (principal); E05.90 Thyrotoxicosis, unspecified without thyrotoxic crisis or storm; N28.9 Disorder of kidney and ureter, unspecified; E03.9 Hypothyroidism, unspecified | CPT/HCPCS: 80053; 84443 ==

== ENCOUNTER → 2023-10-31 10:11 | Outpatient (BNVA) | payer MEDICARE, SELFPAY | PROVIDERS: PCP Family Medicine; Visit Provider Family Medicine | DX: E87.1 Hypo-osmolality and hyponatremia (principal); I10 Essential (primary) hypertension; N28.9 Disorder of kidney and ureter, unspecified; E05.90 Thyrotoxicosis, unspecified without thyrotoxic crisis or storm; E03.9 Hypothyroidism, unspecified | CPT/HCPCS: 80048; 80178; 84443 ==

== ENCOUNTER → 2023-12-08 11:44 | Outpatient (BNVA) | payer MEDICARE, SELFPAY | PROVIDERS: PCP Family Medicine; Visit Provider Internal Medicine | DX: I10 Essential (primary) hypertension (principal); Z95.0 Presence of cardiac pacemaker; F32.89 Other specified depressive episodes | CPT/HCPCS: 99214 ==

== ENCOUNTER → 2024-02-23 11:26 | Outpatient (BNVA) | payer MEDICARE, SELFPAY | PROVIDERS: PCP Family Medicine; Visit Provider Family Medicine | DX: I10 Essential (primary) hypertension (principal); E03.9 Hypothyroidism, unspecified; E05.90 Thyrotoxicosis, unspecified without thyrotoxic crisis or storm; N28.9 Disorder of kidney and ureter, unspecified | CPT/HCPCS: 80053; 84443 ==

== ENCOUNTER → 2024-05-08 11:09 | Outpatient (BNVA) | payer MEDICARE, SELFPAY | PROVIDERS: PCP Family Medicine; Visit Provider Family Medicine | DX: R41.0 Disorientation, unspecified (principal); I10 Essential (primary) hypertension; E05.90 Thyrotoxicosis, unspecified without thyrotoxic crisis or storm; N28.9 Disorder of kidney and ureter, unspecified; G31.83 Neurocognitive disorder with Lewy bodies; R53.1 Weakness; E03.9 Hypothyroidism, unspecified; F02.818 Dementia in other diseases classified elsewhere, unspecified severity, with other behavioral disturbance | CPT/HCPCS: 80053; 80178; 82607; 84443; 85025 ==

== ENCOUNTER → 2024-08-14 14:13 | Outpatient (BNVA) | payer MEDICARE, SELFPAY | PROVIDERS: PCP Family Medicine; Visit Provider Family Medicine | DX: E05.90 Thyrotoxicosis, unspecified without thyrotoxic crisis or storm (principal); R41.0 Disorientation, unspecified; G31.83 Neurocognitive disorder with Lewy bodies; E03.9 Hypothyroidism, unspecified | CPT/HCPCS: 80053; 82607; 84443; 85025 ==

== ENCOUNTER → 2024-08-15 13:04 | Outpatient (BNVA) | payer MEDICARE, SELFPAY | PROVIDERS: PCP Family Medicine; Visit Provider Family Medicine | DX: R41.82 Altered mental status, unspecified (principal) | CPT/HCPCS: 81000 ==

== ENCOUNTER → 2024-09-06 15:11 | Outpatient (BNVA) | payer MEDICARE, SELFPAY | PROVIDERS: PCP Family Medicine; Visit Provider Internal Medicine | DX: I10 Essential (primary) hypertension (principal); Z95.0 Presence of cardiac pacemaker; F32.89 Other specified depressive episodes | CPT/HCPCS: 99213 ==

== ENCOUNTER 2024-10-18 16:01 | Inpatient (IN) | payer MEDICARE, SELFPAY ==
--- NOTE | 2024-10-18 16:05 | ECG_ITS ---
[facility] Test Date: 2024-10-18 Pat Name: Rebecca Longoria Department: Room: Gender: Female Rehabilitation Services Manager: : 1935 Requested By: Christine Vo Order Number: [id number] Owens MD: Serge Nazario M.D. Measurements Intervals [place] Rate: 94 P: 267 TX: 271 QRS: -31 QRSD: 137 T: 152 QT: 350 QTc: 439 Interpretive Statements ELECTRONIC ATRIAL PACEMAKER LEFT AXIS DEVIATION [QRS AXIS < -30] INTRAVENTRICULAR CONDUCTION DELAY [130+ ms QRS DURATION] LEFT VENTRICULAR HYPERTROPHY AND ST-T CHANGE [VOLTAGE CRITERIA PLUS ST/T ABNORMALITY] POSSIBLE SEPTAL MYOCARDIAL INFARCTION , OF INDETERMINATE AGE [30 ms Q WAVE IN V1/V2] LATERAL MYOCARDIAL INFARCTION , OF INDETERMINATE AGE [40+ ms Q WAVE AND/OR ST/T ABNORMALITY IN I/aVL/V5/V6]. Compared to ECG 07/02/2022 06:28:40 Left ventricular hypertrophy now present.ST (T wave) deviation now present Myocardial infarct finding now present.T-wave abnormality no longer present Heavy baseline artifacts; Need to repeat the study. Electronically Signed On 10-19-2024 08:43:55 CDT by Serge Nazario M.D. [email or web address] [id number]
[2024-10-18 16:06] VITALS: BP 138/76; PULSE 82; RESP 18; TEMP 37; O2SAT 94
--- NOTE | 2024-10-18 16:11 | XRR_ITS ---
PROCEDURE INFORMATION: Exam: XR Chest Exam date and time: 10/18/2024 4:13 PM Age: 89 years old Clinical indication: Other: Weakness TECHNIQUE: Imaging protocol: Radiologic exam of the chest. Views: 1 view. COMPARISON: CR XR chest 1V portable [id number] 07/12/2021 5:46 PM FINDINGS: Tubes, catheters and devices: Pacer device noted in the left chest wall. Lungs: Unremarkable. No consolidation. Pleural spaces: Unremarkable. No pleural effusion. No pneumothorax. Heart/Mediastinum: Unremarkable. No cardiomegaly. Bones/joints: Unremarkable. XR/XR chest 1V portable [id number] IMPRESSION: No acute findings.
--- NOTE | 2024-10-18 16:11 | CTR_ITS ---
PROCEDURE INFORMATION: Exam: CT Head Without Contrast Exam date and time: 10/18/2024 4:17 PM Age: 89 years old Clinical indication: Altered mental status/memory loss; Confusion or disorientation; Additional info: Encephalopathy, altered mental status TECHNIQUE: Imaging protocol: Computed tomography of the head without contrast. Radiation optimization: All CT scans at this facility use at least one of these dose optimization techniques: automated exposure control; mA and/or kV adjustment per patient size (includes targeted exams where dose is matched to clinical indication); or iterative reconstruction. COMPARISON: CT angio headneck* [id number] 07/13/2021 3:12 PM RADIATION DOSE METRICS: Total DLP (mGy-cm): 1074.48 FINDINGS: Brain: No hemorrhage. No edema. Moderate diffuse cerebral atrophy and sequela of chronic small vessel ischemic disease. No mass effect. Cerebral ventricles: No ventriculomegaly. Paranasal sinuses: Visualized sinuses are unremarkable. No fluid levels. Mastoid air cells: Visualized mastoid air cells are well aerated. Bones: Unremarkable. No acute fracture. Soft tissues: Unremarkable. CT/CT head wo con* [id number] IMPRESSION: No acute intracranial abnormality.
--- NOTE | 2024-10-18 16:23 | W.ED.AMS ---
HPI - Altered Mental Status General: Chief Complaint: Altered Mental Status Stated Complaint: ams - weakness Time Seen by Provider: 10/18/24 16:09 History of Present Illness: 89-year-old female with a history of Lewy body dementia, hypertension, hypothyroidism, Parkinson's disease, depression and pacemaker placement who presents emergency room with concern for worsening confusion over the last 24 hours. When asked her questions she initially starts to answer appropriately but then starts saying nonsensical words. She follows commands. No facial droop. No focal motor deficits. No other complaints at this time. She has no pain complaints. No chest pain. No abdominal pain. No reports of vomiting or fevers. Related Data Home Medications ?Medication ?Instructions ?Recorded ?Confirmed folic acid 1 mg tablet 1,000 mcg PO DAILY@79907/16/19 10/18/24 levothyroxine 50 mcg capsule 50 mcg PO DAILY@79907/16/19 10/18/24 latanoprost 0.005 % eye drops 1 drp ophthalmic (eye) BEDTIME@199907/31/20 10/18/24 docusate sodium 100 mg capsule 100 mg PO DAILY PRN Constipation 07/12/21 10/18/24 amlodipine 10 mg tablet 10 mg PO DAILY 10/18/24 10/18/24 hydrocodone 5 mg-acetaminophen 325 1 tab PO BID PRN Fever Or Pain 10/18/24 10/18/24 mg tablet hydroxychloroquine 200 mg tablet 200 mg PO BID 10/18/24 10/18/24 ondansetron HCl 4 mg tablet 4 mg PO Q6H PRN Nausea And Vomiting 10/18/24 10/18/24 Previous Rx's ?Medication ?Instructions ?Recorded metoprolol tartrate 100 mg tablet 100 mg PO BID@ #0 tabs 07/15/21 lithium carbonate 300 mg capsule 300 mg PO BID@ bipoloar #180 01/27/22 caps psyllium husk 3.4 gram/5.4 gram 1 tbsp PO DAILY #660 grams 02/26/22 oral powder (Metamucil) triamcinolone acetonide 0.1 % 1 applic topical BID #30 grams 04/30/22 topical cream loratadine 10 mg tablet 10 mg PO DAILY throat pain #30 tabs 01/14/23 acetaminophen 500 mg tablet See Rx Instructions .Route 01/23/23 .COMPLEX #180 tabs lidocaine 4 % topical patch 1 patch topical DAILY PRN 02/23/24 (Salonpas (lidocaine)) shoulder/muscle pain #10 ea lidocaine 4 %-menthol 1 % topical 1 patch topical DAILY shoulder 05/08/24 patch (Icy Hot Patch pain #30 ea (lidocaine-menthol)) Allergies Allergy/AdvReac Type Severity Reaction Status Date / Time No Known Allergies Allergy Verified 09/06/24 15:33 Review of Systems Narrative: Constitutional symptoms: Negative except as documented in HPI. Skin symptoms: Negative except as documented in HPI. Eye symptoms: Negative except as documented in HPI. ENMT symptoms: Negative except as documented in HPI. Respiratory symptoms: Negative except as documented in HPI. Cardiovascular symptoms: Negative except as documented in HPI. Gastrointestinal symptoms: Negative except as documented in HPI. Genitourinary symptoms: Negative except as documented in HPI. Musculoskeletal symptoms: Negative except as documented in HPI. Neurologic symptoms: Negative except as documented in HPI. Psychiatric symptoms: Negative except as documented in HPI. Endocrine symptoms: Negative except as documented in HPI. 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 Lewy body dementia Surgical History History of bilateral knee arthroplasty S/P carpal tunnel release S/P hysterectomy S/P eye surgery S/P foot surgery S/P cardiac pacemaker procedure Family History Other CAD (coronary artery disease) Cancer Denies family history of Diabetes Hypertension Stroke Social History Smoking and tobacco/nicotine status: never used tobacco/nicotine Alcohol intake: never Substance/Drug Use: never Caregiver/support person: Yes Lives independently: No Housing: Assisted Living Facility Marital status: / Number of children: 2 Highest education level completed: Bachelor's Degree Current occupational status: 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 Skin: Warm, dry. Head: Normocephalic, atraumatic. Neck: Supple, trachea midline. Eye: Extraocular movements are intact. Ears, nose, mouth and throat: mucosa moist. Cardiovascular: Regular, Normal peripheral perfusion. Respiratory: Lungs are clear to auscultation, respirations are non-labored, breath sounds are equal, Symmetrical chest wall expansion. Gastrointestinal: Soft, Nontender, Non distended Musculoskeletal: Normal ROM, no deformity. Neurological: Alert, but not oriented. Some nonsensical speech at times. No slurred speech. No focal motor deficits. No facial droop. Psychiatric: Unable to assess Course Vital Signs: Vital signs: Vital Signs Temperature 98.6 F 10/18/24 16:06 Pulse Rate 82 10/18/24 18:55 Respiratory Rate 18 10/18/24 16:06 Blood Pressure 160/58 10/18/24 18:55 Pulse Oximetry 96 10/18/24 18:55 Oxygen Delivery Me thod Room Air 10/18/24 18:55 MDM - Altered Mental Status Medical Decision Making Medical decision making: Differential diagnosis including but not limited to and based on the above HPI, review of systems and physical exam: In this patient with altered mental status: Stroke. Hypoglycemia. Metabolic encephalopathy. Infections such as pneumonia, urinary tract infection, Covid-19, Influenza. Electrolyte abnormalities such as hypernatremia. Renal failure / uremia. Hepatic encephalopathy. Hypoxemia. Hypercapnic respiratory failure. Psychosis. Drug or alcohol intoxication. Medication overdose. Orders placed to evaluate differential diagnosis based on the above differential, HPI and physical exam Time of onset: Patient is outside the window for any sort of intervention at this time. Symptoms apparently began 24 to 48 hours ago. EKG: Time 1605. Rate 94. Normal sinus rhythm, No ST-T changes, no ectopy, paced rhythm, this was reviewed and interpreted by myself the emergency room physician at 1610. NIH Stroke Scale/Score (NIHSS) from [facility] on 10/18/2024 All calculations should be rechecked by clinician prior to use RESULT SUMMARY: 6 points NIH Stroke Scale INPUTS: 1A: Level of consciousness ?> 0 = Alert; keenly responsive 1B: Ask month and age ?> 2 = 0 questions right 1C: 'Blink eyes' & 'squeeze hands' ?> 1 = Performs 1 task 2: Horizontal extraocular movements ?> 0 = Normal 3: Visual ocampo ?> 0 = No visual loss 4: Facial palsy ?> 0 = Normal symmetry 5A: Left arm motor drift ?> 0 = No drift for 10 seconds 5B: Right arm motor drift ?> 0 = No drift for 10 seconds 6A: Left leg motor drift ?> 0 = No drift for 5 seconds 6B: Right leg motor drift ?> 0 = No drift for 5 seconds 7: Limb Ataxia ?> 0 = No ataxia 8: Sensation ?> 0 = Normal; no sensory loss 9: Language/aphasia ?> 2 = Severe aphasia: fragmentary expression, inference needed, cannot identify materials 10: Dysarthria ?> 1 = Mild-moderate dysarthria: slurring but can be understood 11: Extinction/inattention ?> 0 = No abnormality CT head: No acute intracranial process. no intracranial hemorrhage, no evidence of infarct. no evidence of acute fracture.This was reviewed and interpreted by myself the ER physician. Chest x-ray: No acute process. No infiltrate. No pneumothorax. This was reviewed and interpreted by myself the emergency room physician. I also reviewed the radiology report. I had a little concerned that her mediastinum seemed wider compared to previous this may just be technique but a CT scan was ordered. CT of the chest without contrast: No acute process. This was reviewed and interpreted by myself the emergency room physician. I also reviewed the radiology report. Lab Review: Laboratory results were reviewed and interpreted by myself the emergency room physician. Mild leukocytosis. Mild anemia compared to previous. No evidence of any acute upper GI bleeding as her BUN and creatinine are 22 and 1.4 which actually below her baseline. Urinalysis is negative for infection. I reviewed the patient's medical record. Reexamination: Patient continues to have word salad/issues with speech. She can follow commands. As the evenings, along she has become a bit more agitated as well. Family is requesting medication. I am giving her some Haldol. Given her elevated blood pressures and symptoms I think she may have had an acute stroke. She comes from assisted living and it does not seem that she could go back there now. Family is requesting admission. Consultation: I spoke with Dr. Medeiros who is on-call for the hospitalist service who agrees to admission. Assessment and plan: Metabolic encephalopathy Word salad Possible stroke Hypertension -I discussed the patient with the hospitalist on-call who is admitting the patient. - Discussed findings and plan with patient. Answered any questions. - All laboratory values were reviewed and interpreted personally by myself, the ER physician - All imaging was reviewed and interpreted personally by myself, the ER physician. - Evaluation and treatment of this problem were appropriate in the emergency setting Lab Data 10/18/24 16:40 10/18/24 16:40 Radiology Impressions Chest X-Ray 10/18/24 16:11 IMPRESSION: No acute findings. Head CT 10/18/24 16:11 IMPRESSION: No acute intracranial abnormality. Chest CT 10/18/24 16:29 IMPRESSION: No acute findings. Laboratory Results WBC 12.40 10^3/uL (3.29-11.43) H 10/18/24 16:40 RBC 3.23 10^6/uL (3.85-5.65) L 10/18/24 16:40 Hgb 9.80 g/dL (11.27-16.99) L 10/18/24 16:40 Hct 32.4 % (36-47) L 10/18/24 16:40 MCV 100.3 fl (85-98) H 10/18/24 16:40 MCH 30.3 pg (27-33) 10/18/24 16:40 MCHC 30.2 g/dL (30-55) 10/18/24 16:40 RDW 13.4 % (12.1-15.1) 10/18/24 16:40 Plt Count 213 10^3/cmm (157-399) 10/18/24 16:40 MPV 11.5 fL (7.4-10.4) H 10/18/24 16:40 Neut % (Auto) 78.7 % 10/18/24 16:40 Lymph % (Auto) 11.2 % 10/18/24 16:40 [place] % (Auto) 9.0 % 10/18/24 16:40 Eos % (Auto) 0.2 % 10/18/24 16:40 Baso % (Auto) 0.4 % 10/18/24 16:40 Neut # (Auto) 9.76 10^3/uL (1.8-7.7) H 10/18/24 16:40 Lymph # (Auto) 1.4 10^3/uL (0.8-4.8) 10/18/24 16:40 [place] # (Auto) 1.1 10^3/uL (0.2-0.9) H 10/18/24 16:40 Eos # (Auto) 0.0 10^3/uL (0.0-0.8) 10/18/24 16:40 Baso # (Auto) 0.1 10^3/uL (0.0-0.1) 10/18/24 16:40 Nucleated RBC % (auto) 0 % 10/18/24 16:40 Nucleated RBCs # 0.0 /100WBC 10/18/24 16:40 Sodium 137 mmol/L (136-145) 10/18/24 16:40 Potassium 3.8 mmol/L (3.5-5.1) 10/18/24 16:40 Chloride 105 mmol/L (98-107) 10/18/24 16:40 Carbon Dioxide 21 mmol/L (22-29) L 10/18/24 16:40 Anion Gap 14.8 (5-19) 10/18/24 16:40 BUN 22 mg/dL (8-23) 10/18/24 16:40 Creatinine 1.4 mg/dL (0.5-0.9) H 10/18/24 16:40 GFR Calculation Not Reportable 10/18/24 16:40 Glucose 102 mg/dL (65-115) 10/18/24 16:40 Calculated Osmolality 288 mOsm/kg (285-295) 10/18/24 16:40 Lactic Acid 1.4 mmol/L (0.5-2.2) 10/18/24 16:42 Calcium 9.2 mg/dL (8.5-10.5) 10/18/24 16:40 Total Bilirubin 0.5 mg/dL (0.15-1.2) 10/18/24 16:40 AST 15 U/L (0-32) 10/18/24 16:40 ALT 12 U/L (0-33) 10/18/24 16:40 Alkaline Phosphatase 75 U/L (35-105) 10/18/24 16:40 Total Protein 6.7 g/dL (6.6-8.7) 10/18/24 16:40 Albumin 3.8 g/dL (3.5-5.2) 10/18/24 16:40 Globulin 2.9 g/dL (1.3-4.6) 10/18/24 16:40 Urine Color Yellow (Yellow) 10/18/24 18:04 Urine Appearance Clear (CLEAR) 10/18/24 18:04 Urine pH 7.0 (5-7) 10/18/24 18:04 Ur Specific [place] 1.010 (1.005-1.030) 10/18/24 18:04 Urine Protein 1+ (Negative) A 10/18/24 18:04 Urine Glucose (UA) Negative (Normal) 10/18/24 18:04 Urine Ketones Negative (Negative) 10/18/24 18:04 Urine Blood 1+ (Negative) A 10/18/24 18:04 Urine Nitrate Negative (Negative) 10/18/24 18:04 Urine Bilirubin Negative (Negative) 10/18/24 18:04 Urine Urobilinogen 0.2 mg/dL (Negative) 10/18/24 18:04 Ur Leukocyte Esterase Negative (Negative) 10/18/24 18:04 Urine RBC 0-2 /hpf (0-2) 10/18/24 18:04 Urine WBC 0-5 /hpf (0-5) 10/18/24 18:04 Ur Squamous Epith Cells 0-5 /hpf (0-5) 10/18/24 18:04 Amorphous Sediment Not Reportable 10/18/24 18:04 Urine Bacteria None seen /hpf (NONE) 10/18/24 18:04 Hyaline Casts 2.87 /lpf 10/18/24 18:04 Influenza A (PCR) Negative (Negative) 10/18/24 17:55 Influenza Type B (PCR) Negative (Negative) 10/18/24 17:55 RSV (PCR) Negative (Negative) 10/18/24 17:55 SARS-CoV-2 (PCR) Negative (Negative) 10/18/24 17:55 All radiology interpretation(s) finalized by discharge Discharge Plan Discharge Patient Disposition: Admitted As Inpatient Clinical Impression: Aphasia, Hypertension, Cerebral vascular accident, Agitation Condition: Stable Coding Level of Care Code ED Aba Tutor for Daniel Pro
--- NOTE | 2024-10-18 16:29 | CTR_ITS ---
PROCEDURE INFORMATION: Exam: CT Chest Without Contrast; Diagnostic Exam date and time: 10/18/2024 4:53 PM Age: 89 years old Clinical indication: Abnormal findings; Abnormal radiologic exam of lung or chest; Prior surgery; Surgery date: 6+ months; Surgery type: Pacemaker; Additional info: Abnormal chest xray TECHNIQUE: Imaging protocol: Diagnostic computed tomography of the chest without contrast. Radiation optimization: All CT scans at this facility use at least one of these dose optimization techniques: automated exposure control; mA and/or kV adjustment per patient size (includes targeted exams where dose is matched to clinical indication); or iterative reconstruction. COMPARISON: CR XR chest 1V portable [id number] 10/18/2024 4:13 PM RADIATION DOSE METRICS: Total DLP (mGy-cm): 347.73 FINDINGS: Tubes, catheters and devices: Pacer device noted in the left chest wall. Lungs: Unremarkable. No consolidation. No masses. Pleural spaces: Unremarkable. No pneumothorax. No pleural effusion. Heart: Unremarkable. No cardiomegaly. No pericardial effusion. Lymph nodes: Unremarkable. No enlarged lymph nodes. Vasculature: Unremarkable. No aortic aneurysm. Bones/joints: Unremarkable. No acute fracture. Soft tissues: Unremarkable. CT/CT chest [facility] [id number] IMPRESSION: No acute findings.
[2024-10-18 16:58] LABS: Basophils # 0.1 10^3/uL (0.0-0.1); Basophils % 0.4 %; Eosinophils % 0.2 %; Hematocrit 32.4 % (36-47); Lymphocytes # 1.4 10^3/uL (0.8-4.8); Lymphocytes % 11.2 %; Mean Corpuscular HGB Conc 30.2 g/dL (30-55); Mean Corpuscular Hemoglobin 30.3 pg (27-33); Mean Corpuscular Volume 100.3 fl (85-98); Mean Platelet Volume 11.5 fL (7.4-10.4); Monocytes # 1.1 10^3/uL (0.2-0.9); Neutrophils # 9.76 10^3/uL (1.8-7.7); Neutrophils % 78.7 %; Nucleated Red Blood Cells % 0 %; Platelet Count 213 10^3/cmm (157-399); Red Blood Count 3.23 10^6/uL (3.85-5.65); Red Cell Distribution Width 13.4 % (12.1-15.1)
[2024-10-18 17:14] LABS: Alanine Aminotransferase 12 U/L (0-33); Albumin Level 3.8 g/dL (3.5-5.2); Alkaline Phosphatase 75 U/L (35-105); Anion Gap 14.8 (5-19); Aspartate Amino Transferase 15 U/L (0-32); Blood Urea Nitrogen 22 mg/dL (8-23); Calcium 9.2 mg/dL (8.5-10.5); Carbon Dioxide 21 mmol/L (22-29); Chloride 105 mmol/L (98-107); Globulin 2.9 g/dL (1.3-4.6); Glucose 102 mg/dL (65-115); Osmolality Calculated 288 mOsm/kg (285-295); Potassium 3.8 mmol/L (3.5-5.1); Sodium 137 mmol/L (136-145); Total Bilirubin 0.5 mg/dL (0.15-1.2); Total Protein 6.7 g/dL (6.6-8.7)
[2024-10-18 17:15] LABS: Lactic Sepsis W/Reflex 1.4 mmol/L (0.5-2.2)
[2024-10-18 18:35] LABS: Bilirubin Urine Negative (Negative); Blood Urine 1+ (Negative); Glucose Urine UA Negative (Normal); Ketones Urine Negative (Negative); Leukocyte Esterase Urine Negative (Negative); Nitrate Urine Negative (Negative); Protein Urine 1+ (Negative); Urine Appearance Clear (CLEAR); Urine Color Yellow (Yellow); Urobilinogen Urine 0.2 mg/dL (Negative)
[2024-10-18 18:40] LABS: Bacteria Urine None Seen /hpf; Hyaline Casts Urine 2.87 /lpf; RBC Urine 0-2 /hpf (0-2); Squamous Epithelial Cell Urine 0-5 /hpf (0-5); WBC Urine 0-5 /hpf (0-5)
[2024-10-18 18:55] VITALS: BP 160/58; PULSE 82; O2SAT 96
[2024-10-18 18:56] LABS: Add Urine Culture? No
[2024-10-18] MEDS: haloperidol inj 5 mg/mL INJ 1 mL IVP (19:01)
[2024-10-18 19:05] LABS: Influenza A NEGATIVE (Negative); Influenza B NEGATIVE (Negative); Respiratory Syncytial Virus Ce NEGATIVE (Negative); SARS-CoV-2 PCR NEGATIVE (Negative)
[2024-10-18] MEDS: water for injection-sterile 10 ML 2.1 ML (20:33)
[2024-10-18] MEDS: OLANZapine 10 mg VIAL 5 MG IM (20:33)
[2024-10-18 20:52] VITALS: BP 150/82; PULSE 74; RESP 15; TEMP 37.9; O2SAT 93
--- NOTE | 2024-10-18 20:52 | P.HP_ITS ---
Providers/Chief Complaint 2 Admitting Physician: Chilango Villarreal MD Primary Care Provider: Johnnie aTm DO Chief Complaint: ams - weakness History of Present Illness Rebecca Longoria is a 89 year old female who with a past medical history of dementia, Parkinson's disease, hypertension, hyperlipidemia, who presents [facility] from [facility] for concerns for acute on chronic confusion. According to family patient has had a gradual decline over the last few months, she used to ambulate, she can recognize family members, she could feed herself but she has had a decline over the last few months. But more rapid deterioration in the last few days. According to family numbers she has had increased confusion, increased agitation at times, word salad, word finding difficulty, no reported facial droop, no known focal weakness, or slurring of her words, no known falls, currently patient is alert to person, not to place, not to time, she is quite easily agitated, she tells me she wants to be left alone, she is moving bilateral upper and lower extremities, no facial droop, I cannot discern any slurring of words, Review of Systems 2 General: Reports: ROS unobtainable due to mental status Medications/Allergies Home Medications ?Medication ?Instructions ?Recorded ?Confirmed ?Last Taken ?Type folic acid 1 mg tablet 1,000 mcg PO DAILY@07/0410/18/24 10/18/24 History levothyroxine 50 mcg capsule 50 mcg PO DAILY@07/0410/18/24 10/18/24 History latanoprost 0.005 % eye drops 1 drp ophthalmic (eye) B EDTIME@199907/31/20 10/18/24 10/17/24 History docusate sodium 100 mg capsule 100 mg PO DAILY PRN Con stipation 07/12/21 10/18/24 Unknown History metoprolol tartrate 100 mg tablet 100 mg PO BID@ #0 tabs 07/15/21 10/18/24 10/18/24 08:00 Rx lithium carbonate 300 mg capsule 300 mg PO BID@ b ipoloar #180 01/27/22 10/18/24 10/18/24 Rx caps psyllium husk 3.4 gram/5.4 gram 1 tbsp PO DAILY #660 g althea 02/26/22 10/18/24 Unknown Rx oral powder (Metamucil) triamcinolone acetonide 0.1 % 1 applic topical BID #30 grams 04/30/22 10/18/24 Unknown Rx topical cream loratadine 10 mg tablet 10 mg PO DAILY throat pain # 30 tabs 01/14/23 10/18/24 10/18/24 Rx acetaminophen 500 mg tablet See Rx Instructions .Route 01/23/23 10/18/24 10/17/24 Rx .COMPLEX #180 tabs lidocaine 4 % topical patch 1 patch topical DAILY PRN 02/23/24 10/18/24 10/17/24 Rx (Salonpas (lidocaine)) shoulder/muscle pain #10 ea lidocaine 4 %-menthol 1 % topical 1 patch topical DAMEON Y shoulder 05/08/24 10/18/24 10/17/24 Rx patch (Icy Hot Patch pain #30 ea (lidocaine-menthol)) amlodipine 10 mg tablet 10 mg PO DAILY 10/18/2410/0210/18/24 History hydrocodone 5 mg-acetaminophen 325 1 tab PO BID PRN Fe kaley Or Pain 10/18/24 10/18/24 10/17/24 History mg tablet hydroxychloroquine 200 mg tablet 200 mg PO BID 5 10/18/24 10/18/24 History ondansetron HCl 4 mg tablet 4 mg PO Q6H PRN Nausea And Vomiting 10/18/24 10/18/24 Unknown History Allergies Allergy/AdvReac Type Severity Reaction Status Date / Time No Known Allergies Allergy Verified 09/06/24 15:33 PFSH Acute 2 PFSH: Medical History Hypertension Long-term use of hydroxychloroquine for treatment of unclear diagnosis Hypothyroidism Parkinsonism associated with Lewy Body Dementia Depression 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 Glaucoma 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 Lewy body dementia Surgical History History of bilateral knee arthroplasty S/P carpal tunnel release S/P hysterectomy S/P eye surgery S/P foot surgery S/P cardiac pacemaker procedure Family History Other CAD (coronary artery disease) Cancer Denies family history of Diabetes Hypertension Stroke Social History Smoking and tobacco/nicotine status: never used tobacco/nicotine Alcohol intake: never Substance/Drug Use: never Caregiver/support person: Yes Lives independently: No Housing: Assisted Living Facility Marital status: / Number of children: 2 Highest education level completed: Bachelor's Degree Current occupational status: 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 Do you think of yourself as: Straight/Heterosexual Current gender identity: Female Vitals/I&O/Wt Last Vital Signs Temp 98.6 F 10/18/24 16:06 Pulse 82 10/18/24 18:55 Resp 18 10/18/24 16:06 BP 160/58 10/18/24 18:55 Pulse Ox 96 10/18/24 18:55 O2 Del Method Room Air 10/18/24 18:55 Physical Exam 2 Const: COMMON NORMALS: no acute distress HENMT: COMMON NORMALS: normocephalic HEAD & SCALP: normocephalic Neck/C-Spine: COMMON NORMALS: no JVD Resp: COMMON NORMALS: normal respiratory effort, No retractions, No use of accessory muscles and clear to auscultation bilaterally AUSCULTATION: clear to auscultation bilaterally Cardio: COMMON NORMALS: regular rate, regular rhythm, S1 normal heart sound present and S2 normal heart sound present RATE: regular rate RHYTHM: r egular rhythm HEART SOUNDS: S1 normal heart sound present and S2 normal heart sound present GI: COMMON NORMALS: Normal to inspection, nondistended, normoactive bowel sounds present, Soft to palpation, non-tender, No hepatosplenomegaly present, no masses and no bruits PALPATION: Yes Soft to palpation and Yes No hepatosplenomegaly present Extremity: COMMON NORMALS: no calf tenderness and no pedal edema Neuro: OTHER: Does not follow neurologic testing, is easily agitated, does move bilateral upper and lower extremities Data 10/18/24 16:40 10/18/24 16:40 Micro: Microbiology 10/18/24 16:42 Blood Culture - Preliminary Blood SPECIMEN COLLECTED 10/18/24 16:40 Blood Culture - Preliminary Blood SPECIMEN COLLECTED A&P Assessment and plan (1) Hypertension: Qualifiers: Hypertension type: primary hypertension Qualified Code(s): I10 - Essential (primary) hypertension (2) Presence of permanent cardiac pacemaker: (3) Cerebral vascular accident: (4) Acute encephalopathy: (5) Bipolar 1 disorder: Plan Acute encephalopathy - With underlying dementia - With underlying Parkinson's disease - UA negative for UTI - Chest x-ray no focal pneumonia - CT head no acute findings concerns for possible CVA? NIH stroke scale difficult to assess given her global encephalopathy, difficulty following commands but does have word finding difficulty according to family, upon admission it was 6, symptom onset over 48 hours ago, out of tPA window - Possible progression of underlying dementia/Parkinson's disease Plan - Will monitor closely - Neurochecks - NIH stroke scale - Aspiration precautions - Aspirin, statin -Allow for permissive hypertension - Cardiac echo, carotid ultrasound, telemetry monitoring, -Check lithium levels -Pro-Felipe, CRP, sed rate -Check TSH -Zyprexa as needed for agitation -Ativan as needed for agitation - Monitor mentation closely - Dysphagia eval, PT OT - Lovenox for DVT prophylaxis - CODE STATUS, discussed with patient's son who is patient's healthcare power of commercial litigation attorney, discussed CODE STATUS, he would like Rebecca to be DNR/DNI PDMP PDMP Reviewed: Not Reviewed Attestations 2 Medical Necessity Statement*: Patient requires hospitalization, inpatient, greater than 2 midnights, for acute encephalopathy, concerns for acute CVA Diagnoses Primary hypertension I10 Hypertension type: primary hypertension Presence of permanent cardiac pacemaker Z95.0 Cerebral vascular accident I63.9 Acute encephalopathy G93.40 Bipolar 1 disorder F31.9
--- NOTE | 2024-10-18 20:52 | USCV_ITS ---
Rebecca Longoria Age: 89 Gender: F : 1935 Exam Date: 10/18/2024 23:28 Ordering Phys: Chilango Villarreal MD Technologist: TIM Exam Location: [facility] [place] Indication: AMS, dementia, Parkinson's, HTN, HL. Patient had to be restrained by nursing staff in order to complete this exam. Risk Factors: AMS, dementia, Parkinson's, HTN, HL. Patient had to be restrained by nursing staff in order to complete this exam Previous Vascular Surgery: unknown Right Brachial BP: 150 / 82 Left Brachial BP: / Right Left Velocity (cm/s) Spectral Plaque Velocity (cm/s) Spectral Plaque Syst/Diast Broadening Syst/Diast Broadening 107.40/20.60 Min Homo Prox CCA 61.10 / 19.70 Min Homo 103.50/18.00 Min Hetro Mid CCA 62.80 / 14.20 Min Hetro 78.90/ 19.30 Min Felipe Distal CCA 58.90 / 17.70 Min Felipe 81.50/ 11.50 Min Hetro Prox ICA 62.50 / 13.30 Min Felipe 54.30/ 14.10 Min Hetro Mid ICA 78.90 / 19.90 Min Hetro 66.70/ 19.20 Min Homo Distal ICA 105.50/ 16.00 Min Hetro 91.90 None Felipe ECA 98.20 Min Felipe 1.00 ICA/CCA 1.80 Antegrade Vertebral Antegrade 57.90/ 19.80 cm/s 63.30/ 14.30 cm/s Tri Subclavian Tri 71.90 148.6 0 FINDINGS Comparison: none available. No significant elevation of systolic or diastolic velocities. Waveforms are normal. Mild carotid atherosclerosis. CONCLUSIONS Bilateral ICA stenosis less than 50%. Mild diffuse carotid atherosclerosis. Dr. Louise Fair DO (Electronically Signed) Final Date: 19 October 2024 07:51 S
--- NOTE | 2024-10-18 20:52 | USCV_ITS ---
Rebecca Longoria Age: 89 Gender: F : 1935 Exam Date: 10/18/2024 23:57 Ordering Phys: Chilango Villarreal MD Technologist: TIM Exam Location: [facility] [place] Indication: AMS, dementia, Parkinson's, HTN, HL. Patient had to be restrained by nursing staff in order to complete this study. BP: 150 / 82 HR: 76 Rhythm: Sinus Technical Quality: Adequate MEASUREMENTS (Male / Female) Normal Values 2D ECHO LV Diastolic Diameter PLAX 4.1 cm 4.2 - 5.9 / 3.9 - 5.3 cm IVS Diastolic Thickness 1.5 cm 0.6 - 1.0 / 0.6 - 0.9 cm IVS Systolic Thickness 1.6 cm LVPW Diastolic Thickness 1.2 cm 0.6 - 1.0 / 0.6 - 0.9 cm LVPW Systolic Thickness 2.0 cm LVOT Diameter 1.7 cm LV Ejection Fraction 2D Teich 68.2 % LV Ejection Fraction MOD 4C 48.8 % LV Ejection Fraction MOD 2C 51.2 % LV Ejection Fraction 2C AL 53.3 % LA Diameter 3.0 cm Aorta at Sinotubular Diameter 2.5 cm IVC Diameter 1.3 cm M-MODE LA Ao Ratio MM 1.0 AV Cusp Separation MM 1.7 cm DOPPLER AV Peak Velocity 278.0 cm/s LVOT Peak Velocity 112.0 cm/s AV Area Cont Eq vti 0.9 cm squared AV Area Cont Eq pk 0.9 cm squared MV Peak Velocity 163.0 cm/s MV Area PHT 3.8 cm squared Mitral E to A Ratio 0.6 TR Peak Velocity 303.0 cm/s TR Peak Gradient 36.7 mmHg TV Peak E Velocity 62.0 cm/s PV Peak Velocity 136.0 cm/s FINDINGS Left Ventricle Normal LV size with slightly diminished ejection fraction of 51%. Mild diffuse hypokinesis of the left ventricle.mild left ventricular hypertrophy. Grade I/IV diastolic dysfunction (abnormal relaxation filling pattern), normal to mildly elevated filling pressures. Right Ventricle The right ventricle is normal in size and function. Right Atrium Catheter/pacemaker wire in the right atrial cavity. Left Atrium Mildly increased left atrial size. Mitral Valve Moderate mitral annular calcification. Thickened mitral valve. Trace mitral valve regurgitation. Aortic Valve Moderate aortic valve calcification. Mild aortic valve regurgitation. Severe low gradient, possible normal flow aortic valve stenosis, mean gradient 14.3 mmHg, DIDIER 0.88 cm squared. Peak velocity of 2.78 m/s, with a peak gradient of 31 mm of Hg Tricuspid Valve No gross abnormalities noted Pulmonic Valve Pulmonic valve not well visualized. Pericardium No pericardial effusion. Aorta Normal aorta size at the level of the sinus of valsalva. IVC Normal inferior vena cava. CONCLUSIONS Normal LV size with slightly diminished ejection fraction of 51%. Mild diffuse hypokinesis of the left ventricle.mild left ventricular hypertrophy. Grade I/IV diastolic dysfunction (abnormal relaxation filling pattern), normal to mildly elevated filling pressures. Mildly increased left atrial size. Moderate mitral annular calcification. Thickened mitral valve. Trace mitral valve regurgitation. Moderate aortic valve calcification. Mild aortic valve regurgitation. Severe low gradient, possible normal flow aortic valve stenosis, mean gradient 14.3 mmHg, DIDIER 0.88 cm squared. Peak velocity of 2.78 m/s, with a peak gradient of 31 mm of Hg There is no pericardial effusion. There are no intracardiac masses. Compared to the study from 12/24/2022, there is some worsening of the aortic valve stenosis Dr Serge Nazario MD FAC (Electronically Signed) Final Date: 19 October 2024 10:37 S
[2024-10-18 21:08] VITALS: BMI 30.2
[2024-10-18] MEDS: pantoprazole 40 mg SDV IVP (21:20)
[2024-10-18] MEDS: enoxaparin 40 mg/0.4 mL Syringe SUBCUT (21:20)
[2024-10-18] MEDS: sodium chloride 0.9% 1,000 ML 75 ML IV (21:20)
[2024-10-18] MEDS: aspirin 81 mg EC Tablet PO (21:20)
[2024-10-18] MEDS: atorvastatin 40 mg Tablet PO (21:20)
[2024-10-18 22:23] LABS: Erythrocyte Sedimentation Rate 30 mm/hr (0-15)
[2024-10-18 22:25] LABS: Thyroid Stimulating Hormone 1.34 uIU/mL (0.27-4.20)
[2024-10-18 22:36] LABS: C Reactive Protein 203.2 mg/L (0.0-4.9)
[2024-10-18] MEDS: LORazepam 2 mg/mL INJ 1 mL 1 MG IVP (22:39)
[2024-10-19 01:45] VITALS: BP 119/64; PULSE 81; RESP 17; TEMP 36.7; O2SAT 94
[2024-10-19 05:35] LABS: Alanine Aminotransferase 11 U/L (0-33); Albumin Level 3.5 g/dL (3.5-5.2); Alkaline Phosphatase 79 U/L (35-105); Aspartate Amino Transferase 18 U/L (0-32); Blood Urea Nitrogen 17 mg/dL (8-23); Calcium 9.2 mg/dL (8.5-10.5); Carbon Dioxide 16 mmol/L (22-29); Chloride 113 mmol/L (98-107); Creatinine Clr Calc Pharmacy 36.7341; Globulin 3.2 g/dL (1.3-4.6); Glucose 101 mg/dL (65-115); Osmolality Calculated 296 mOsm/kg (285-295); Sodium 142 mmol/L (136-145); Total Bilirubin 0.8 mg/dL (0.15-1.2); Total Protein 6.7 g/dL (6.6-8.7)
[2024-10-19 05:37] VITALS: BP 143/52; PULSE 73; RESP 17; TEMP 37; O2SAT 92; BMI 30.1
[2024-10-19 05:57] LABS: Basophils # 0.1 10^3/uL (0.0-0.1); Basophils % 0.6 %; Eosinophils # 0.1 10^3/uL (0.0-0.8); Eosinophils % 1.1 %; Hematocrit 30.1 % (36-47); Lymphocytes % 11.5 %; Mean Corpuscular HGB Conc 31.6 g/dL (30-55); Mean Corpuscular Volume 98.4 fl (85-98); Monocytes # 0.8 10^3/uL (0.2-0.9); Monocytes % 9.8 %; Neutrophils # 6.54 10^3/uL (1.8-7.7); Neutrophils % 76.5 %; Nucleated Red Blood Cells % 0 %; Platelet Count 189 10^3/cmm (157-399); Red Blood Count 3.06 10^6/uL (3.85-5.65); Red Cell Distribution Width 13.3 % (12.1-15.1); White Blood Count 8.54 10^3/uL (3.29-11.43)
[2024-10-19 07:27] VITALS: BP 117/67; PULSE 72; RESP 17; TEMP 36.8; O2SAT 91
[2024-10-19] MEDS: aspirin 81 mg EC Tablet PO (09:31)
[2024-10-19] MEDS: folic acid 1 mg Tablet PO (09:31)
[2024-10-19] MEDS: lithium carbonate 300 mg Capsule PO ×2 (09:31→19:14)
[2024-10-19] MEDS: levothyroxine 50 mcg Tablet PO (09:32)
[2024-10-19] MEDS: sodium chloride 0.9% 1,000 ML 75 ML IV ×2 (09:33→22:24)
--- NOTE | 2024-10-19 10:03 | PC.SOCIAL ---
IMM Update pg 2 of IMM Updated and reviewed w/ patients DPOA and placed in chart. Copy dated, initialed and placed in chart. Copy left @ bedside.
--- NOTE | 2024-10-19 11:05 | PC.NURSE ---
clinical research nurse coordinator rounds @ 1005- patient working with PT in the room, family was present, gave them stroke education handbook
[2024-10-19 12:26] VITALS: BP 126/72; PULSE 70; RESP 19; TEMP 36.8; O2SAT 94
--- NOTE | 2024-10-19 13:39 | P.PN_ITS ---
Subjective 2 Subjective: Seen her at bedside this morning. Denies any acute complaints at this time. Family present at bedside, inform about the plan of care. PT at bedside. Medications: Reviewed: Yes Vitals/I&O/Wt Last Vital Signs Temp 98.3 F 10/19/24 12:26 Pulse 70 10/19/24 12:26 Resp 19 H 10/19/24 12:26 BP 126/72 10/19/24 12:26 Pulse Ox 94 10/19/24 12:26 O2 Del Method Room Air 10/19/24 12:26 10/18/24 10/19/24 10/19/24 22:59 06:59 14:59 Intake Total 100 / 100 100 / 200 1046.25 / 1046.25 Balance 100 / 100 100 / 200 1046.25 / 1046.25 Weight last 48 hrs Weight 82.1 kg Weight 82.282 kg Physical Exam 2 Const: COMMON NORMALS: no acute distress HENMT: COMMON NORMALS: normocephalic HEAD & SCALP: normocephalic Neck/C-Spine: COMMON NORMALS: no JVD Resp: COMMON NORMALS: normal respiratory effort, No retractions, No use of accessory muscles and clear to auscultation bilaterally AUSCULTATION: clear to auscultation bilaterally Cardio: COMMON NORMALS: no JVD, regular rate, regular rhythm, S1 normal heart sound present and S2 normal heart sound present RATE: regular rate RHYTHM: regular rhythm HEART SOUNDS: S1 normal heart sound present and S2 normal heart sound present GI: COMMON NORMALS: Normal to inspection, nondistended, normoactive bowel sounds present, Soft to palpation, non-tender, No hepatosplenomegaly present, no masses and no bruits PALPATION: Yes Soft to palpation and Yes No hepatosplenomegaly present Extremity: COMMON NORMALS: no calf tenderness and no pedal edema Neuro: OTHER: Does not follow neurologic testing, is easily agitated, does move bilateral upper and lower extremities Data 10/19/24 05:47 10/19/24 04:54 Micro: Microbiology 10/18/24 16:42 Blood Culture - Preliminary Blood SPECIMEN COLLECTED 10/18/24 16:40 Blood Culture - Preliminary Blood SPECIMEN COLLECTED A&P Assessment and plan (1) Hypertension: Qualifiers: Hypertension type: primary hypertension Qualified Code(s): I10 - Essential (primary) hypertension (2) Presence of permanent cardiac pacemaker: (3) Cerebral vascular accident: (4) Acute encephalopathy: (5) Bipolar 1 disorder: Plan 89 year old female who with a past medical history of dementia, Parkinson's disease, hypertension, hyperlipidemia, who presents [facility] from [facility] for concerns for acute on chronic confusion. Acute encephalopathy - With underlying dementia - With underlying Parkinson's disease - UA negative for UTI - Chest x-ray no focal pneumonia resp panel negative - CT head no acute findings concerns for possible CVA? NIH stroke scale difficult to assess given her global encephalopathy, difficulty following commands but does have word finding difficulty according to family, upon admission it was 6, symptom onset over 48 hours ago, out of tPA window - Possible progression of underlying dementia/Parkinson's disease Plan - Will monitor closely - Neurochecks - NIH stroke scale - Aspiration precautions - Aspirin, statin -Allow for permissive hypertension - Cardiac echo, carotid ultrasound, telemetry monitoring, -Check lithium levels -Pro-Felipe, CRP, sed rate -Check TSH -Zyprexa as needed for agitation -Ativan as needed for agitation - Monitor mentation closely - Dysphagia eval, PT OT - Lovenox for DVT prophylaxis - CODE STATUS, discussed with patient's son who is patient's healthcare power of deputy county attorney, discussed CODE STATUS, he would like Rebecca to be DNR/DNI 10/19/24 [place] level normal. Acute on chronic confusion likely secondary to worsening dementia in view of Parkinson's disease. Infectious workup negative. CT head negative for acute stroke. She will follow-up PT. Follow-up case management for discharge planning. PDMP PDMP Reviewed: Not Reviewed Attestations 2 Medical Necessity Statement*: Patient requires hospitalization, inpatient, greater than 2 midnights, for acute encephalopathy, Time Spent in Patient Care: 20minutes Coding Level of Care Code Acute Code for Chg Fwd Diagnoses Primary hypertension I10 Hypertension type: primary hypertension Presence of permanent cardiac pacemaker Z95.0 Cerebral vascular accident I63.9 Acute encephalopathy G93.40 Bipolar 1 disorder F31.9 Time Spent (min) 20
[2024-10-19 15:43] VITALS: BP 130/74; PULSE 69; RESP 18; TEMP 37.1; O2SAT 90
[2024-10-19 19:52] VITALS: BP 132/66; PULSE 78; RESP 17; TEMP 37; O2SAT 93
[2024-10-19] MEDS: atorvastatin 40 mg Tablet PO (19:58)
[2024-10-19] MEDS: enoxaparin 40 mg/0.4 mL Syringe SUBCUT (19:58)
[2024-10-19] MEDS: pantoprazole 40 mg SDV IVP (19:58)
[2024-10-20] VITALS (7 sets, daily range): BP systolic 128–162; BP diastolic 54–86; PULSE 72–120; RESP 16–19; TEMP 36.4–37.2; O2SAT 92–96
[2024-10-20 05:33] LABS: Basophils % 0.5 %; Eosinophils # 0.2 10^3/uL (0.0-0.8); Eosinophils % 2.5 %; Lymphocytes # 1.4 10^3/uL (0.8-4.8); Mean Corpuscular HGB Conc 30.3 g/dL (30-55); Mean Corpuscular Hemoglobin 31.1 pg (27-33); Mean Corpuscular Volume 102.6 fl (85-98); Mean Platelet Volume 11.8 fL (7.4-10.4); Monocytes # 0.8 10^3/uL (0.2-0.9); Monocytes % 9.1 %; Neutrophils # 6.18 10^3/uL (1.8-7.7); Neutrophils % 71.6 %; Nucleated Red Blood Cells % 0 %; Platelet Count 179 10^3/cmm (157-399); Red Blood Count 3.12 10^6/uL (3.85-5.65); Red Cell Distribution Width 13.5 % (12.1-15.1); White Blood Count 8.64 10^3/uL (3.29-11.43)
[2024-10-20 06:03] LABS: Anion Gap 12.7 (5-19); Blood Urea Nitrogen 12 mg/dL (8-23); Calcium 8.8 mg/dL (8.5-10.5); Carbon Dioxide 18 mmol/L (22-29); Chloride 113 mmol/L (98-107); Creatinine Clr Calc Pharmacy 33.6364; Glucose 106 mg/dL (65-115); Osmolality Calculated 290 mOsm/kg (285-295); Potassium 3.7 mmol/L (3.5-5.1); Sodium 140 mmol/L (136-145)
[2024-10-20] MEDS: folic acid 1 mg Tablet PO (08:59)
[2024-10-20] MEDS: levothyroxine 50 mcg Tablet PO (08:59)
[2024-10-20] MEDS: aspirin 81 mg EC Tablet PO (08:59)
[2024-10-20] MEDS: LORazepam 2 mg/mL INJ 1 mL 1 MG IVP (09:04)
[2024-10-20] MEDS: lithium carbonate 300 mg Capsule PO ×2 (09:18→20:05)
[2024-10-20] MEDS: sodium chloride 0.9% 1,000 ML 75 ML IV (11:59)
[2024-10-20] MEDS: OLANZapine 10 mg VIAL 5 MG IM (13:24)
--- NOTE | 2024-10-20 13:24 | P.PN_ITS ---
Subjective 2 Subjective: No acute overnight events noted. Seen at bedside this morning. Still seems to be confused, trying to get out of bed. Sitter at bedside. Has been on comprehensive with irrelevant speech. She is oriented to self only Medications: Reviewed: Yes Vitals/I&O/Wt Last Vital Signs Temp 97.6 F 10/20/24 11:32 Pulse 84 10/20/24 11:32 Resp 18 10/20/24 11:32 BP 147/79 10/20/24 11:32 Pulse Ox 96 10/20/24 11:32 O2 Del Method Room Air 10/20/24 11:32 10/19/24 10/20/24 10/20/24 22:59 06:59 14:59 Intake Total 1323.75 / 2370.00 1180 / 1180 Balance 1323.75 / 2370.00 1180 / 1180 Weight last 48 hrs Weight 82.962 kg Weight 82.1 kg Weight 82.282 kg Physical Exam 2 Const: COMMON NORMALS: no acute distress HENMT: COMMON NORMALS: normocephalic HEAD & SCALP: normocephalic Neck/C-Spine: COMMON NORMALS: no JVD Resp: COMMON NORMALS: normal respiratory effort, No retractions, No use of accessory muscles and clear to auscultation bilaterally AUSCULTATION: clear to auscultation bilaterally Cardio: COMMON NORMALS: no JVD, regular rate, regular rhythm, S1 normal heart sound present and S2 normal heart sound present RATE: regular rate RHYTHM: regular rhythm HEART SOUNDS: S1 normal heart sound present and S2 normal heart sound present GI: COMMON NORMALS: Normal to inspection, nondistended, normoactive bowel sounds present, Soft to palpation, non-tender, No hepatosplenomegaly present, no masses and no bruits PALPATION: Yes Soft to palpation and Yes No hepatosplenomegaly present Extremity: COMMON NORMALS: no calf tenderness and no pedal edema Neuro: OTHER: Does not follow neurologic testing, is easily agitated, does move bilateral upper and lower extremities Data 10/20/24 04:40 10/20/24 04:40 Micro: Microbiology 10/18/24 16:42 Blood Culture - Preliminary Blood NEGATIVE TO DATE 10/18/24 16:40 Blood Culture - Preliminary Blood NEGATIVE TO DATE A&P Assessment and plan (1) Hypertension: Qualifiers: Hypertension type: primary hypertension Qualified Code(s): I10 - Essential (primary) hypertension (2) Presence of permanent cardiac pacemaker: (3) Cerebral vascular accident: (4) Acute encephalopathy: (5) Bipolar 1 disorder: Plan 89 year old female who with a past medical history of dementia, Parkinson's disease, hypertension, hyperlipidemia, who presents [facility] living [facility] for concerns for acute on chronic confusion. Acute encephalopathy - With underlying dementia - With underlying Parkinson's disease - UA negative for UTI - Chest x-ray no focal pneumonia resp panel negative - CT head no acute findings concerns for possible CVA? NIH stroke scale difficult to assess given her global encephalopathy, difficulty following commands but does have word finding difficulty according to family, upon admission it was 6, symptom onset over 48 hours ago, out of tPA window - Possible progression of underlying dementia/Parkinson's disease Plan - Will monitor closely - Neurochecks - NIH stroke scale - Aspiration precautions - Aspirin, statin -Allow for permissive hypertension - Cardiac echo, carotid ultrasound, telemetry monitoring, -Check lithium levels -Pro-Felipe, CRP, sed rate -Check TSH -Zyprexa as needed for agitation -Ativan as needed for agitation - Monitor mentation closely - Dysphagia eval, PT OT - Lovenox for DVT prophylaxis - CODE STATUS, discussed with patient's son who is patient's healthcare power of staff attorney, discussed CODE STATUS, he would like Rebecca to be DNR/DNI 10/19/24 [place] level normal. Acute on chronic confusion likely secondary to worsening dementia in view of Parkinson's disease. Infectious workup negative. CT head negative for acute stroke. She will follow-up PT. Follow-up case management for discharge planning. 10/20/24 Patient lives in assisted living and has been having worsening confusion likely secondary to worsening dementia and Parkinson's disease. Would need long-term care home facility Awaiting social work for discharge planning. PDMP PDMP Reviewed: Not Reviewed Attestations 2 Medical Necessity Statement*: 15 minute Coding Level of Care Code Acute Code for Chg Fwd Diagnoses Primary hypertension I10 Hypertension type: primary hypertension Presence of permanent cardiac pacemaker Z95.0 Cerebral vascular accident I63.9 Acute encephalopathy G93.40 Bipolar 1 disorder F31.9 Time Spent (min) 15
--- NOTE | 2024-10-20 13:52 | PC.PT ---
EARTH MOVING MACHINE OPERATOR checked in with Patient at 13:45 today 10/20/24 and nurse turned EARTH MOVING MACHINE OPERATOR away due to patient receiving a shot at 13:30 for agitation and restlessness. Nurse advised EARTH MOVING MACHINE OPERATOR that patient had been unpleasant and uncooperative with nursing staff and would not be a good candidate for PT today.
[2024-10-20] MEDS: LORazepam 2 mg/mL INJ 1 mL 0.5 MG IVP (15:58)
[2024-10-20] MEDS: enoxaparin 40 mg/0.4 mL Syringe SUBCUT (20:05)
[2024-10-20] MEDS: atorvastatin 40 mg Tablet PO (20:05)
[2024-10-20] MEDS: pantoprazole 40 mg SDV IVP (20:05)
[2024-10-21] VITALS (12 sets, daily range): BP systolic 109–177; BP diastolic 50–76; PULSE 69–92; RESP 18; TEMP 36.9–37.3; O2SAT 87–97
[2024-10-21] MEDS: LORazepam 2 mg/mL INJ 1 mL 1 MG IVP (01:16)
[2024-10-21] MEDS: sodium chloride 0.9% 1,000 ML 75 ML IV ×2 (01:16→14:47)
[2024-10-21] MEDS: levothyroxine 50 mcg Tablet PO (07:48)
[2024-10-21] MEDS: lithium carbonate 300 mg Capsule PO ×2 (07:48→20:57)
[2024-10-21] MEDS: aspirin 81 mg EC Tablet PO (07:49)
[2024-10-21] MEDS: folic acid 1 mg Tablet PO (07:49)
[2024-10-21 09:07] LABS: Bilirubin Urine Negative (Negative); Blood Urine 3+ (Negative); Glucose Urine UA Negative (Normal); Ketones Urine Negative (Negative); Leukocyte Esterase Urine 3+ (Negative); Nitrate Urine Negative (Negative); Protein Urine 2+ (Negative); Specific Gravity, Urine 1.008 (1.005-1.030); Urine Appearance Turbid (CLEAR)
[2024-10-21 09:10] LABS: Add Urine Microscopic? YES; Bacteria Urine 4+ /hpf; Hyaline Casts Urine 0-4 /lpf; RBC Urine >100 /hpf (0-2); Squamous Epithelial Cell Urine 0-5 /hpf (0-5); WBC Urine >100 /hpf (0-5)
[2024-10-21 09:19] LABS: Add Urine Culture? Yes; UA Slide Review UA Slide Review Perf; Urine Color Orange (Yellow)
--- NOTE | 2024-10-21 11:26 | P.PN_ITS ---
Subjective 2 Subjective: No acute overnight events noted. Seen at bedside this morning. Still seems to be confused, trying to get out of bed. Sitter at bedside. Has been on comprehensive with irrelevant speech. She is oriented to self only Medications: Reviewed: Yes Vitals/I&O/Wt Last Vital Signs Temp 98.6 F 10/21/24 11:23 Pulse 79 10/21/24 11:23 Resp 18 10/21/24 11:23 BP 177/76 10/21/24 11:23 Pulse Ox 93 10/21/24 11:23 O2 Del Method Room Air 10/21/24 11:23 10/20/24 10/21/24 10/21/24 22:59 06:59 14:59 Intake Total 996.25 / 2176.25 120 / 120 Output Total 780 / 780 Balance 996.25 / 2176.25 -660 / -660 Weight last 48 hrs Weight 84.912 kg Weight 82.962 kg Physical Exam 2 Const: COMMON NORMALS: no acute distress HENMT: COMMON NORMALS: normocephalic HEAD & SCALP: normocephalic Neck/C-Spine: COMMON NORMALS: no JVD Resp: COMMON NORMALS: normal respiratory effort, No retractions, No use of accessory muscles and clear to auscultation bilaterally AUSCULTATION: clear to auscultation bilaterally Cardio: COMMON NORMALS: no JVD, regular rate, regular rhythm, S1 normal heart sound present and S2 normal heart sound present RATE: regular rate RHYTHM: regular rhythm HEART SOUNDS: S1 normal heart sound present and S2 normal heart sound present GI: COMMON NORMALS: Normal to inspection, nondistended, normoactive bowel sounds present, Soft to palpation, non-tender, No hepatosplenomegaly present, no masses and no bruits PALPATION: Yes Soft to palpation and Yes No hepatosplenomegaly present Extremity: COMMON NORMALS: no calf tenderness and no pedal edema Neuro: OTHER: Does not follow neurologic testing, is easily agitated, does move bilateral upper and lower extremities Urinary Catheter Management: Day Latex: Cath Placed During This Visit: yes Urinary Catheter Date of Insertion: 10/21/24 Urinary Catheter Time of Insertion: 08:40 Data 10/20/24 04:40 10/20/24 04:40 A&P Assessment and plan (1) Hypertension: Qualifiers: Hypertension type: primary hypertension Qualified Code(s): I10 - Essential (primary) hypertension (2) Presence of permanent cardiac pacemaker: (3) Cerebral vascular accident: (4) Acute encephalopathy: (5) Bipolar 1 disorder: Plan 89 year old female who with a past medical history of dementia, Parkinson's disease, hypertension, hyperlipidemia, who presents [facility] from [facility] living [facility] for concerns for acute on chronic confusion. Acute encephalopathy - With underlying dementia - With underlying Parkinson's disease - UA negative for UTI - Chest x-ray no focal pneumonia resp panel negative - CT head no acute findings concerns for possible CVA? NIH stroke scale difficult to assess given her global encephalopathy, difficulty following commands but does have word finding difficulty according to family, upon admission it was 6, symptom onset over 48 hours ago, out of tPA window - Possible progression of underlying dementia/Parkinson's disease Plan - Will monitor closely - Neurochecks - NIH stroke scale - Aspiration precautions - Aspirin, statin -Allow for permissive hypertension - Cardiac echo, carotid ultrasound, telemetry monitoring, -Check lithium levels -Pro-Felipe, CRP, sed rate -Check TSH -Zyprexa as needed for agitation -Ativan as needed for agitation - Monitor mentation closely - Dysphagia eval, PT OT - Lovenox for DVT prophylaxis - CODE STATUS, discussed with patient's son who is patient's healthcare power of nuclear physics teacher, discussed CODE STATUS, he would like Rebecca to be DNR/DNI 10/19/24 [place] level normal. Acute on chronic confusion likely secondary to worsening dementia in view of Parkinson's disease. Infectious workup negative. CT head negative for acute stroke. She will follow-up PT. Follow-up case management for discharge planning. 10/20/24 Patient lives in assisted living and has been having worsening confusion likely secondary to worsening dementia and Parkinson's disease. Would need [facility]term prison facility Awaiting social work for discharge planning. 10/21/24 Patient was found to have c/o lower abdominal pain, bladder scan showed acute urinary retension with 650ml, straight cath revealed dirty urine with sediment. UA checked was positive for UTI. Started on IV ceftriaxone 1g daily. will follow up urine culture. Seems like there could still be a component of uti contributing to persistent AMS.Initial UA negative for UTI. will monitor for now. PDMP PDMP Reviewed: Not Reviewed Attestations 2 Medical Necessity Statement*: Will follow up social work in am for discharge planning Time Spent in Patient Care: 15minutes Coding Level of Care Code Acute Code for Chg Fwd Diagnoses Primary hypertension I10 Hypertension type: primary hypertension Presence of permanent cardiac pacemaker Z95.0 Cerebral vascular accident I63.9 Acute encephalopathy G93.40 Bipolar 1 disorder F31.9 Time Spent (min) 15
[2024-10-21] MEDS: cefTRIAXone 1,000 mg SDV 1000 MG IVP (11:36)
[2024-10-21] MEDS: acetaminophen 325 mg Tablet 650 MG PO (11:37)
[2024-10-21] MEDS: atorvastatin 40 mg Tablet PO (20:57)
[2024-10-21] MEDS: pantoprazole 40 mg SDV IVP (20:57)
[2024-10-21] MEDS: enoxaparin 40 mg/0.4 mL Syringe SUBCUT (20:58)
[2024-10-22] VITALS (10 sets, daily range): BP systolic 125–166; BP diastolic 70–85; PULSE 69–90; RESP 17–18; TEMP 36.5–36.9; O2SAT 93–97
[2024-10-22] MEDS: sodium chloride 0.9% 1,000 ML 75 ML IV ×2 (04:07→16:16)
[2024-10-22] MEDS: morphine 4 mg/mL SDV 1 mL 1 MG IVP (05:15)
[2024-10-22] MEDS: aspirin 81 mg EC Tablet PO (07:36)
[2024-10-22] MEDS: lithium carbonate 300 mg Capsule PO ×2 (07:36→19:58)
[2024-10-22] MEDS: folic acid 1 mg Tablet PO (07:36)
[2024-10-22] MEDS: levothyroxine 50 mcg Tablet PO (07:36)
--- NOTE | 2024-10-22 08:10 | PC.NURSE ---
This nurse returned sister, Gaby'karen, phone call at 8:07am.
[2024-10-22] MEDS: cefTRIAXone 1,000 mg SDV 1000 MG IVP (10:44)
--- NOTE | 2024-10-22 12:55 | PC.SOCIAL ---
IMM UPDATED IMM dated and initialed, copy placed in chart and copy given to patient
--- NOTE | 2024-10-22 17:22 | P.PN_ITS ---
Subjective 2 Subjective: No acute overnight events noted. Seems to be more alert today. Medications: Reviewed: Yes Vitals/I&O/Wt Last Vital Signs Temp 98.4 F 10/22/24 16:31 Pulse 79 10/22/24 16:31 Resp 17 10/22/24 16:31 BP 164/83 10/22/24 16:31 Pulse Ox 96 10/22/24 16:31 O2 Del Method Nasal Cannula 10/22/24 16:31 O2 Flow Rate 2 10/22/24 15:22 10/22/24 10/22/24 10/22/24 06:59 14:59 22:59 Intake Total 1000 / 2600 180 / 180 1031.25 / 1211.25 Output Total 900 / 2680 700 / 700 Balance 100 / -80 180 / 180 331.25 / 511.25 Weight last 48 hrs Weight 84.005 kg Weight 84.912 kg Physical Exam 2 Const: COMMON NORMALS: no acute distress HENMT: COMMON NORMALS: normocephalic HEAD & SCALP: normocephalic Neck/C-Spine: COMMON NORMALS: no JVD Resp: COMMON NORMALS: normal respiratory effort, No retractions, No use of accessory muscles and clear to auscultation bilaterally AUSCULTATION: clear to auscultation bilaterally Cardio: COMMON NORMALS: no JVD, regular rate, regular rhythm, S1 normal heart sound present and S2 normal heart sound present RATE: regular rate RHYTHM: regular rhythm HEART SOUNDS: S1 normal heart sound present and S2 normal heart sound present GI: COMMON NORMALS: Normal to inspection, nondistended, normoactive bowel sounds present, Soft to palpation, non-tender, No hepatosplenomegaly present, no masses and no bruits PALPATION: Yes Soft to palpation and Yes No hepatosplenomegaly present Extremity: COMMON NORMALS: no calf tenderness and no pedal edema Neuro: OTHER: She is more alert and awake, oriented to self but answering questions appropriately Urinary Catheter Management: Day Latex: Cath Placed During This Visit: yes Reason for Continuing Indwelling Catheter: Acute Urinary Retention or Obstruction Urinary Catheter Date of Insertion: 10/21/24 Urinary Catheter Time of Insertion: 08:40 Data 10/20/24 04:40 10/20/24 04:40 Micro: Microbiology 10/21/24 08:41 Urine Culture - Preliminary Urine,Clean Catch Gram Negative Rods A&P Assessment and plan (1) Hypertension: Qualifiers: Hypertension type: primary hypertension Qualified Code(s): I10 - Essential (primary) hypertension (2) Presence of permanent cardiac pacemaker: (3) Cerebral vascular accident: (4) Acute encephalopathy: (5) Bipolar 1 disorder: Plan 89 year old female who with a past medical history of dementia, Parkinson's disease, hypertension, hyperlipidemia, who presents [facility] from [facility] living [facility] for concerns for acute on chronic confusion. Acute encephalopathy - With underlying dementia - With underlying Parkinson's disease - UA negative for UTI - Chest x-ray no focal pneumonia resp panel negative - CT head no acute findings concerns for possible CVA? NIH stroke scale difficult to assess given her global encephalopathy, difficulty following commands but does have word finding difficulty according to family, upon admission it was 6, symptom onset over 48 hours ago, out of tPA window - Possible progression of underlying dementia/Parkinson's disease Plan - Will monitor closely - Neurochecks - NIH stroke scale - Aspiration precautions - Aspirin, statin -Allow for permissive hypertension - Cardiac echo, carotid ultrasound, telemetry monitoring, -Check lithium levels -Pro-Felipe, CRP, sed rate -Check TSH -Zyprexa as needed for agitation -Ativan as needed for agitation - Monitor mentation closely - Dysphagia eval, PT OT - Lovenox for DVT prophylaxis - CODE STATUS, discussed with patient's son who is patient's healthcare power of [place] attorney, discussed CODE STATUS, he would like Rebecca to be DNR/DNI 10/19/24 [place] level normal. Acute on chronic confusion likely secondary to worsening dementia in view of Parkinson's disease. Infectious workup negative. CT head negative for acute stroke. She will follow-up PT. Follow-up case management for discharge planning. 10/20/24 Patient lives in assisted living and has been having worsening confusion likely secondary to worsening dementia and Parkinson's disease. Would need long-term assisted facility Awaiting social work for discharge planning. 10/21/24 Patient was found to have c/o lower abdominal pain, bladder scan showed acute urinary retension with 650ml, straight cath revealed dirty urine with sediment. UA checked was positive for UTI. Started on IV ceftriaxone 1g daily. will follow up urine culture. Seems like there could still be a component of uti contributing to persistent AMS.Initial UA negative for UTI. will monitor for now. 10/22/24 She is more alert today. there could be UTI contributing to AMS. Continue current management. Awaiting for NH placement. PDMP PDMP Reviewed: Not Reviewed Attestations 2 Medical Necessity Statement*: Awaiting discharge Time Spent in Patient Care: 10minutes Coding Level of Care Code Acute Code for Chg Fwd Diagnoses Primary hypertension I10 Hypertension type: primary hypertension Presence of permanent cardiac pacemaker Z95.0 Cerebral vascular accident I63.9 Acute encephalopathy G93.40 Bipolar 1 disorder F31.9 Time Spent (min) 10
[2024-10-22] MEDS: LORazepam 2 mg/mL INJ 1 mL 1 MG IVP (18:31)
[2024-10-22] MEDS: pantoprazole 40 mg SDV IVP (19:58)
[2024-10-22] MEDS: enoxaparin 40 mg/0.4 mL Syringe SUBCUT (19:58)
[2024-10-22] MEDS: atorvastatin 40 mg Tablet PO (20:01)
[2024-10-23 03:39] VITALS: BP 164/72; PULSE 83; RESP 19; TEMP 36.5; O2SAT 93
[2024-10-23 05:10] LABS: Basophils # 0.1 10^3/uL (0.0-0.1); Basophils % 0.7 %; Eosinophils # 0.2 10^3/uL (0.0-0.8); Eosinophils % 2.8 %; Hematocrit 34.7 % (36-47); Lymphocytes # 1.1 10^3/uL (0.8-4.8); Lymphocytes % 12.9 %; Mean Corpuscular HGB Conc 30.3 g/dL (30-55); Mean Corpuscular Hemoglobin 30.3 pg (27-33); Mean Corpuscular Volume 100.3 fl (85-98); Mean Platelet Volume 10.6 fL (7.4-10.4); Monocytes # 0.5 10^3/uL (0.2-0.9); Monocytes % 6.2 %; Neutrophils # 6.69 10^3/uL (1.8-7.7); Neutrophils % 77.1 %; Nucleated Red Blood Cells % 0 %; Platelet Count 273 10^3/cmm (157-399); Red Blood Count 3.46 10^6/uL (3.85-5.65); Red Cell Distribution Width 13.2 % (12.1-15.1); White Blood Count 8.68 10^3/uL (3.29-11.43)
[2024-10-23 05:35] LABS: Anion Gap 15.3 (5-19); Blood Urea Nitrogen 10 mg/dL (8-23); Carbon Dioxide 21 mmol/L (22-29); Chloride 116 mmol/L (98-107); Creatinine Clr Calc Pharmacy 37.1164; Glucose 101 mg/dL (65-115); Osmolality Calculated 307 mOsm/kg (285-295); Potassium 3.3 mmol/L (3.5-5.1); Sodium 149 mmol/L (136-145)
[2024-10-23] MEDS: sodium chloride 0.9% 1,000 ML 75 ML IV (05:57)
[2024-10-23 07:32] VITALS: PULSE 82; O2SAT 91
[2024-10-23] MEDS: levothyroxine 50 mcg Tablet PO (07:33)
[2024-10-23] MEDS: folic acid 1 mg Tablet PO (07:33)
[2024-10-23] MEDS: aspirin 81 mg EC Tablet PO (07:33)
[2024-10-23] MEDS: lithium carbonate 300 mg Capsule PO ×2 (07:33→20:21)
[2024-10-23 08:00] VITALS: BP 160/77; PULSE 71; RESP 17; TEMP 37.1; O2SAT 93
[2024-10-23] MEDS: potassium chloride ER 20 mEq Tablet 40 MEQ PO ×2 (08:13→12:38)
[2024-10-23] MEDS: cefTRIAXone 1,000 mg SDV 1000 MG IVP (10:45)
[2024-10-23] MEDS: OLANZapine 10 mg VIAL 5 MG IM (11:14)
[2024-10-23 11:55] VITALS: BP 179/76; PULSE 77; RESP 18; TEMP 36.7; O2SAT 94
[2024-10-23] MEDS: LORazepam 2 mg/mL INJ 1 mL 1 MG IM (12:38)
--- NOTE | 2024-10-23 13:20 | PM.PN ---
Subjective Subjective: Seen her at bedside this morning. Seems little more confused as compared to yesterday but was able to answer questions appropriately. Medications: Reviewed: Yes Vitals/I&O/Wt Last Vital Signs Temp 98.0 F 10/23/24 11:55 Pulse 77 10/23/24 11:55 Resp 18 10/23/24 11:55 BP 179/76 10/23/24 11:55 Pulse Ox 94 10/23/24 11:55 O2 Del Method Room Air 10/23/24 11:55 O2 Flow Rate 2 10/23/24 07:40 10/22/24 10/23/24 10/23/24 22:59 06:59 14:59 Intake Total 1031.25 / 1211.25 1000 / 2211.25 385 / 385 Output Total 1180 / 1180 1200 / 2380 Balance -148.75 / 31.25 -200 / -168.75 385 / 385 Weight last 48 hrs Weight 84.028 kg Weight 84.005 kg Physical Exam Const: COMMON NORMALS: no acute distress HENMT: COMMON NORMALS: normocephalic HEAD & SCALP: normocephalic Neck/C-Spine: COMMON NORMALS: no JVD Resp: COMMON NORMALS: normal respiratory effort, No retractions, No use of accessory muscles and clear to auscultation bilaterally AUSCULTATION: clear to auscultation bilaterally Cardio: COMMON NORMALS: no JVD, regular rate, regular rhythm, S1 normal heart sound present and S2 normal heart sound present RATE: regular rate RHYTHM: regular rhythm HEART SOUNDS: S1 normal heart sound present and S2 normal heart sound present GI: COMMON NORMALS: Normal to inspection, nondistended, normoactive bowel sounds present, Soft to palpation, non-tender, No hepatosplenomegaly present, no masses and no bruits PALPATION: Yes Soft to palpation and Yes No hepatosplenomegaly present Extremity: COMMON NORMALS: no calf tenderness and no pedal edema Neuro: OTHER: She is more alert and awake, oriented to self but answering questions appropriately Urinary Catheter Management: Day Latex: Cath Placed During This Visit: yes Reason for Continuing Indwelling Catheter: Acute Urinary Retention or Obstruction Urinary Catheter Date of Insertion: 10/21/24 Urinary Catheter Time of Insertion: 08:40 Data 10/23/24 04:53 10/23/24 04:53 Micro: Microbiology 10/21/24 08:41 Urine Culture - Final Urine,Clean Catch Escherichia coli A&P Assessment and plan (1) Hypertension: Qualifiers: Hypertension type: primary hypertension Qualified Code(s): I10 - Essential (primary) hypertension (2) Presence of permanent cardiac pacemaker: (3) Cerebral vascular accident: (4) Acute encephalopathy: (5) Bipolar 1 disorder: Plan 89 year old female who with a past medical history of dementia, Parkinson's disease, hypertension, hyperlipidemia, who presents [facility] from [facility] living [facility] for concerns for acute on chronic confusion. Acute encephalopathy - With underlying dementia - With underlying Parkinson's disease - UA negative for UTI - Chest x-ray no focal pneumonia resp panel negative - CT head no acute findings concerns for possible CVA? NIH stroke scale difficult to assess given her global encephalopathy, difficulty following commands but does have word finding difficulty according to family, upon admission it was 6, symptom onset over 48 hours ago, out of tPA window - Possible progression of underlying dementia/Parkinson's disease Plan - Will monitor closely - Neurochecks - NIH stroke scale - Aspiration precautions - Aspirin, statin -Allow for permissive hypertension - Cardiac echo, carotid ultrasound, telemetry monitoring, -Check lithium levels -Pro-Felipe, CRP, sed rate -Check TSH -Zyprexa as needed for agitation -Ativan as needed for agitation - Monitor mentation closely - Dysphagia eval, PT OT - Lovenox for DVT prophylaxis - CODE STATUS, discussed with patient's son who is patient's healthcare power of disability attorney, discussed CODE STATUS, he would like Rebecca to be DNR/DNI 10/19/24 [place] level normal. Acute on chronic confusion likely secondary to worsening dementia in view of Parkinson's disease. Infectious workup negative. CT head negative for acute stroke. She will follow-up PT. Follow-up case management for discharge planning. 10/20/24 Patient lives in assisted living and has been having worsening confusion likely secondary to worsening dementia and Parkinson's disease. Would need long-term nursing home facility Awaiting social work for discharge planning. 10/21/24 Patient was found to have c/o lower abdominal pain, bladder scan showed acute urinary retension with 650ml, straight cath revealed dirty urine with sediment. UA checked was positive for UTI. Started on IV ceftriaxone 1g daily. will follow up urine culture. Seems like there could still be a component of uti contributing to persistent AMS.Initial UA negative for UTI. will monitor for now. 10/22/24 She is more alert today. there could be UTI contributing to AMS. Continue current management. Awaiting for NH placement. 10/23/24 She seems little bit more confused as compared to yesterday. Mental status waxing and waning likely secondary to Alzheimer's plus Parkinson's disease. Continue IV antibiotics for UTI. Spoke to her son Julio this morning, reported she was able to walk with a walker approximately half mile prior to hospitalization. Was able to take care of her ADLs. Currently she is not able to walk more than 30-35 feet without assistance. Labs this morning showed sodium of 149. Will discontinue IV fluids. She is otherwise medically stable to be discharged. Awaiting case management for discharge to nursing home facility. PDMP PDMP Reviewed: Not Reviewed Attestations Medical Necessity Statement*: Awaiting discharge plan Time Spent in Patient Care: 15 minutes Coding Level of Care Code Acute Code for Chg Fwd Diagnoses Primary hypertension I10 Hypertension type: primary hypertension Presence of permanent cardiac pacemaker Z95.0 Cerebral vascular accident I63.9 Acute encephalopathy G93.40 Bipolar 1 disorder F31.9 Time Spent (min) 15
[2024-10-23 16:00] VITALS: BP 175/74; PULSE 74; RESP 17; TEMP 36.7; O2SAT 93
[2024-10-23 20:00] VITALS: BP 164/76; PULSE 93; RESP 18; TEMP 37; O2SAT 92
[2024-10-23] MEDS: pantoprazole 40 mg SDV IVP (20:21)
[2024-10-23] MEDS: acetaminophen 325 mg Tablet 650 MG PO (20:21)
[2024-10-23] MEDS: enoxaparin 40 mg/0.4 mL Syringe SUBCUT (20:21)
[2024-10-23] MEDS: atorvastatin 40 mg Tablet PO (20:21)
[2024-10-24] VITALS: BP 166/79; PULSE 78; RESP 17; TEMP 36.9; O2SAT 92
[2024-10-24 04:00] VITALS: BP 181/77; PULSE 75; RESP 17; TEMP 37.1; O2SAT 94
[2024-10-24 07:30] VITALS: BP 179/83; PULSE 74; RESP 17; TEMP 36.6; O2SAT 96
--- NOTE | 2024-10-24 07:50 | PC.NURSE ---
palliative care coordinator rounds 10/23 @1005- patient sitting in the chair watching TV, oriented to self and birthday minus the year, told me it was february and conversation was pleasantly confused, visited for a while, conversation with her included her talking to other people who weren't present.
[2024-10-24] MEDS: lithium carbonate 300 mg Capsule PO (08:28)
[2024-10-24] MEDS: folic acid 1 mg Tablet PO (08:28)
[2024-10-24] MEDS: levothyroxine 50 mcg Tablet PO (08:28)
[2024-10-24] MEDS: aspirin 81 mg EC Tablet PO (08:28)
[2024-10-24 11:20] VITALS: BP 133/84; PULSE 82; RESP 15; TEMP 36.6; O2SAT 92
--- NOTE | 2024-10-24 11:33 | P.DS_ITS ---
Discharge Providers Date of Admission: 10/18/24 19:13 Date of Discharge: October 24, 2024 Attending Provider at Admission: Chilango Villarreal MD Attending Provider at Discharge: Yanni Benjamin MD Primary Care Provider: Johnnie Tam DO Diagnoses at Discharge Discharge Diagnosis (1) Hypertension: Status: Acute Qualifiers: Hypertension type: primary hypertension Qualified Code(s): I10 - Essential (primary) hypertension (2) Presence of permanent cardiac pacemaker: Status: Acute (3) Cerebral vascular accident: Status: Acute (4) Acute encephalopathy: Status: Acute (5) Bipolar 1 disorder: Status: Acute Reason for Visit Reason for Visit: ams - weakness Brief History: Rebecca Longoria is a 89 year old female who with a past medical history of dementia, Parkinson's disease, hypertension, hyperlipidemia, who presents [facility] from [facility] for concerns for acute on chronic confusion. According to family patient has had a gradual decline over the last few months, she used to ambulate, she can recognize family members, she could feed herself but she has had a decline over the last few months. But more rapid deterioration in the last few days. According to family numbers she has had increased confusion, increased agitation at times, word salad, word finding difficulty, no reported facial droop, no known focal weakness, or slurring of her words, no known falls, currently patient is alert to person, not to place, not to time, she is quite easily agitated, she tells me she wants to be left alone, she is moving bilateral upper and lower extremities, no facial droop, I cannot discern any slurring of words, Hospital Course Hospital Course Acute on chronic confusion likely secondary to worsening dementia in view of Parkinson's disease. Infectious workup negative. CT head negative for acute stroke. She will follow-up PT. Had waxing and wanning of her mental status during hospital stay. Also was found to have UTI and started on IV ceftriaxone 1g daily. Spoke to her son Julio yesterday morning, reported she was able to walk with a walker approximately half mile prior to hospitalization. Was able to take care of her ADLs. Currently she is not able to walk more than 30-35 feet without assistance. Hence will discharge to longterm facility for rehab. Will discharge her on po levofloxacin 750mg daily for 7 days. Need to follow up with PCP in 2 weeks Physical Exam Narrative: She is alert, awake, oriented to self, needs direction to follow. Const: COMMON NORMALS: no acute distress HENMT: COMMON NORMALS: normocephalic HEAD & SCALP: normocephalic Neck/C-Spine: COMMON NORMALS: no JVD Resp: COMMON NORMALS: normal respiratory effort, No retractions, No use of accessory muscles and clear to auscultation bilaterally AUSCULTATION: clear to auscultation bilaterally Cardio: COMMON NORMALS: no JVD, regular rate, regular rhythm, S1 normal heart sound present and S2 normal heart sound present RATE: regular rate RHYTHM: regular rhythm HEART SOUNDS: S1 normal heart sound present and S2 normal heart sound present GI: COMMON NORMALS: Normal to inspection, nondistended, normoactive bowel sounds present, Soft to palpation, non-tender, No hepatosplenomegaly present, no masses and no bruits PALPATION: Yes Soft to palpation and Yes No hepatos plenomegaly present Extremity: COMMON NORMALS: no calf tenderness and no pedal edema Neuro: OTHER: She is more alert and awake, oriented to self but answering questions appropriately Urinary Catheter Management: Day Latex: Cath Placed During This Visit: yes Reason for Continuing Indwelling Catheter: Acute Urinary Retention or Obstruction Urinary Catheter Date of Insertion: 10/21/24 Urinary Catheter Time of Insertion: 08:40 Discharge Data Studies Completed and Pending Completed Studies During Hospitalization Category Date Time Status CT chest wo con [id number] Stat Cat Scan 10/18/24 16:[address] head wo con* [id number] Stat Cat Scan 10/18/24 16:11 Completed XR chest 1V portable [id number] Stat Exams 10/18/24 16:11 Completed CV carotid duplex BI* [id number] Routine Ultrasound 10/18/24 20:52 Completed CV. echo complete* [id number] Routine Ultrasound 10/18/24 20:52 Completed Radiology Impressions Chest X-Ray 10/18/24 16:11 IMPRESSION: No acute findings. Head CT 10/18/24 16:11 IMPRESSION: No acute intracranial abnormality. Chest CT 10/18/24 16:29 IMPRESSION: No acute findings. Laboratory Results WBC 8.68 10^3/uL (3.29-11.43) 10/23/24 04:53 Corrected WBC Cancelled 10/19/24 04:54 RBC 3.46 10^6/uL (3.85-5.65) L 10/23/24 04:53 Hgb 10.50 g/dL (11.27-16.99) L 10/23/24 04:53 Hct 34.7 % (36-47) L 10/23/24 04:53 MCV 100.3 fl (85-98) H 10/23/24 04:53 MCH 30.3 pg (27-33) 10/23/24 04:53 MCHC 30.3 g/dL (30-55) 10/23/24 04:53 RDW 13.2 % (12.1-15.1) 10/23/24 04:53 Plt Count 273 10^3/cmm (157-399) 10/23/24 04:53 MPV 10.6 fL (7.4-10.4) H 10/23/24 04:53 Gran % Cancelled 10/19/24 04:54 Neut % (Auto) 77.1 % 10/23/24 04:53 Lymph % (Auto) 12.9 % 10/23/24 04:53 [place] % (Auto) 6.2 % 10/23/24 04:53 Eos % (Auto) 2.8 % 10/23/24 04:53 Baso % (Auto) 0.7 % 10/23/24 04:53 Neut # (Auto) 6.69 10^3/uL (1.8-7.7) 10/23/24 04:53 Lymph # (Auto) 1.1 10^3/uL (0.8-4.8) 10/23/24 04:53 [place] # (Auto) 0.5 10^3/uL (0.2-0.9) 10/23/24 04:53 Eos # (Auto) 0.2 10^3/uL (0.0-0.8) 10/23/24 04:53 Baso # (Auto) 0.1 10^3/uL (0.0-0.1) 10/23/24 04:53 Absolute Gran (auto) Cancelled 10/19/24 04:54 Nucleated RBC % (auto) 0 % 10/23/24 04:53 Nucleated RBCs # 0.0 /100WBC 10/23/24 04:53 ESR 30 mm/hr (0-15) H 10/18/24 16:40 Sodium 149 mmol/L (136-145) H 10/23/24 04:53 Potassium 3.3 mmol/L (3.5-5.1) L 10/23/24 04:53 Chloride 116 mmol/L (98-107) H 10/23/24 04:53 Carbon Dioxide 21 mmol/L (22-29) L 10/23/24 04:53 Anion Gap 15.3 (5-19) 10/23/24 04:53 BUN 10 mg/dL (8-23) 10/23/24 04:53 Creatinine 1.1 mg/dL (0.5-0.9) H 10/23/24 04:53 GFR Calculation Not Reportable 10/23/24 04:53 Glucose 101 mg/dL (65-115) 10/23/24 04:53 Calculated Osmolality 307 mOsm/kg (285-295) H 10/23/24 04:53 Lactic Acid 1.4 mmol/L (0.5-2.2) 10/18/24 16:42 Calcium 9.0 mg/dL (8.5-10.5) 10/23/24 04:53 Total Bilirubin 0.8 mg/dL (0.15-1.2) 10/19/24 04:54 AST 18 U/L (0-32) 10/19/24 04:54 ALT 11 U/L (0-33) 10/19/24 04:54 Alkaline Phosphatase 79 U/L (35-105) 10/19/24 04:54 C-Reactive Protein 203.2 mg/L (0.0-4.9) H 10/18/24 16:40 Total Protein 6.7 g/dL (6.6-8.7) 10/19/24 04:54 Albumin 3.5 g/dL (3.5-5.2) 10/19/24 04:54 Globulin 3.2 g/dL (1.3-4.6) 10/19/24 04:54 Procalcitonin 0.40 ng/mL (0-0.5) 10/18/24 16:40 TSH 1.34 uIU/mL (0.27-4.20) 10/18/24 16:40 Urine Color [place] (Yellow) A 10/21/24 08:41 Urine Appearance Turbid (CLEAR) A 10/21/24 08:41 Urine pH 7.0 (5-7) 10/21/24 08:41 Ur Specific [place] 1.008 (1.005-1.030) 10/21/24 08:41 Urine Protein 2+ (Negative) A 10/21/24 08:41 Urine Glucose (UA) Negative (Normal) 10/21/24 08:41 Urine Ketones Negative (Negative) 10/21/24 08:41 Urine Blood 3+ (Negative) A 10/21/24 08:41 Urine Nitrate Negative (Negative) 10/21/24 08:41 Urine Bilirubin Negative (Negative) 10/21/24 08:41 Urine Urobilinogen 1.0 mg/dL (Negative) 10/21/24 08:41 Ur Leukocyte Esterase 3+ (Negative) A 10/21/24 08:41 Urine RBC >100 /hpf (0-2) H 10/21/24 08:41 Urine WBC >100 /hpf (0-5) H 10/21/24 08:41 Ur Squamous Epith Cells 0-5 /hpf (0-5) 10/21/24 08:41 Amorphous Sediment Not Reportable 10/21/24 08:41 Urine Bacteria 4+ /hpf (NONE) H 10/21/24 08:41 Hyaline Casts 0-4 /lpf H 10/21/24 08:41 [place] 1.0 mmol/L (0.6-1.2) 10/18/24 16:40 Influenza A (PCR) Negative (Negative) 10/18/24 17:55 Influenza Type B (PCR) Negative (Negative) 10/18/24 17:55 RSV (PCR) Negative (Negative) 10/18/24 17:55 SARS-CoV-2 (PCR) Negative (Negative) 10/18/24 17:55 Vitals Last Vital Signs Temp 97.9 F 10/24/24 11:20 Pulse 82 10/24/24 11:20 Resp 15 10/24/24 11:20 BP 133/84 10/24/24 11:20 Pulse Ox 92 10/24/24 11:20 O2 Del Method Room Air 10/24/24 11:20 O2 Flow Rate 2 10/23/24 07:40 Discharge Plan Discharge Patient Disposition: Xfer SNF Condition: Stable Prescriptions: New atorvastatin 40 mg Tablet 40 mg PO BEDTIME 30 Days Qty: 30 0RF aspirin 81 mg Tablet,Delayed Release (Dr/Ec) 81 mg PO DAILY 30 Days Qty: 30 0RF levofloxacin 750 mg tablet 750 mg PO DAILY 7 Days Qty: 7 0RF Continued levothyroxine 50 mcg capsule 50 mcg PO DAILY@0800 folic acid 1 mg tablet 1,000 mcg PO DAILY@0800 Metamucil 3.4 gram/5.4 gram powder 1 tbsp PO DAILY Qty: 660 0RF Rx Instructions: mix into at least 8 oz of water or juice before administering triamcinolone acetonide 0.1 % cream 1 applic topical BID Qty: 30 1RF Rx Instructions: use on itchy skin areas bid x 2 weeks, repeat treatment as needed. loratadine 10 mg tablet 10 mg PO DAILY Qty: 30 0RF lidocaine [Salonpas (lidocaine)] 4 % adhesive patch,medicated 1 patch topical DAILY PRN (Reason: shoulder/muscle pain) Qty: 10 5RF Rx Instructions: place nightly before bedtime. lidocaine-menthol [Icy Hot Patch (lido-menthol)] 4-1 % adhesive patch,medicated 1 patch topical DAILY Qty: 30 3RF Rx Instructions: place one patch on left shoulder daily. lithium carbonate 300 mg capsule 300 mg PO BID@08,20 Qty: 180 3RF acetaminophen 500 mg tablet See Rx Instructions .ROUTE .COMPLEX Qty: 180 1RF Dose Instruction: TAKE TWO TABLETS BY MOUTH EVERY NIGHT AT BEDTIME FOR LEG PAIN Rx Instructions: TAKE TWO TABLETS BY MOUTH EVERY NIGHT AT BEDTIME FOR LEG PAIN latanoprost 0.005 % drops 1 drp ophthalmic (eye) BEDTIME@1999 Rx Instructions: use in each eye. docusate sodium 100 mg Capsule 100 mg PO DAILY PRN (Reason: Constipation) hydrocodone-acetaminophen 5-325 mg Tablet 1 tab PO BID PRN (Reason: Fever Or Pain) ondansetron HCl 4 mg Tablet 4 mg PO Q6H PRN (Reason: Nausea And Vomiting) hydroxychloroquine 200 mg Tablet 200 mg PO BID Discontinued metoprolol tartrate 100 mg Tablet 100 mg PO BID@08,20 Qty: 0 0RF amlodipine 10 mg Tablet 10 mg PO DAILY Discharge Orders: Discharge Order (Routine); Ordered 10/24/24 Ordered By: Yanni Benjamin Referrals: [facility] [Outside] Johnnie Tam DO [Primary Care Provider] - Discharge Diet: Regular Discharge Activity: As per PT/OT instructions Patient Instructions: Altered Mental Status (ED), Opioid Safety Discharge Attestations Time Spent in Discharge Care*: less than 30 min Status at Discharge: Cognitive status at discharge: severely impaired cognition , Behavioral status at discharge: cooperative , Quality Metrics Clinical Quality Measures [ No reported AMI, CVA or VTE this stay] Coding Level of Care Code Acute Code for Chg Fwd Diagnoses Primary hypertension I10 Hypertension type: primary hypertension Presence of permanent cardiac pacemaker Z95.0 Cerebral vascular accident I63.9 Acute encephalopathy G93.40 Bipolar 1 disorder F31.9 Time Spent (min) 20
--- NOTE | 2024-10-24 12:06 | PC.NURSE ---
This nurse called report to ESTEVAN King at [facility] at 1200. Their facility will be coming to pick pt up.
[2024-10-24 13:38] VITALS: BP 130/80; PULSE 84; O2SAT 92
== END 2024-10-24 13:39 | disposition skilled nursing facility (03) | DRG 56 ==
LOC: ER 19:08 → MEDSURG 19:52
PROVIDERS: Admitting Provider Family Medicine; Emergency Provider Emergency Medicine; PCP Family Medicine; Visit Provider Internal Medicine
DX: G31.83 Neurocognitive disorder with Lewy bodies (principal); G93.41 Metabolic encephalopathy; N39.0 Urinary tract infection, site not specified; F02.818 Dementia in other diseases classified elsewhere, unspecified severity, with other behavioral disturbance; R47.01 Aphasia; F02.811 Dementia in other diseases classified elsewhere, unspecified severity, with agitation; Z66 Do not resuscitate; G20.A1 Parkinson's disease without dyskinesia, without mention of fluctuations; F31.9 Bipolar disorder, unspecified; I10 Essential (primary) hypertension; E03.9 Hypothyroidism, unspecified; R13.10 Dysphagia, unspecified; R33.9 Retention of urine, unspecified; E78.5 Hyperlipidemia, unspecified; Z95.0 Presence of cardiac pacemaker; Z79.890 Hormone replacement therapy; Z79.899 Other long term (current) drug therapy
CPT/HCPCS: 36415; 51702; 70450; 71045; 71250; 80048; 80053; 80178; 81001; 83605; 84145; 84443; 85025; 85651; 86140; 87040; 87077; 87086; 87186; 87637; 93005; 93306; 93880; 94664; 96372; 96374; 97116; 97163; 97165; 97530; 97535; 99285; J0696; J1630; J1650; J2060; J2270; J2470; J3490; J7030; J9999; Q3014